=== PATIENT | male | born 1955 | race Caucasian/White ===

== ENCOUNTER 2017-02-11 10:39 | Emergency (ER) | payer MEDICAID, MEDICARE, OTHER ==
[2017-02-11 10:51] VITALS: BP 145/75
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
== END 2017-02-11 11:18 | disposition home or self-care (01) ==
LOC: ER 10:39
DX: L98.9 Disorder of the skin and subcutaneous tissue, unspecified (principal); F17.200 Nicotine dependence, unspecified, uncomplicated
CPT/HCPCS: 99282

== ENCOUNTER 2017-02-28 06:49 | Emergency (ER) | payer MEDICARE ==
[2017-02-28] MEDS ORDERED: IBUPROFEN 800 MG TABLET PO ONE (08:02)
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
[2017-02-28 09:18] VITALS: BP 139/94
== END 2017-02-28 08:55 | disposition home or self-care (01) ==
LOC: ER 06:49
DX: M16.0 Bilateral primary osteoarthritis of hip (principal); G89.29 Other chronic pain; M25.552 Pain in left hip; M25.551 Pain in right hip; R03.0 Elevated blood-pressure reading, without diagnosis of hypertension
CPT/HCPCS: 99283; 73522; A9270

== ENCOUNTER 2017-03-29 16:45 | Emergency (ER) | payer MEDICARE | END 2017-03-29 17:22 | disposition left against medical advice (07) | LOC: ER 16:45 | DX: Z53.9 Procedure and treatment not carried out, unspecified reason (principal); M25.559 Pain in unspecified hip ==

== ENCOUNTER 2017-04-10 14:02 | Emergency (ER) | payer MEDICARE ==
[2017-04-10 14:15] VITALS: BP 134/74
== END 2017-04-10 14:15 | disposition left against medical advice (07) ==
LOC: ER 14:02
DX: Z53.21 Procedure and treatment not carried out due to patient leaving prior to being seen by health care provider (principal)

== ENCOUNTER 2017-04-11 16:09 | Emergency (ER) | payer MEDICARE | END 2017-04-11 17:00 | disposition left against medical advice (07) | LOC: ER 16:09 | DX: Z56.9 Unspecified problems related to employment (principal); M25.569 Pain in unspecified knee ==

== ENCOUNTER 2017-04-12 09:11 | Emergency (ER) | payer MEDICARE ==
[2017-04-12 09:35] VITALS: BP 127/78
== END 2017-04-12 10:02 | disposition left against medical advice (07) ==
LOC: ER 09:11
DX: Z53.21 Procedure and treatment not carried out due to patient leaving prior to being seen by health care provider (principal)

== ENCOUNTER 2017-04-12 11:34 | Emergency (ER) | payer MEDICARE ==
[2017-04-12 11:54] VITALS: BP 135/101
[2017-04-12] MEDS ORDERED: NAPROXEN 250 MG TABLET PO ONE (12:25)
--- NOTE | 2017-04-12 12:30 | ER Document Report ---
HPI - HPI Patient complains to provider of: Patient presents requesting a medication refill Onset: Other - 3 days Onset/Duration: Persistent Quality of pain: Achy Pain Level: 2 Context: Patient complains of a flareup of his chronic knee pain for the past 3 days. Patient states that he has arthritis and has had knee pain like this in the past. Patient states that previously he has been prescribed naproxen and he comes today for refill of his naproxen. Patient denies any trauma to his knees. Patient denies any recent illness. Patient states pain is typical pain that he has had in the past. Associated Symptoms: Other - knee pain. denies: Fever Exacerbated by: Movement Relieved by: Denies Similar symptoms previously: Yes Recently seen / treated by doctor: No - ROS ROS below otherwise negative: Yes Systems Reviewed and Negative: Yes All other systems reviewed and negative - CONSTITUTIONAL Constitutional: DENIES: Fever, Chills - NEURO Neurology: DENIES: Weakness - GASTROINTESTINAL Gastrointestinal: DENIES: Nausea, Patient vomiting - MUSCULOSKELETAL Musculoskeletal: REPORTS: Extremity pain - bilat knees, Swelling - DERM Skin Color: Normal Skin Problems: None Past Medical History - General Information source: Patient - Social History Smoking Status: Never Smoker Frequency of alcohol use: Occasional Drug Abuse: None Occupation: none Lives with: Alone Family History: Hyperlipidemia, Hypertension Patient has suicidal ideation: No Patient has homicidal ideation: No - Past Medical History Cardiac Medical History: Reports: Hx Hypercholesterolemia Renal/ Medical History: Denies: Hx Peritoneal Dialysis GI Medical History: Reports: Hx Hepatitis - c Musculoskeltal Medical History: Reports Hx Arthritis, Reports Hx Musculoskeletal Deformity, Reports Hx Musculoskeletal Trauma Psychiatric Medical History: Reports: Hx Schizophrenia Infectious Medical History: Reports: Hx Hepatitis - c Past Surgical History: Reports: Hx Inguinal Hernia, Hx Oral Surgery - Hair lip repaired - Immunizations Immunizations up to date: Yes Hx Diphtheria, Pertussis, Tetanus Vaccination: Yes Vertical Provider Document - CONSTITUTIONAL Agree With Documented VS: Yes Exam Limitations: No Limitations General Appearance: WD/WN, No Apparent Distress - INFECTION CONTROL TRAVEL OUTSIDE OF THE [place] IN LAST 30 DAYS: No - HEENT HEENT: Atraumatic, Normocephalic - NECK Neck: Normal Inspection, Supple - RESPIRATORY Respiratory: Breath Sounds Normal, No Respiratory Distress, Chest Non-Tender O2 Sat by Pulse Oximetry: 96 - CARDIOVASCULAR Cardiovascular: Regular Rate, Regular Rhythm, No Murmur Pulses: Normal: Posterior tibial - BACK Back: Normal Inspection. negative: CVA Tenderness-Right, CVA Tenderness-Left - MUSCULOSKELETAL/EXTREMETIES Musculoskeletal/Extremeties: MAEW, FROM, Tender - bilat knee tenderness with 1+ edema bilaterally. Normal skin color and temperature overlying joint. No laxity with varus or valgus maneuvers. Patellar tendons intact bilaterally - NEURO Level of Consciousness: Awake, Alert, Appropriate Motor/Sensory: No Motor Deficit - DERM Integumentary: Warm, Dry Notes: Normal skin color and temperature overlying bilateral knee joints Course - Vital Signs Vital signs: Temp Pulse Resp BP Pulse Ox 97.6 F 82 20 135/101 H 96 04/12/17 11:52 04/12/17 11:52 04/12/17 11:52 04/12/17 11:52 04/12/17 11:52 Discharge - Discharge Clinical Impression: Arthritis, Bilateral chronic knee pain Condition: Stable Disposition: HOME, SELF-CARE Instructions: Arthritis ([facility]), Anti-Inflammatory Medication ([facility]) Additional Instructions: Return immediately for any new or worsening symptoms Followup with your primary care provider, call tomorrow to make a followup appointment Prescriptions: Naproxen [Naprosyn 250 Nmg Tablet] 1 tab PO BID PRN #20 tablet PRN Reason: Referrals: [facility] [Provider Group] - Follow up as needed
== END 2017-04-12 12:45 | disposition home or self-care (01) ==
LOC: ER 11:34
DX: G89.29 Other chronic pain (principal); M25.561 Pain in right knee; M25.562 Pain in left knee; M19.90 Unspecified osteoarthritis, unspecified site
CPT/HCPCS: 99281; A9270

== ENCOUNTER 2017-04-27 15:18 | Emergency (ER) | payer MEDICARE ==
[2017-04-27] MEDS ORDERED: NAPROXEN 250 MG TABLET PO ONE (16:54)
--- NOTE | 2017-04-27 16:57 | ER Document Report ---
HPI - HPI Patient complains to provider of: chronic knee pain Onset/Duration: Constant Quality of pain: Achy Pain Level: 4 Context: baseline knee pain and swelling Exacerbated by: Movement, Walking Relieved by: Remaining still Similar symptoms previously: Yes Recently seen / treated by doctor: Yes - DERM Skin Color: Normal Past Medical History - Social History Smoking Status: Current Every Day Smoker Family History: Hyperlipidemia, Hypertension Patient has suicidal ideation: No Patient has homicidal ideation: No - Past Medical History Cardiac Medical History: Reports: Hx Hypercholesterolemia Renal/ Medical History: Denies: Hx Peritoneal Dialysis GI Medical History: Reports: Hx Hepatitis - c Musculoskeltal Medical History: Reports Hx Arthritis, Reports Hx Musculoskeletal Deformity, Reports Hx Musculoskeletal Trauma Psychiatric Medical History: Reports: Hx Schizophrenia Infectious Medical History: Reports: Hx Hepatitis - c Past Surgical History: Reports: Hx Inguinal Hernia, Hx Oral Surgery - Hair lip repaired - Immunizations Immunizations up to date: Yes Hx Diphtheria, Pertussis, Tetanus Vaccination: Yes Vertical Provider Document - CONSTITUTIONAL Agree With Documented VS: Yes Exam Limitations: No Limitations General Appearance: WD/WN, No Apparent Distress - INFECTION CONTROL TRAVEL OUTSIDE OF THE [place] IN LAST 30 DAYS: No - RESPIRATORY O2 Sat by Pulse Oximetry: 99 - CARDIOVASCULAR Pulses: Normal: Femoral, Popliteal, Dorsalis pedis - MUSCULOSKELETAL/EXTREMETIES Musculoskeletal/Extremeties: MAEW, FROM, Non-Tender, Edema. negative: Eccymosis Notes: swelling of bilateral knees without pitting edema - NEURO Level of Consciousness: Awake, Alert, Appropriate Motor/Sensory: No Motor Deficit, No Sensory Deficit - DERM Integumentary: Warm, Dry, No Rash Course - Re-evaluation Re-evalutation: 04/27/17 19:12 Patient is a 60 mg emergency room, no acute distress afebrile. Full range of motion bilateral knees without any evidence of erythema, gout, septic joint. Reason for additional imaging or lab work at this time given that this patient' s baseline. Patient able to ambulate without any difficulty. Discharged with naproxen and follow-up with primary care. - Vital Signs Vital signs: Temp Pulse Resp BP Pulse Ox 97.8 F 95 20 135/88 H 99 04/27/17 15:41 04/27/17 15:41 04/27/17 15:41 04/27/17 15:41 04/27/17 15:41 Discharge - Discharge Clinical Impression: Chronic knee pain Condition: Good Disposition: HOME, SELF-CARE Instructions: Ice & Elevation ([facility]), Arthritis ([facility]), Family Physicians / Practices Additional Instructions: When your prescription is completed for naproxen, you can take aleve over-the- counter Please follow up with a primary care provider Prescriptions: Methylprednisolone [Medrol Dosepack (4 mg/Tab) 21 Tab/Dosepak] 4 mg PO ASDIR PRN #21 tab.ds.pk PRN Reason: Naproxen [Naprosyn 250 mg Tablet] 250 mg PO BID #20 tablet Referrals: MARV FORDE MD [Primary Care Provider] - Follow up as needed
[2017-04-27 17:08] VITALS: BP 126/74
== END 2017-04-27 17:07 | disposition home or self-care (01) ==
LOC: ER 15:18
DX: G89.29 Other chronic pain (principal); M25.569 Pain in unspecified knee; M25.462 Effusion, left knee; M25.461 Effusion, right knee; F17.200 Nicotine dependence, unspecified, uncomplicated
CPT/HCPCS: 99283; A9270

== ENCOUNTER 2017-05-18 16:43 | Emergency (ER) | payer MEDICARE ==
--- NOTE | 2017-05-18 17:29 | ER Document Report ---
ED Extremity Problem, Lower - General Chief Complaint: Ankle Pain Stated Complaint: LESION ON FOREHEAD,ANKLE PAIN Time Seen by Provider: 05/18/17 17:05 Mode of Arrival: Ambulatory Information source: Patient Notes: 51-year-old male presents to ED for pain swelling and bruising to his ankle and knee. TRAVEL OUTSIDE OF THE [place] IN LAST 30 DAYS: No - HPI Patient complains to provider of: Pain, Swelling Location: Ankle, Knee Occurred: Last week Where: [place]doors Onset/Duration: Gradual Quality of pain: Achy Severity: Moderate Pain Level: 4 Recent injury: No Associated symptoms: Painful ambulation Exacerbated by: Movement, Walking Relieved by: Nothing - Related Data Allergies/Adverse Reactions: Horse/Equine Containing Products [Horse/Equine Product Derivatives] Allergy ( Verified 05/18/17 16:48) Past Medical History - General Information source: Patient - Social History Smoking Status: Current Some Day Smoker Cigarette use (# per day): Yes Smoking Education Provided: Yes - Less than 2 minutes Frequency of alcohol use: None Drug Abuse: None Lives with: Alone Family History: Hyperlipidemia, Hypertension Patient has suicidal ideation: No Patient has homicidal ideation: No - Past Medical History Cardiac Medical History: Reports: Hx Hypercholesterolemia Pulmonary Medical History: Reports: None EENT Medical History: Reports: None Neurological Medical History: Reports: None Endocrine Medical History: Reports: None Renal/ Medical History: Reports: None Malignancy Medical History: Reports None GI Medical History: Reports: Hx Hepatitis - c Musculoskeltal Medical History: Reports Hx Arthritis, Reports Hx Musculoskeletal Deformity, Reports Hx Musculoskeletal Trauma Skin Medical History: Reports None Psychiatric Medical History: Reports: Hx Schizophrenia Traumatic Medical History: Reports: Hx Fractures Infectious Medical History: Reports: Hx Hepatitis - c Past Surgical History: Reports: Hx Inguinal Hernia, Hx Oral Surgery - Hair lip repaired - Immunizations Immunizations up to date: Yes Hx Diphtheria, Pertussis, Tetanus Vaccination: Yes Review of Systems - Review of Systems Constitutional: No symptoms reported EENT: No symptoms reported Cardiovascular: No symptoms reported Respiratory: No symptoms reported Gastrointestinal: No symptoms reported Genitourinary: No symptoms reported Male Genitourinary: No symptoms reported Musculoskeletal: No symptoms reported Skin: Change in color - From mid thigh to ankle greenish colored to left leg red swollen area to knee and ankle Hematologic/Lymphatic: No symptoms reported Neurological/Psychological: No symptoms reported -: Yes All other systems reviewed and negative Physical Exam - Vital signs Vitals: Temp Pulse Resp BP Pulse Ox 98.1 F 105 H 18 107/62 100 05/18/17 16:50 05/18/17 16:50 05/18/17 16:50 05/18/17 16:50 05/18/17 16:50 Interpretation: Normal - General General appearance: Appears well, Alert - HEENT Head: Normocephalic, Atraumatic Eyes: Normal Pupils: PERRL - Respiratory Respiratory status: No respiratory distress Chest status: Nontender Breath sounds: Normal Chest palpation: Normal - Cardiovascular Rhythm: Regular Heart sounds: Normal auscultation Murmur: No - Abdominal Inspection: Normal Distension: No distension Bowel sounds: Normal Tenderness: Nontender Organomegaly: No organomegaly - Back Back: Normal, Nontender - Extremities General upper extremity: Normal inspection, Nontender, Normal color, Normal ROM , Normal temperature General lower extremity: Normal ROM, Normal weight bearing. No: Natanael's sign Calf: Tender, Ecchymosis, Other - vasculitis swelling Ankle: Tender, Ecchymosis, Edema Foot: Tender, Ecchymosis, Edema - Neurological Neuro grossly intact: Yes Cognition: Normal Orientation: AAOx4 [place] Coma Scale Eye Opening: Spontaneous Jo Coma Scale Verbal: Oriented [place] Coma Scale Motor: Obeys Commands Jo Coma Scale Total: 15 Speech: Normal Motor strength normal: LUE, RUE, LLE, RLE Sensory: Normal - Psychological Associated symptoms: Normal affect, Normal mood - Skin Skin Temperature: Warm Skin Moisture: Dry Skin Color: Normal Location of irregularity: Extremities Irregularity with: Swelling, Tenderness, Inflammation Course - Re-evaluation Re-evalutation: 05/18/17 17:[address] Dejesus to come and look at the legs and ankles. We were able to get a pedal pulse with Doppler. Treat with Keflex and have patient return in 3 or 4 days and legs are not improving. - Vital Signs Vital signs: Temp Pulse Resp BP Pulse Ox 98.1 F 74 18 144/74 H 97 05/18/17 17:41 05/18/17 17:41 05/18/17 17:41 05/18/17 17:41 05/18/17 17:41 Discharge - Discharge Clinical Impression: Vasculitis Condition: Stable Disposition: HOME, SELF-CARE Instructions: Family Physicians / Practices Additional Instructions: Vasculitis Vasculitis is an immune disease. An inflammation in the blood vessel harris is making them burst. It occurs as your body reacts to something in your blood stream. The most common causes are drugs and infection. The skin sores may look like hives at first, but they aren't usually itchy. Then each spot of rash develops a blackish bruise in it. The skin over the bump may even and form a scab. The disease can last two to four weeks. Severe cases may need to be in the hospital. Most patients recover well at home. We treat vasculitis with steroids (cortisone-type medicine). Mouth sores can be treated by rubbing in diphenhydramine (Benadryl) elixir, or using a topical anesthetic. Return if you have severe headache, vomiting, abdominal pain, shortness of breath, blood in the urine, or if the rash becomes severe. Cephalexin The antibiotic you've been prescribed is a member of the cephalosporin class. This type of antibiotic covers a wide variety of infections, including those of the skin, lungs, and urinary tract. It's useful for staph infections. This antibiotic is slightly similar to the penicillin family. In rare cases , a person who is allergic to penicillin will also be allergic to this medication. If you have had a severe allergic reaction to penicillin, and have not taken this antibiotic since that time, notify your doctor. Antibiotics which cover many germs ("broad spectrum" antibiotics) are more likely to cause diarrhea or "yeast" infections. Women prone to vaginal yeast problems may suffer an attack after taking this antibiotic. In infants, oral thrush (white spots "stuck" on the cheek) or yeast diaper rash may result. See your doctor if these problems occur. Call at once if you develop itching, hives , shortness of breath, or lightheadedness. Acetaminophen Acetaminophen may be taken for pain relief or fever control. It's much safer than aspirin, offering a wider range of "safe" dosages. It is safe during . Some brand names are Tylenol, Panadol, Datril, Anacin 3, Tempra, and Liquiprin. Acetaminophen can be repeated every four hours. The following are maximum recommended dosages: WEIGHT Dose Drops Elixir Chewable( 80mg) (LBS.) drprs=droppers tsp=teaspoon 6 40 mg .4 ml (1/2) 6-11 80 mg .8 ml (full) 1/2 tsp 1 tab 12-16 120 mg 1 1/2 drprs 3/4 tsp 1 1/2 tabs 17-23 160 mg 2 drprs 1 tsp 2 tabs 24-30 240 mg 3 drprs 1 1/2 tsp 3 tabs 30-35 320 mg 2 tsp 4 tabs 36-41 360 mg 2 1/4 tsp 4 1 /2 tabs 42-47 400 mg 2 1/2 tsp 5 tabs 48-53 480 mg 3 tsp 6 tabs 54-59 520 mg 3 1/4 tsp 6 1 /2 tabs 60-64 560 mg 3 1/2 tsp 7 tabs 65-70 600 mg 3 3/4 tsp 7 1 /2 tabs 71-76 640 mg 4 tsp 8 tabs 77-82 720 mg 4 1/2 tsp 9 tabs 83-88 800 mg 5 tsp 10 tabs >89 pounds or adults 650 mg to 900 mg Acetaminophen can be repeated every four hours. Maximum daily dose not to exceed 4000 mg. These maximum recommended dosages are slightly higher than the dosages written on the product container, but these dosages are very safe and well below the toxic dosage for acetaminophen. FOLLOW-UP CARE: If you have been referred to a physician for follow-up care, call the physician s office for an appointment as you were instructed or within the next two days. If you experience worsening or a significant change in your symptoms, notify the physician immediately or return to the Emergency Department at any time for re-evaluation. Return to ED and 2-3 days of her legs are not improving Prescriptions: Cephalexin Monohydrate [Keflex 500 mg Capsule] 500 mg PO QID #28 capsule Referrals: [facility] [Provider Group] - Follow up as needed
[2017-05-18] MEDS ORDERED: CEPHALEXIN 500 MG CAPSULE PO ONE (17:33)
[2017-05-18 17:41] VITALS: BP 144/74
== END 2017-05-18 17:50 | disposition home or self-care (01) ==
LOC: ER 16:43
DX: I77.6 Arteritis, unspecified (principal); M25.579 Pain in unspecified ankle and joints of unspecified foot; M79.89 Other specified soft tissue disorders; F17.210 Nicotine dependence, cigarettes, uncomplicated
CPT/HCPCS: 99283; A9270

== ENCOUNTER 2017-06-03 10:03 | Emergency (ER) | payer MEDICARE ==
--- NOTE | 2017-06-03 10:09 | ER Document Report ---
ED General - General Stated Complaint: WEAKNESS Mode of Arrival: Ambulatory Information source: Patient Notes: 62 yr old male homeless with hx of hep-c presents with complaints of dizziness. Pt noted to be hypotensive by ems. denies any chest pain , sob , difficutly breathing TRAVEL OUTSIDE OF THE [place] IN LAST 30 DAYS: No - HPI Onset: Just prior to arrival Onset/Duration: Sudden Quality of pain: No pain Severity: Mild Pain Level: Denies Associated symptoms: Weakness Exacerbated by: Denies Relieved by: Denies Similar symptoms previously: No Recently seen / treated by doctor: No - Related Data Allergies/Adverse Reactions: Horse/Equine Containing Products [Horse/Equine Product Derivatives] Allergy ( Verified 06/03/17 10:15) Past Medical History - Social History Smoking Status: Current Every Day Smoker Cigarette use (# per day): Yes Chew tobacco use (# tins/day): No Smoking Education Provided: No Family History: Hyperlipidemia, Hypertension - Past Medical History Cardiac Medical History: Reports: Hx Hypercholesterolemia Renal/ Medical History: Denies: Hx Peritoneal Dialysis GI Medical History: Reports: Hx Hepatitis - c Musculoskeltal Medical History: Reports Hx Arthritis, Reports Hx Musculoskeletal Deformity, Reports Hx Musculoskeletal Trauma Psychiatric Medical History: Reports: Hx Schizophrenia Traumatic Medical History: Reports: Hx Fractures Infectious Medical History: Reports: Hx Hepatitis - c Past Surgical History: Reports: Hx Inguinal Hernia, Hx Oral Surgery - Hair lip repaired - Immunizations Immunizations up to date: Yes Hx Diphtheria, Pertussis, Tetanus Vaccination: Yes Physical Exam - Vital signs Vitals: Temp Resp BP Pulse Ox 97.6 F 33 H 107/55 L 93 06/03/17 10:05 06/03/17 10:05 06/03/17 10:05 06/03/17 10:05 Course - Re-evaluation Re-evalutation: 06/03/17 11:28 Patient was found hypotensive by EMS, he states that he rather drink than take medications for his hepatitis and that he is 60 years old and there is no point of any other interventions 06/03/17 13:29 saul wise paged for cocnerns of esophageal variceal bleed 06/03/17 14:05 Gabrielle paged since saul wise able to only place on list 06/03/17 14:24 [facility] accepts but no bed available , placed on list Dr Zepeda accepting hospitalist Natalio paged 06/03/17 14:51 Dr Myla Lance accepts - Vital Signs Vital signs: Temp Pulse Resp BP Pulse Ox 97.6 F 18 90/56 L 92 06/03/17 10:05 06/03/17 14:05 06/03/17 14:05 06/03/17 14:05 - Laboratory Result Diagrams: 06/03/17 10:49 06/03/17 10:49 Laboratory results interpreted by me: 06/03/17 06/03/17 06/03/17 10:29 10:49 10:49 RBC 2.58 L Hgb 8.1 L Hct 26.6 L MCV 103 H MCHC 30.6 L RDW 16.4 H Seg Neutrophils % 85.3 H Lymphocytes % 8.2 L Sodium 134.4 L Potassium 5.1 H Chloride 109 H Carbon Dioxide 13 L BUN 26 H Calcium 8.2 L Total Bilirubin 4.0 H Direct Bilirubin 2.3 H Total Protein 6.0 L Albumin 2.8 L Urine Bilirubin SMALL H Urine Urobilinogen 4.0 H - Diagnostic Test Radiology reviewed: Image reviewed, Reports reviewed Critical Care Note - Critical Care Note Total time excluding time spent on procedures (mins): 45 Comments: minutes of critical care time spent in direct contact evaluating and reevaluating the patient, treating symptoms, reviewing labs and studies and speaking with family and consultants excluding any procedures Discharge - Discharge Clinical Impression: Esophageal varices Qualifiers: Esophageal varices type: unspecified type Esophageal varices bleeding: without bleeding Qualified Code(s): I85.00 - Esophageal varices without bleeding Hepatitis C Qualifiers: Viral hepatitis chronicity: acute Hepatic coma status: without hepatic coma Qualified Code(s): B17.10 - Acute hepatitis C without hepatic coma Anemia Qualifiers: Anemia type: unspecified type Qualified Code(s): D64.9 - Anemia, unspecified Hypotension Qualifiers: Hypotension type: unspecified hypotension type Qualified Code(s): I95.9 - Hypotension, unspecified Condition: Stable Disposition: [facility]
[2017-06-03] MEDS: NORMAL SALINE 1000 ML 1,000 ML IV PRN ×2 (10:17→11:05)
[2017-06-03 10:50] LABS: APPEARANCE,URINE SLIGHTLY-CLOUDY; BILIRUBIN,URINE SMALL (NEGATIVE); GLUCOSE, URINE NEGATIVE (NEGATIVE); KETONES,URINE NEGATIVE (NEGATIVE); LEUKOCYTE ESTERASE,URINE NEGATIVE (NEGATIVE); NITRITE,URINE NEGATIVE (NEGATIVE); PROTEIN,URINE NEGATIVE (NEGATIVE); URINE SPECIFIC GRAVITY 1.024
[2017-06-03 11:21] LABS: ABSOLUTE BASOPHILS # (AUTO) 0.1 10^3/uL (0.0-0.2); ABSOLUTE LYMPHOCYTES (AUTO) 0.5 10^3/uL (0.5-4.7); ABSOLUTE MONOCYTES (AUTO) 0.3 10^3/uL (0.1-1.4); ABSOLUTE NEUT (AUTO) 5.4 10^3/uL (1.7-8.2); BASOPHILS % (AUTO) 1.2 % (0-2); EOSINOPHILS % (AUTO) 0.2 % (0-6); HEMATOCRIT 26.6 % (37.9-51.0); HEMOGLOBIN 8.1 g/dL (13.5-17.0); HGB HCT DIFFERENCE -2.3; LYMPHOCYTES % (AUTO) 8.2 % (13-45); MEAN CORPUSCULAR HEMOGLOBIN 31.5 pg (27.0-33.4); MEAN CORPUSCULAR HGB CONC 30.6 g/dL (32.0-36.0); MEAN CORPUSCULAR VOLUME 103 fl (80-97); MONOCYTES % (AUTO) 5.1 % (3-13); RED BLOOD COUNT 2.58 10^6/uL (4.35-5.55); RED CELL DISTRIBUTION WIDTH 16.4 % (11.5-14.0); SEGMENTED NEUTROPHILS % (AUTO) 85.3 % (42-78); WHITE BLOOD COUNT 6.3 10^3/uL (4.0-10.5)
[2017-06-03] MEDS ORDERED: IPRATROPIUM/ALBUTEROL 0.5-2.5 MG/3 ML AMPUL NEB ONE ×2 (11:28)
[2017-06-03 11:37] LABS: ALANINE AMINOTRANSFERASE 29 U/L (21-72); ALBUMIN 2.8 g/dL (3.5-5.0); ALKALINE PHOSPHATASE 80 U/L (38-126); ANION GAP 12 (5-19); ASPARTATE AMINO TRANSFERASE 36 U/L (17-59); BILIRUBIN,DIRECT 2.3 mg/dL (0.0-0.4); BLOOD UREA NITROGEN 26 mg/dL (7-20); CALCIUM 8.2 mg/dL (8.4-10.2); CARBON DIOXIDE 13 mmol/L (22-30); CHLORIDE 109 mmol/L (98-107); CREATINE KINASE 106 U/L (55-170); CREATININE RESULT 0.99 mg/dL (0.52-1.25); GLUCOSE 105 mg/dL (75-110); POTASSIUM 5.1 mmol/L (3.6-5.0); SODIUM 134.4 mmol/L (137-145)
[2017-06-03 11:47] LABS: CREATINE KINASE MB 1.94 ng/mL (<4.55)
[2017-06-03 11:48] LABS: TROPONIN I < 0.012 ng/mL
[2017-06-03] MEDS ORDERED: PANTOPRAZOLE SODIUM 40 MG VIAL IV ONE (13:27)
[2017-06-03] MEDS ORDERED: NORMAL SALINE 500 ML with OCTREOTIDE ACETATE 500 MCG IV PRN ×2 (13:28)
[2017-06-03] MEDS ORDERED: OCTREOTIDE ACETATE INJ/PF 100 MCG/1 ML SDV IV ONE (13:28)
[2017-06-03] MEDS ORDERED: PANTOPRAZOLE SODIUM 40 MG VIAL IV PRN (13:33)
[2017-06-03] MEDS ORDERED: EPINEPHRINE INJ 1 MG/10 ML DISP.SYRIN ONE (13:42)
[2017-06-03] MEDS ORDERED: NORMAL SALINE 1000 ML 1,000 ML IV ONE (14:09)
[2017-06-03] MEDS ORDERED: SUCCINYLCHOLINE CHLORIDE INJ 200 MG/10 ML VIAL ONE (14:43)
--- NOTE | 2017-06-03 14:59 | RADIOLOGY REPORT (SQ) ---
EXAM DESCRIPTION: CHEST PA/LAT COMPLETED DATE/TIME: 06/03/2017 2:45 pm REASON FOR STUDY: sob COMPARISON: None. EXAM PARAMETERS: NUMBER OF VIEWS: two views TECHNIQUE: Digital Frontal and Lateral radiographic views of the chest acquired. RADIATION DOSE: NA LIMITATIONS: none FINDINGS: LUNGS AND PLEURA: Segmental airspace disease in both upper lobes and in the right lower lo be. No effusions. MEDIASTINUM AND HILAR STRUCTURES: No masses or contour abnormalities. HEART AND VASCULAR STRUCTURES: Heart normal size. No evidence for failure. BONES: No acute findings. HARDWARE: None in the chest. OTHER: No other significant finding. IMPRESSION: Bilateral pneumonia. TECHNICAL DOCUMENTATION: JOB ID: [id number] [employer]- All Rights Reserved
--- NOTE | 2017-06-03 15:42 | RADIOLOGY REPORT (SQ) ---
EXAM DESCRIPTION: CHEST SINGLE VIEW COMPLETED DATE/TIME: 06/03/2017 3:29 pm REASON FOR STUDY: bed 3 s/p cpr COMPARISON: 06/03/2017 and 07/05/2012 EXAM PARAMETERS: NUMBER OF VIEWS: One view. TECHNIQUE: Single frontal radiographic view of the chest acquired. RADIATION DOSE: NA LIMITATIONS: None. FINDINGS: LUNGS AND PLEURA: Re- demonstration of multi focal airspace disease involving predominantl y the right upper lobe and lingula, again noting left upper lobe and right lower lobe involvement. N o pneumothorax. No evidence of large pleural effusion. MEDIASTINUM AND HILAR STRUCTURES: No masses. Contour normal. HEART AND VASCULAR STRUCTURES: Heart normal in size. Normal vasculature. BONES: No evidence of fracture in this patient with reported recent CPR. HARDWARE: None in the chest. OTHER: No other significant finding. IMPRESSION: Re- demonstration of multi lobar pneumonia. TECHNICAL DOCUMENTATION: JOB ID: [id number]
[2017-06-03] MEDS ORDERED: CEFTRIAXONE 1 GM/D5W RTU 50 ML IV ONE (15:43)
[2017-06-03] MEDS ORDERED: PROPOFOL 100 ML IV ONE (16:06)
[2017-06-03] MEDS ORDERED: DEXTROSE 5%-WATER 250 ML with NOREPINEPHRINE BITARTRATE 4 MG IV PRN ×2 (16:49)
[2017-06-03] MEDS ORDERED: NOREPINEPHRINE BITARTRATE INJ/PF 4 MG/4 ML SDV IV ONE (16:52)
[2017-06-03 17:02] LABS: PROTHROMBIN TIME 18.2 SEC (11.4-15.4)
[2017-06-03 17:04] LABS: MAGNESIUM 2.5 mg/dL (1.6-2.3)
--- NOTE | 2017-06-03 17:16 | ER Document Report ---
Doctor's Note Notes: 06/03/17 17:15 Helicopter crew is in the emergency room to transport patient to tertiary care center, patient is critical but in stable condition for transport, they have requested 2 units of emergency release blood to provide patient in route, this is been ordered and will be provided for the patient 06/04/17 10:58
[2017-06-03 17:17] LABS: CREATINE KINASE MB 1.98 ng/mL (<4.55); TROPONIN I 0.029 ng/mL
[2017-06-03 17:29] LABS: URINE BARBITURATES SCREEN NEGATIVE; URINE METHADONE SCREEN NEGATIVE; URINE OPIATES LOW NEGATIVE; URINE PHENCYCLIDINE SCREEN NEGATIVE
--- NOTE | 2017-06-03 17:29 | RADIOLOGY REPORT (SQ) ---
EXAM DESCRIPTION: CHEST SINGLE VIEW COMPLETED DATE/TIME: 06/03/2017 5:20 pm REASON FOR STUDY: post rescuscitation COMPARISON: 06/03/2017 EXAM PARAMETERS: NUMBER OF VIEWS: One view. TECHNIQUE: Single frontal radiographic view of the chest acquired. RADIATION DOSE: NA LIMITATIONS: None. FINDINGS: LUNGS AND PLEURA: Re- demonstration of multi focal airspace opacities. No new pneumothora x or pleural effusion. MEDIASTINUM AND HILAR STRUCTURES: No masses. Contour normal. HEART AND VASCULAR STRUCTURES: Heart normal in size. Normal vasculature. BONES: No acute findings. HARDWARE: Interval placement of an apparent endotracheal tube which terminates at the level of the cl avicular heads. And enteric tube is seen along the expected course of the esophagus, terminating sub diaphragmatically out of the field of view. OTHER: No other significant finding. IMPRESSION: 1. Stable pulmonary exam. No evidence of pneumothorax in this patient status post CPR. 2. Interval placement of an endotracheal tube and enteric tube, without evidence of complication. TECHNICAL DOCUMENTATION: JOB ID: [id number]
[2017-06-03 17:33] LABS: ABSOLUTE BASOPHILS # (AUTO) 0.1 10^3/uL (0.0-0.2); ABSOLUTE LYMPHOCYTES (AUTO) 0.6 10^3/uL (0.5-4.7); ABSOLUTE MONOCYTES (AUTO) 0.3 10^3/uL (0.1-1.4); ABSOLUTE NEUT (AUTO) 6.4 10^3/uL (1.7-8.2); BASOPHILS % (AUTO) 0.8 % (0-2); EOSINOPHILS % (AUTO) 0.3 % (0-6); HEMATOCRIT 25.4 % (37.9-51.0); HGB HCT DIFFERENCE -3.5; LYMPHOCYTES % (AUTO) 7.7 % (13-45); MEAN CORPUSCULAR HGB CONC 28.6 g/dL (32.0-36.0); RED BLOOD COUNT 2.35 10^6/uL (4.35-5.55); RED CELL DISTRIBUTION WIDTH 16.9 % (11.5-14.0); SEGMENTED NEUTROPHILS % (AUTO) 87.2 % (42-78); WHITE BLOOD COUNT 7.3 10^3/uL (4.0-10.5)
[2017-06-03 17:35] LABS: ARTERIAL BLOOD BASE EXCESS -14.4 mmol/L; ARTERIAL BLOOD O2 SATURATION 98.1 % (94-98)
[2017-06-03 17:39] LABS: MEAN CORPUSCULAR VOLUME 109 fl (80-97)
[2017-06-03 17:40] LABS: HEMOGLOBIN 7.3 g/dL (13.5-17.0)
[2017-06-03 18:03] VITALS: BP 111/70
--- NOTE | 2017-06-04 11:14 | EKG REPORT ---
SEVERITY:- BORDERLINE ECG - SINUS TACHYCARDIA LEFT AXIS DEVIATION BORDERLINE R WAVE PROGRESSION, ANTERIOR LEADS : Confirmed by: Alisa Cantu MD 04-Jun-2017 11:13:37
== END 2017-06-03 18:02 | disposition short-term general hospital (02) ==
LOC: ER 10:03 → EH 16:28 → UNDOADMIN 16:28 → ER 18:02
PROC: 0BH17EZ Insertion of Endotracheal Airway into Trachea, Via Natural or Artificial Opening (ICD-10-PCS; principal; 2017-06-03)
DX: I85.00 Esophageal varices without bleeding (principal); B17.10 Acute hepatitis C without hepatic coma; I95.9 Hypotension, unspecified; J18.1 Lobar pneumonia, unspecified organism; D64.9 Anemia, unspecified; R53.1 Weakness; R42 Dizziness and giddiness
CPT/HCPCS: 93005; 96376; 94640 ×2; 99291; 99292; 92950; 51702; 96365; 96366; 96368; 86900; 86901; 36415; 87040; 82553; 36430; 86850; 82803; 82550; 83735; 85025; 85610; 82272; 87077; 80053; 81001; 84484; 87186; 80307; 86920; 71020; 71010; 93010; 31500; P9016; J0171; A9270 ×2; C9113; J0330; J7030; J0696; J2354; J7620; S0164

== ENCOUNTER 2017-06-17 10:52 | Emergency (ER) | payer MEDICARE ==
--- NOTE | 2017-06-17 11:02 | ER Document Report ---
ED Extremity Problem, Lower - General Chief Complaint: Knee Pain Stated Complaint: KNEE PAIN Time Seen by Provider: 06/17/17 11:01 TRAVEL OUTSIDE OF THE [place] IN LAST 30 DAYS: No - HPI Patient complains to provider of: Pain - bilateral knee pain Notes: Homeless man presents with vague complaints of bilateral knee pain. Patient states she has been homeless since 1979. Patient is an alcoholic and has currently been drinking a great deal this morning. Patient was outside in the rain presents soaking wet covering mud and dirt. Patient slurring of speech. Patient does continue to complain of bilateral knee pain. Patient has a walker with him that he uses at baseline. Patient states he is hungry as well. Has not lived in the [facility] for some time. Patient denies fever, chills, chest pain, cough, nausea, vomiting. - Related Data Allergies/Adverse Reactions: Horse/Equine Containing Products [Horse/Equine Product Derivatives] Allergy ( Verified 06/03/17 10:15) Past Medical History - Social History Smoking Status: Unknown if Ever Smoked Family History: Hyperlipidemia, Hypertension - Past Medical History Cardiac Medical History: Reports: Hx Hypercholesterolemia Renal/ Medical History: Denies: Hx Peritoneal Dialysis GI Medical History: Reports: Hx Hepatitis - c Musculoskeltal Medical History: Reports Hx Arthritis, Reports Hx Musculoskeletal Deformity, Reports Hx Musculoskeletal Trauma Psychiatric Medical History: Reports: Hx Schizophrenia Traumatic Medical History: Reports: Hx Fractures Infectious Medical History: Reports: Hx Hepatitis - c Past Surgical History: Reports: Hx Inguinal Hernia, Hx Oral Surgery - Hair lip repaired - Immunizations Immunizations up to date: Yes Hx Diphtheria, Pertussis, Tetanus Vaccination: Yes Review of Systems - Review of Systems Constitutional: No symptoms reported EENT: No symptoms reported Cardiovascular: No symptoms reported Respiratory: No symptoms reported Gastrointestinal: No symptoms reported Genitourinary: No symptoms reported Male Genitourinary: No symptoms reported Musculoskeletal: Joint pain Skin: No symptoms reported Hematologic/Lymphatic: No symptoms reported Neurological/Psychological: No symptoms reported Physical Exam - Vital signs Vitals: Temp Pulse Resp BP Pulse Ox 97.1 F 78 16 113/67 99 06/17/17 10:58 06/17/17 10:58 06/17/17 10:58 06/17/17 10:58 06/17/17 10:58 Interpretation: Normal - General General appearance: Appears well - Disheveled appearing elderly man., Alert - HEENT Head: Normocephalic, Atraumatic Eyes: Normal Pupils: PERRL - Respiratory Respiratory status: No respiratory distress Chest status: Nontender Breath sounds: Normal Chest palpation: Normal - Cardiovascular Rhythm: Regular Heart sounds: Normal auscultation Murmur: No - Abdominal Inspection: Normal Distension: No distension Bowel sounds: Normal Tenderness: Nontender Organomegaly: No organomegaly - Back Back: Normal, Nontender - Extremities General upper extremity: Normal inspection, Nontender, Normal color, Normal ROM , Normal temperature General lower extremity: Normal inspection, Nontender, Normal color, Normal ROM , Normal temperature, Normal weight bearing. No: Natanael's sign - Neurological Neuro grossly intact: Yes Cognition: Normal Orientation: AAOx4 Jo Coma Scale Eye Opening: Spontaneous Jo Coma Scale Verbal: Oriented Jo Coma Scale Motor: Obeys Commands [place] Coma Scale Total: 15 Speech: Normal Motor strength normal: LUE, RUE, LLE, RLE Sensory: Normal - Psychological Associated symptoms: Normal affect, Normal mood - Skin Skin Temperature: Warm Skin Moisture: Dry Skin Color: Normal Course - Re-evaluation Re-evalutation: 06/17/17 15:08 Most alcoholic presents soaking with complaining of chronic knee pain. Patient imaging studies unremarkable. Remainder his labs also unremarkable. Patient given food dry clothing warmed up. Patient feeling much improved. Will be discharged home improved per - Vital Signs Vital signs: Temp Pulse Resp BP Pulse Ox 97.1 F 78 16 113/67 99 06/17/17 10:58 06/17/17 10:58 06/17/17 10:58 06/17/17 10:58 06/17/17 10:58 - Laboratory Result Diagrams: 06/17/17 13:00 06/17/17 12:15 Laboratory results interpreted by me: 06/17/17 06/17/17 12:15 13:00 RBC 3.60 L Hgb 11.3 L Hct 35.4 L MCV 98 H D RDW 17.5 H BUN 3 L Direct Bilirubin 0.6 H Alkaline Phosphatase 158 H Albumin 3.2 L Discharge - Discharge Clinical Impression: Alcohol abuse Condition: Stable Disposition: HOME, SELF-CARE Instructions: [facility] ([facility])
[2017-06-17] MEDS ORDERED: NORMAL SALINE 1000 ML 1,000 ML IV ONE (11:12)
[2017-06-17 12:43] LABS: ALANINE AMINOTRANSFERASE 22 U/L (21-72); ALBUMIN 3.2 g/dL (3.5-5.0); ALCOHOL 228 mg/dL (NONE DETECTED); ALKALINE PHOSPHATASE 158 U/L (38-126); ANION GAP 16 (5-19); ASPARTATE AMINO TRANSFERASE 36 U/L (17-59); BILIRUBIN,DIRECT 0.6 mg/dL (0.0-0.4); BILIRUBIN,TOTAL 0.7 mg/dL (0.2-1.3); BLOOD UREA NITROGEN 3 mg/dL (7-20); CALCIUM 8.5 mg/dL (8.4-10.2); CARBON DIOXIDE 22 mmol/L (22-30); CHLORIDE 106 mmol/L (98-107); GLUCOSE 88 mg/dL (75-110); POTASSIUM 4.3 mmol/L (3.6-5.0); SODIUM 143.7 mmol/L (137-145); TOTAL PROTEIN 6.8 g/dL (6.3-8.2)
--- NOTE | 2017-06-17 13:05 | RADIOLOGY REPORT (SQ) ---
EXAM DESCRIPTION: KNEE RIGHT 2 VIEWS COMPLETED DATE/TIME: 06/17/2017 12:48 pm REASON FOR STUDY: pain COMPARISON: None. NUMBER OF VIEWS: Two views TECHNIQUE: AP and lateral radiographic images acquired of the right knee. LIMITATIONS: None. FINDINGS: MINERALIZATION: Normal. BONES: No acute fracture or dislocation. No worrisome bone lesions. JOINT: No effusion. SOFT TISSUES: No soft tissue swelling. No radio-opaque foreign body. OTHER: No other significant finding. IMPRESSION: NEGATIVE STUDY OF THE RIGHT KNEE. NO RADIOGRAPHIC EVIDENCE OF ACUTE INJURY. TECHNICAL DOCUMENTATION: JOB ID: [id number] [employer]- All Rights Reserved
--- NOTE | 2017-06-17 13:08 | RADIOLOGY REPORT (SQ) ---
EXAM DESCRIPTION: KNEE LEFT 2 VIEWS COMPLETED DATE/TIME: 06/17/2017 12:48 pm REASON FOR STUDY: pain COMPARISON: None. NUMBER OF VIEWS: Two views TECHNIQUE: AP and lateral radiographic images acquired of the left knee. LIMITATIONS: None. FINDINGS: MINERALIZATION: Normal. BONES: No acute fracture or dislocation. No worrisome bone lesions. JOINT: No effusion. SOFT TISSUES: No soft tissue swelling. No radio-opaque foreign body. OTHER: No other significant finding. IMPRESSION: NEGATIVE STUDY OF THE LEFT KNEE. NO RADIOGRAPHIC EVIDENCE OF ACUTE INJURY. TECHNICAL DOCUMENTATION: JOB ID: [id number] [employer]- All Rights Reserved
[2017-06-17 13:29] LABS: HEMATOCRIT 35.4 % (37.9-51.0); HEMOGLOBIN 11.3 g/dL (13.5-17.0); HGB HCT DIFFERENCE -1.5; MEAN CORPUSCULAR HEMOGLOBIN 31.5 pg (27.0-33.4); RED CELL DISTRIBUTION WIDTH 17.5 % (11.5-14.0)
[2017-06-17 13:41] LABS: MEAN CORPUSCULAR VOLUME 98 fl (80-97)
[2017-06-17 13:46] LABS: BASOPHILS % (MANUAL) 1 % (0-2); EOSINOPHILS % (MANUAL) 0 % (0-6); LYMPHOCYTES % (MANUAL) 30 % (13-45); TOTAL CELLS COUNTED 100
[2017-06-17 13:49] LABS: ANISOCYTOSIS 1+; OVALOCYTES SLIGHT; POIKILOCYTOSIS SLIGHT
[2017-06-17 13:50] LABS: PLATELET CLUMPS PRESENT; TARGET CELLS SLIGHT; TEAR DROP CELLS SLIGHT
[2017-06-17 13:51] LABS: WHITE BLOOD COUNT 6.2 10^3/uL (4.0-10.5)
[2017-06-17 16:27] VITALS: BP 98/62
== END 2017-06-17 16:17 | disposition home or self-care (01) ==
LOC: ER 10:52
DX: F10.10 Alcohol abuse, uncomplicated (principal); G89.29 Other chronic pain; M25.562 Pain in left knee; M25.561 Pain in right knee; E78.00 Pure hypercholesterolemia, unspecified; Z86.19 Personal history of other infectious and parasitic diseases
CPT/HCPCS: 99284; 96360; 36415; 80307; 85025; 80076; 80048; 73560 ×2; J7030

== ENCOUNTER 2017-06-17 21:08 | Emergency (ER) | payer MEDICARE ==
--- NOTE | 2017-06-17 23:09 | ER Document Report ---
ED Extremity Problem, Lower - General Chief Complaint: Knee Pain Stated Complaint: KNEE,ANKLE PAIN Time Seen by Provider: 06/17/17 22:56 Notes: The patient is a 62-year-old male, past medical history arthritis, alcoholism, presents with bilateral knee and ankle pain for several months as worsening over the past few weeks. He took an ibuprofen with some relief of his symptoms. He denies injury, redness, fevers, difficulty walking, numbness, tingling or back pain. TRAVEL OUTSIDE OF THE [place] IN LAST 30 DAYS: No - Related Data Allergies/Adverse Reactions: Horse/Equine Containing Products [Horse/Equine Product Derivatives] Allergy ( Verified 06/17/17 23:13) Past Medical History - General Information source: Patient - Social History Smoking Status: Current Every Day Smoker Family History: Hyperlipidemia, Hypertension Patient has suicidal ideation: No Patient has homicidal ideation: No - Past Medical History Cardiac Medical History: Reports: Hx Hypercholesterolemia Renal/ Medical History: Denies: Hx Peritoneal Dialysis GI Medical History: Reports: Hx Hepatitis - c Musculoskeltal Medical History: Reports Hx Arthritis, Reports Hx Musculoskeletal Deformity, Reports Hx Musculoskeletal Trauma Psychiatric Medical History: Reports: Hx Schizophrenia Traumatic Medical History: Reports: Hx Fractures Infectious Medical History: Reports: Hx Hepatitis - c Past Surgical History: Reports: Hx Inguinal Hernia, Hx Oral Surgery - Hair lip repaired - Immunizations Immunizations up to date: Yes Hx Diphtheria, Pertussis, Tetanus Vaccination: Yes Review of Systems - Review of Systems Notes: REVIEW OF SYSTEMS: CONSTITUTIONAL: -fevers, -chills EENT: -eye pain, -difficulty swallowing, -nasal congestion CARDIOVASCULAR:-chest pain, -syncope. RESPIRATORY: -cough, -SOB GASTROINTESTINAL: -abdominal pain, - nausea, -vomiting, -diarrhea GENITOURINARY: -dysuria, -hematuria MUSCULOSKELETAL: -back pain, -neck pain, +B/L ankle and knee pain SKIN: -rash or skin lesions. HEMATOLOGIC: -easy bruising or bleeding. LYMPHATIC: -swollen, enlarged glands. NEUROLOGICAL: -altered mental status or loss of consciousness, -headache, - neurologic symptoms PSYCHIATRIC: -anxiety, -depression. ALL OTHER SYSTEMS REVIEWED AND NEGATIVE. Physical Exam - Vital signs Vitals: Temp Pulse Resp BP Pulse Ox 97.7 F 93 16 135/69 H 99 06/17/17 21:32 06/17/17 21:32 06/17/17 21:32 06/17/17 21:32 06/17/17 21:32 - Notes Notes: PHYSICAL EXAMINATION: GENERAL: Well-appearing, well-nourished and in no acute distress. HEAD: Atraumatic, normocephalic. EYES: Pupils equal round and reactive to light, extraocular movements intact, sclera anicteric, conjunctiva are normal. ENT: nares patent, oropharynx clear without exudates. Moist mucous membranes. NECK: Normal range of motion, supple without lymphadenopathy LUNGS: Breath sounds clear to auscultation bilaterally and equal. No wheezes rales or rhonchi. HEART: Regular rate and rhythm without murmurs ABDOMEN: Soft, nontender, normoactive bowel sounds. No guarding, no rebound. No masses appreciated. EXTREMITIES: B/L mild knee and ankle effusions, no redness, strong distal pulses NEUROLOGICAL: Cranial nerves grossly intact. Normal speech, normal gait. Normal sensory and motor exams. PSYCH: Normal mood, normal affect. SKIN: Warm, Dry, normal turgor, no rashes or lesions noted. Course - Re-evaluation Re-evalutation: No evidence of septic joint and no injuries. Patient provided with Hong wrap for his chronic arthritis and instructions to begin Naprosyn with food. He will follow-up with orthopedics for further evaluation and treatment. - Vital Signs Vital signs: Temp Pulse Resp BP Pulse Ox 98 F 85 12 132/64 H 96 06/17/17 23:52 06/17/17 23:52 06/17/17 23:52 06/17/17 23:52 06/17/17 23:52 Discharge - Discharge Clinical Impression: Chronic pain of both knees Chronic ankle pain Qualifiers: Laterality: bilateral Qualified Code(s): M25.571 - Pain in right ankle and joints of right foot; M25.572 - Pain in left ankle and joints of left foot; G89.29 - Other chronic pain Condition: Stable Disposition: HOME, SELF-CARE Additional Instructions: Arthralgia Arthralgia is pain in the joints. We use the word arthralgia to describe joint pain where there's no history of injury, no known joint disease, and the joints are normal to examination. Arthralgia can be a symptom of an acute illness, such as influenza, hepatitis, or serum sickness. Sometimes the joint pain comes before any other symptoms. Arthralgia can also be an early symptom of joint disease, such as rheumatoid arthritis or lupus. If arthralgia is accompanied by an acute illness that explains the joint pain, such as mononucleosis, no further testing needs to be done. When there's no clear reason for the pain, tests may be done to see if there's an inflammatory disease of the joints. The usual treatment is anti-inflammatory medication, such as ibuprofen. Joint aches can be soothed with a heating pad or hot compress. If joints remain painful more than a few days, you'll need testing and followup. Return if a joint becomes swollen, red, or severely painful. Referrals: JENNY HAMMOND MD [ACTIVE STAFF] - Follow up as needed
[2017-06-17] MEDS ORDERED: NAPROXEN 250 MG TABLET PO ONE (23:47)
[2017-06-18 00:17] VITALS: BP 132/64
== END 2017-06-17 23:52 | disposition home or self-care (01) ==
LOC: ER 21:08
DX: G89.29 Other chronic pain (principal); M25.562 Pain in left knee; M25.561 Pain in right knee; M25.572 Pain in left ankle and joints of left foot; M25.571 Pain in right ankle and joints of right foot; F17.200 Nicotine dependence, unspecified, uncomplicated; E78.00 Pure hypercholesterolemia, unspecified; Z86.19 Personal history of other infectious and parasitic diseases
CPT/HCPCS: 99283; 99284; 96360; 36415; 80307; 85025; 80076; 80048; 73560 ×2; A9270; J7030

== ENCOUNTER 2017-06-18 21:28 | Emergency (ER) | payer MEDICARE ==
--- NOTE | 2017-06-18 22:36 | ER Document Report ---
ED Extremity Problem, Lower - General Chief Complaint: Knee Pain Stated Complaint: LEG PAIN Time Seen by Provider: 06/18/17 22:34 Mode of Arrival: Ambulatory Information source: Patient Notes: Patient is a 62-year-old homeless male who presents to the ER today for bilateral knee pain that is chronic. Patient was just discharged earlier this morning, and is here sometimes on a daily basis with the same complaint. Patient also complains of bilateral ankle pain which he also complained of this morning. He denies any fevers, chills, injury to the ankles or knees. He does not take anything for pain. TRAVEL OUTSIDE OF THE [place] IN LAST 30 DAYS: No - Related Data Allergies/Adverse Reactions: Horse/Equine Containing Products [Horse/Equine Product Derivatives] Allergy ( Verified 06/18/17 21:46) Past Medical History - General Information source: Patient - Social History Smoking Status: Current Every Day Smoker Family History: Hyperlipidemia, Hypertension Patient has suicidal ideation: No Patient has homicidal ideation: No - Past Medical History Cardiac Medical History: Reports: Hx Hypercholesterolemia Renal/ Medical History: Denies: Hx Peritoneal Dialysis GI Medical History: Reports: Hx Hepatitis - c Musculoskeltal Medical History: Reports Hx Arthritis, Reports Hx Musculoskeletal Deformity, Reports Hx Musculoskeletal Trauma Psychiatric Medical History: Reports: Hx Schizophrenia Traumatic Medical History: Reports: Hx Fractures Infectious Medical History: Reports: Hx Hepatitis - c Past Surgical History: Reports: Hx Inguinal Hernia, Hx Oral Surgery - Hair lip repaired - Immunizations Immunizations up to date: Yes Hx Diphtheria, Pertussis, Tetanus Vaccination: Yes Review of Systems - Review of Systems Constitutional: No symptoms reported EENT: No symptoms reported Cardiovascular: No symptoms reported Respiratory: No symptoms reported Gastrointestinal: No symptoms reported Genitourinary: No symptoms reported Male Genitourinary: No symptoms reported Musculoskeletal: See HPI Skin: See HPI Hematologic/Lymphatic: No symptoms reported Neurological/Psychological: No symptoms reported Physical Exam - Vital signs Vitals: Temp Pulse Resp BP Pulse Ox 97.9 F 94 16 143/75 H 95 06/18/17 21:34 06/18/17 21:34 06/18/17 21:34 06/18/17 21:34 06/18/17 21:34 - Notes Notes: PHYSICAL EXAMINATION: Patient: slightly intoxicated,Smiling, in no acute distress. HEAD: Atraumatic, normocephalic. EYES: Pupils equal round and reactive to light, extraocular movements intact, sclera anicteric, conjunctiva are normal. NECK: Normal range of motion, supple without lymphadenopathy LUNGS: CTAB and equal. No wheezes rales or rhonchi. HEART: Regular rate and rhythm without murmurs ABDOMEN: Soft, no tenderness. No guarding, no rebound EXTREMITIES: no tenderness to bilateral knees, Normal range of motion but with pain on extension and flexion of knees, No cyanosis. NEUROLOGICAL: Cranial nerves grossly intact. Normal sensory/motor exams. PSYCH: Normal mood, normal affect. SKIN: Warm, Dry, normal turgor, Erythema to the left ankle and dorsum of left foot, tender to palpation, 1+ pitting edema to the dorsum of the right foot Course - Re-evaluation Re-evalutation: 06/19/17 00:40 Work unremarkable today with a normal white blood cell count. Patient given IV Rocephin here, sent home with a prescription for Bactrim for his left ankle cellulitis, patient tells me that he does have $4 and can go to [facility] in the morning to get this prescription filled. He even repeats that when I walk back into the room at a separate time. - Vital Signs Vital signs: Temp Pulse Resp BP Pulse Ox 97.9 F 94 16 143/75 H 95 06/18/17 21:34 06/18/17 21:34 06/18/17 21:34 06/18/17 21:34 06/18/17 21:34 - Laboratory Result Diagrams: 06/18/17 23:25 06/18/17 23:25 Laboratory results interpreted by me: 06/18/17 06/18/17 23:25 23:25 RBC 3.02 L Hgb 9.7 L Hct 29.7 L MCV 98 H RDW 17.6 H Basophils % 2.1 H Carbon Dioxide 21 L BUN 4 L Direct Bilirubin 0.6 H ALT 20 L Albumin 3.1 L Discharge - Discharge Clinical Impression: Chronic pain of both knees, Cellulitis of left ankle Condition: Stable Disposition: HOME, SELF-CARE Additional Instructions: Return immediately for any new or worsening symptoms. Follow up with primary care provider, call tomorrow to make followup appointment. Prescriptions: Meloxicam [Mobic 15 mg Tablet] 15 mg PO DAILY #30 tablet Sulfamethoxazole/Trimethoprim [Bactrim Ds Tablet] 1 each PO BID #20 tablet
[2017-06-18] MEDS ORDERED: CEFTRIAXONE 1 GM/D5W RTU 50 ML IV ONE (22:48)
[2017-06-18 23:46] LABS: ABSOLUTE BASOPHILS # (AUTO) 0.1 10^3/uL (0.0-0.2); ABSOLUTE EOSINOPHILS # (AUTO) 0.1 10^3/uL (0.0-0.6); ABSOLUTE MONOCYTES (AUTO) 0.6 10^3/uL (0.1-1.4); ABSOLUTE NEUT (AUTO) 2.9 10^3/uL (1.7-8.2); BASOPHILS % (AUTO) 2.1 % (0-2); HEMATOCRIT 29.7 % (37.9-51.0); HEMOGLOBIN 9.7 g/dL (13.5-17.0); HGB HCT DIFFERENCE -0.6; LYMPHOCYTES % (AUTO) 21.8 % (13-45); MEAN CORPUSCULAR HEMOGLOBIN 32.2 pg (27.0-33.4); MEAN CORPUSCULAR HGB CONC 32.7 g/dL (32.0-36.0); MEAN CORPUSCULAR VOLUME 98 fl (80-97); MONOCYTES % (AUTO) 12.5 % (3-13); RED BLOOD COUNT 3.02 10^6/uL (4.35-5.55); RED CELL DISTRIBUTION WIDTH 17.6 % (11.5-14.0); SEGMENTED NEUTROPHILS % (AUTO) 61.6 % (42-78); WHITE BLOOD COUNT 4.7 10^3/uL (4.0-10.5)
[2017-06-19 00:03] LABS: ALANINE AMINOTRANSFERASE 20 U/L (21-72); ALBUMIN 3.1 g/dL (3.5-5.0); ALKALINE PHOSPHATASE 124 U/L (38-126); ANION GAP 10 (5-19); ASPARTATE AMINO TRANSFERASE 38 U/L (17-59); BILIRUBIN,DIRECT 0.6 mg/dL (0.0-0.4); BILIRUBIN,TOTAL 0.8 mg/dL (0.2-1.3); BLOOD UREA NITROGEN 4 mg/dL (7-20); CALCIUM 8.8 mg/dL (8.4-10.2); CARBON DIOXIDE 21 mmol/L (22-30); CHLORIDE 107 mmol/L (98-107); CREATININE RESULT 0.58 mg/dL (0.52-1.25); GLUCOSE 75 mg/dL (75-110); POTASSIUM 4.1 mmol/L (3.6-5.0); SODIUM 137.8 mmol/L (137-145); TOTAL PROTEIN 6.7 g/dL (6.3-8.2)
[2017-06-19] MEDS ORDERED: MELOXICAM 15 MG TABLET PO ONE (00:14)
[2017-06-19 02:16] VITALS: BP 134/82
== END 2017-06-19 02:05 | disposition home or self-care (01) ==
LOC: ER 21:28
DX: G89.29 Other chronic pain (principal); M25.561 Pain in right knee; M25.562 Pain in left knee; L03.116 Cellulitis of left lower limb; M25.571 Pain in right ankle and joints of right foot; M25.572 Pain in left ankle and joints of left foot; R60.0 Localized edema; F17.200 Nicotine dependence, unspecified, uncomplicated; Z91.048 Other nonmedicinal substance allergy status
CPT/HCPCS: 99283; 96365; 36415; 87040; 85025; 80053; J0696

== ENCOUNTER 2017-06-23 22:40 | Emergency (ER) | payer MEDICARE ==
[2017-06-23 22:49] VITALS: BP 128/77
--- NOTE | 2017-06-23 23:02 | ER Document Report ---
ED Extremity Problem, Lower - General Chief Complaint: Knee Pain Stated Complaint: OTOH/KNEE PAIN Time Seen by Provider: 06/23/17 22:45 Mode of Arrival: Ambulatory Information source: Patient Notes: This is a 62-year-old man who presents to the emergency room with bilateral knee pain which is been chronic. He denies any new injury. He denies any fever. TRAVEL OUTSIDE OF THE [place] IN LAST 30 DAYS: No - HPI Patient complains to provider of: Pain Location: Knee Occurred: Other - Last several months Where: Outdoors Onset/Duration: Gradual Quality of pain: Dull Severity: Moderate Pain Level: 2 Recent injury: No Associated symptoms: denies: Chest pain Exacerbated by: Movement Relieved by: Rest - Related Data Allergies/Adverse Reactions: Horse/Equine Containing Products [Horse/Equine Product Derivatives] Allergy ( Verified 06/18/17 21:46) Past Medical History - General Information source: Patient - Social History Smoking Status: Current Every Day Smoker Cigarette use (# per day): Yes Chew tobacco use (# tins/day): No Smoking Education Provided: No Frequency of alcohol use: Heavy Drug Abuse: None Lives with: Alone Family History: Hyperlipidemia, Hypertension - Past Medical History Cardiac Medical History: Reports: Hx Hypercholesterolemia Renal/ Medical History: Denies: Hx Peritoneal Dialysis GI Medical History: Reports: Hx Hepatitis - c Musculoskeltal Medical History: Reports Hx Arthritis, Reports Hx Musculoskeletal Deformity, Reports Hx Musculoskeletal Trauma Psychiatric Medical History: Reports: Hx Schizophrenia Traumatic Medical History: Reports: Hx Fractures Infectious Medical History: Reports: Hx Hepatitis - c Past Surgical History: Reports: Hx Inguinal Hernia, Hx Oral Surgery - Hair lip repaired - Immunizations Immunizations up to date: Yes Hx Diphtheria, Pertussis, Tetanus Vaccination: Yes Review of Systems - Review of Systems Constitutional: denies: Chills, Fever EENT: No symptoms reported Cardiovascular: No symptoms reported Respiratory: No symptoms reported Gastrointestinal: No symptoms reported Genitourinary: No symptoms reported Male Genitourinary: No symptoms reported Musculoskeletal: See HPI Skin: No symptoms reported Hematologic/Lymphatic: No symptoms reported Neurological/Psychological: No symptoms reported Physical Exam - Vital signs Vitals: Temp Pulse Resp BP Pulse Ox 98.3 F 91 20 128/77 H 99 06/23/17 22:49 06/23/17 22:49 06/23/17 22:49 06/23/17 22:49 06/23/17 22:49 Notes: Physical exam: GENERAL: 62-year-old man, alert and oriented 3, no acute distress HEAD: Atraumatic, normocephalic. EYES: Pupils equal round and reactive to light, extraocular movements intact, sclera anicteric, conjunctiva are normal. ENT: TMs normal, nares patent, oropharynx clear without exudates. Moist mucous membranes. NECK: Normal range of motion, supple without lymphadenopathy or JVD. LUNGS: Breath sounds clear to auscultation bilaterally and equal. No wheezes rales or rhonchi. HEART: Regular rate and rhythm without murmurs, rubs or gallops. ABDOMEN: Soft, normoactive bowel sounds. No tenderness to palpation. No guarding, no rebound. No masses appreciated. EXTREMITIES: Limited range of motion of bilateral knees with obvious arthritis. There is no joint effusion or erythema or warmth over the joint. He does have mild bilateral pedal edema (he states he walks a lot). NEUROLOGICAL: Cranial nerves II through XII grossly intact. Normal speech, normal gait. PSYCH: Normal mood, normal affect. SKIN: Warm, Dry, normal turgor, no rashes or lesions noted. Course - Vital Signs Vital signs: Temp Pulse Resp BP Pulse Ox 98.3 F 91 20 128/77 H 99 06/23/17 22:49 06/23/17 22:49 06/23/17 22:49 06/23/17 22:49 06/23/17 22:49 Discharge - Discharge Clinical Impression: Osteoarthritis both knees Condition: Stable Disposition: HOME, SELF-CARE Additional Instructions: Ice and elevation at night. You can do Motrin for pain during the day. Follow-up with the [facility]. Referrals: [facility] [Provider Group] - Follow up as needed
== END 2017-06-23 23:05 | disposition home or self-care (01) ==
LOC: ER 22:40
DX: M17.0 Bilateral primary osteoarthritis of knee (principal); M25.561 Pain in right knee; M25.562 Pain in left knee; F17.210 Nicotine dependence, cigarettes, uncomplicated
CPT/HCPCS: 99283

== ENCOUNTER 2017-06-27 04:54 | Emergency (ER) | payer MEDICARE, MEDICAID ==
--- NOTE | 2017-06-27 07:00 | ER Document Report ---
ED General - General Chief Complaint: Knee Pain Stated Complaint: KNEE PAIN Time Seen by Provider: 06/27/17 06:51 Notes: 62-year-old male homeless gentleman with bilateral chronic knee and ankle pain chronically, presents with a flareup of his chronic pain. Has been constant for 7 days. He has not been able to take meds because he lost his prescription for both an antibiotic and pain medication. He is unable to elevate his feet secondary to being homeless. He was recently diagnosed with left foot cellulitis and was on a course of antibiotics. He denies fever chills. TRAVEL OUTSIDE OF THE [place] IN LAST 30 DAYS: No - Related Data Allergies/Adverse Reactions: Horse/Equine Containing Products [Horse/Equine Product Derivatives] Allergy ( Verified 06/18/17 21:46) Past Medical History - Social History Smoking Status: Current Every Day Smoker Family History: Hyperlipidemia, Hypertension Patient has suicidal ideation: No Patient has homicidal ideation: No - Past Medical History Cardiac Medical History: Reports: Hx Hypercholesterolemia Renal/ Medical History: Denies: Hx Peritoneal Dialysis GI Medical History: Reports: Hx Hepatitis - c Musculoskeltal Medical History: Reports Hx Arthritis, Reports Hx Musculoskeletal Deformity, Reports Hx Musculoskeletal Trauma Psychiatric Medical History: Reports: Hx Schizophrenia Traumatic Medical History: Reports: Hx Fractures Infectious Medical History: Reports: Hx Hepatitis - c Past Surgical History: Reports: Hx Inguinal Hernia, Hx Oral Surgery - Hair lip repaired - Immunizations Immunizations up to date: Yes Hx Diphtheria, Pertussis, Tetanus Vaccination: Yes Review of Systems - Review of Systems Notes: REVIEW OF SYSTEMS GEN: Denies fever, chills, weight loss ENT: Denies sore throat, nasal discharge, ear pain EYES: Denies blurry vision, eye pain, discharge CV: Denies chest pain, palpitations, edema RESP: "Hacking cough" GI: Denies abdominal pain, nausea, vomiting, diarrhea MSK: Lateral knee pain and left leg pain. SKIN: Denies rash, skin lesions LYMPH: Denies swollen glands/lymph nodes NEURO: Denies headache, focal weakness or numbness, dizziness PSYCH: Denies depression, suicidal or homicidal ideation PHYSICAL EXAMINATION General: No acute distress, well-nourished Head: Atraumatic, normocephalic ENT: Mouth normal, oropharynx moist, no exudates or tonsillar enlargement Eyes: Conjunctiva normal, pupils equal, lids normal Neck: No JVD, supple, no guarding CVS: Normal rate, regular rhythm, no murmurs Resp: No resp distress, equal and normal breath sounds bilaterally GI: Nondistended, soft, no tenderness to palpation, no rebound or guarding Ext: No deformities, crepitus but no effusion of both knees. Back: No CVA or midline TTP Skin: Well perfused. Mild erythema on the right foot dorsally with signs of maceration between the toes. Mild tenderness. Lymphatic: No lymphadeopathy noted Neuro: Awake, alert. Face symmetric. GCS 15. Physical Exam - Vital signs Vitals: Temp Pulse Resp BP Pulse Ox 97.4 F 116 H 13 119/78 100 06/27/17 05:08 06/27/17 05:08 06/27/17 05:08 06/27/17 05:08 06/27/17 05:08 Course - Re-evaluation Re-evalutation: 06/27/17 06:59 62-year-old male with osteoarthritis presents with flareup of chronic pain but no signs of acute arthritis in his joints. He has no fever. He does seem to have a resolving foot cellulitis on the left which I will continue antibiotics for. He will be prescribed Motrin for his pain. I have discussed with the patient there likely diagnosis, aftercare plan, follow -up plans and my usual and customary return precautions. They verbalized understanding of this. 06/27/17 07:00 - Vital Signs Vital signs: Temp Pulse Resp BP Pulse Ox 97.4 F 116 H 13 119/78 100 06/27/17 05:08 06/27/17 05:08 06/27/17 05:08 06/27/17 05:08 06/27/17 05:08 Discharge - Discharge Clinical Impression: Chronic pain of both knees Condition: Good Disposition: HOME, SELF-CARE Instructions: Ice & Elevation ([facility]) Additional Instructions: Infection in her left foot seems to be resolving however you should finish her antibiotic course. I prescribed you some additional days worth of antibiotics as well as anti-inflammatories. Prescriptions: Cephalexin Monohydrate [Keflex 500 mg Capsule] 500 mg PO QID #20 capsule Ibuprofen 400 mg PO Q6 14 Days tablet
[2017-06-27 07:36] VITALS: BP 110/92
== END 2017-06-27 07:15 | disposition home or self-care (01) ==
LOC: ER 04:54
DX: G89.29 Other chronic pain (principal); M25.561 Pain in right knee; M25.562 Pain in left knee; M25.571 Pain in right ankle and joints of right foot; M25.572 Pain in left ankle and joints of left foot; M19.90 Unspecified osteoarthritis, unspecified site; T39.96XA Underdosing of unspecified nonopioid analgesic, antipyretic and antirheumatic, initial encounter; L03.116 Cellulitis of left lower limb; T36.96XA Underdosing of unspecified systemic antibiotic, initial encounter; Z91.128 Patient's intentional underdosing of medication regimen for other reason; Z91.14 Patient's other noncompliance with medication regimen; R05 Cough; Z59.0 Homelessness; F17.200 Nicotine dependence, unspecified, uncomplicated; Z91.048 Other nonmedicinal substance allergy status
CPT/HCPCS: 99283

== ENCOUNTER 2017-06-29 15:12 | Emergency (ER) | payer MEDICARE, MEDICAID ==
[2017-06-29] MEDS ORDERED: NORMAL SALINE 1000 ML 1,000 ML IV ONE ×2 (15:54→17:47)
[2017-06-29] MEDS ORDERED: VANCOMYCIN HCL INJ 1000 MG VIAL IV ONE (15:54)
[2017-06-29] MEDS ORDERED: MORPHINE SULFATE 10 MG/ML INJ IV ONE (15:54)
[2017-06-29] MEDS ORDERED: PIPERACILLIN/TAZOBACTAM 3.375 GM VIAL IV ONE (15:54)
--- NOTE | 2017-06-29 15:56 | ER Document Report ---
ED Medical Screen (RME) - General Chief Complaint: Foot Pain Stated Complaint: LEFT FOOT PAIN Time Seen by Provider: 06/29/17 15:52 Mode of Arrival: Medic Information source: Patient Notes: 62 yr old male homeless who was diagnosed with foot infection 2 days ago but did not fill his prescriptions presents with worsening redness and pain I have greeted and performed a rapid initial assessment of this patient. A comprehensive ED assessment and evaluation of the patient, analysis of test results and completion of the medical decision making process will be conducted by additional ED providers. PHYSICAL EXAMINATION: GENERAL: Well-appearing, well-nourished and in no acute distress. HEAD: Atraumatic, normocephalic. EYES: Pupils equal round extraocular movements intact, conjunctiva are normal. ENT: Nares patent NECK: Normal range of motion LUNGS: No respiratory distress Musculoskeletal: Normal range of motion NEUROLOGICAL: Normal speech, normal gait. PSYCH: Normal mood, normal affect. SKIN: left foot cellulitis above the ankle to the toes, edemetous , with area of fluctuance at the base of the 3rd-5th digits TRAVEL OUTSIDE OF THE [place] IN LAST 30 DAYS: No - Related Data Allergies/Adverse Reactions: Horse/Equine Containing Products [Horse/Equine Product Derivatives] Allergy ( Verified 06/29/17 15:25) Past Medical History - Social History Chew tobacco use (# tins/day): No Frequency of alcohol use: Heavy Drug Abuse: None - Past Medical History Cardiac Medical History: Reports: Hx Hypercholesterolemia Renal/ Medical History: Denies: Hx Peritoneal Dialysis GI Medical History: Reports: Hx Hepatitis - c Musculoskeltal Medical History: Reports Hx Arthritis, Reports Hx Musculoskeletal Deformity, Reports Hx Musculoskeletal Trauma Psychiatric Medical History: Reports: Hx Schizophrenia Traumatic Medical History: Reports: Hx Fractures Infectious Medical History: Reports: Hx Hepatitis - c Past Surgical History: Reports: Hx Abdominal Surgery - hernia repair, Hx Inguinal Hernia, Hx Oral Surgery - Hair lip repaired, Hx Rectal Surgery - hemorrhoid surgery - Immunizations Immunizations up to date: Yes Hx Diphtheria, Pertussis, Tetanus Vaccination: Yes Physical Exam - Vital signs Vitals: Temp Pulse Resp BP Pulse Ox 97.7 F 112 H 18 131/73 H 100 06/29/17 15:25 06/29/17 15:25 06/29/17 15:25 06/29/17 15:25 06/29/17 15:25 Course - Vital Signs Vital signs: Temp Pulse Resp BP Pulse Ox 97.7 F 112 H 18 131/73 H 100 06/29/17 15:25 06/29/17 15:25 06/29/17 15:25 06/29/17 15:25 06/29/17 15:25
--- NOTE | 2017-06-29 16:59 | ER Document Report ---
ED Extremity Problem, Lower - General Chief Complaint: Foot Pain Stated Complaint: LEFT FOOT PAIN Time Seen by Provider: 06/29/17 15:52 Mode of Arrival: Medic Notes: The patient is a 62-year-old male past medical history chronic alcoholism, chronic wounds on his feet, presents with worsening redness of bilateral feet. He was put on clindamycin last week and this improved his cellulitis. He was given a prescription for Keflex 2 days ago, but he was unable to fill it because it was too expensive. Patient denies numbness, tingling, open wounds, chest pain, shortness of breath, fevers, headache, back pain or urinary symptoms. TRAVEL OUTSIDE OF THE [place] IN LAST 30 DAYS: No - Related Data Allergies/Adverse Reactions: Horse/Equine Containing Products [Horse/Equine Product Derivatives] Allergy ( Verified 06/29/17 15:25) Past Medical History - General Information source: Patient - Social History Smoking Status: Former Smoker Chew tobacco use (# tins/day): No Frequency of alcohol use: Heavy Drug Abuse: None Family History: Hyperlipidemia, Hypertension - Past Medical History Cardiac Medical History: Reports: Hx Hypercholesterolemia Renal/ Medical History: Denies: Hx Peritoneal Dialysis GI Medical History: Reports: Hx Hepatitis - c Musculoskeltal Medical History: Reports Hx Arthritis, Reports Hx Musculoskeletal Deformity, Reports Hx Musculoskeletal Trauma Psychiatric Medical History: Reports: Hx Schizophrenia Traumatic Medical History: Reports: Hx Fractures Infectious Medical History: Reports: Hx Hepatitis - c Past Surgical History: Reports: Hx Abdominal Surgery - hernia repair, Hx Inguinal Hernia, Hx Oral Surgery - Hair lip repaired, Hx Rectal Surgery - hemorrhoid surgery - Immunizations Immunizations up to date: Yes Hx Diphtheria, Pertussis, Tetanus Vaccination: Yes Review of Systems - Review of Systems Notes: REVIEW OF SYSTEMS: CONSTITUTIONAL: -fevers, -chills EENT: -eye pain, -difficulty swallowing, -nasal congestion CARDIOVASCULAR:-chest pain, -syncope. RESPIRATORY: -cough, -SOB GASTROINTESTINAL: -abdominal pain, - nausea, -vomiting, -diarrhea GENITOURINARY: -dysuria, -hematuria MUSCULOSKELETAL: +B/L foot pain, -back pain, -neck pain SKIN: +B/L foot redness HEMATOLOGIC: -easy bruising or bleeding. LYMPHATIC: -swollen, enlarged glands. NEUROLOGICAL: -altered mental status or loss of consciousness, -headache, - neurologic symptoms PSYCHIATRIC: -anxiety, -depression. ALL OTHER SYSTEMS REVIEWED AND NEGATIVE. Physical Exam - Vital signs Vitals: Temp Pulse Resp BP Pulse Ox 97.7 F 112 H 18 131/73 H 100 06/29/17 15:25 06/29/17 15:25 06/29/17 15:25 06/29/17 15:25 06/29/17 15:25 - Notes Notes: PHYSICAL EXAMINATION: GENERAL: Well-appearing, well-nourished and in no acute distress. HEAD: Atraumatic, normocephalic. EYES: Pupils equal round and reactive to light, extraocular movements intact, sclera anicteric, conjunctiva are normal. ENT: nares patent, oropharynx clear without exudates. Moist mucous membranes. NECK: Normal range of motion, supple without lymphadenopathy LUNGS: Breath sounds clear to auscultation bilaterally and equal. No wheezes rales or rhonchi. HEART: Regular rate and rhythm without murmurs ABDOMEN: Soft, nontender, normoactive bowel sounds. No guarding, no rebound. No masses appreciated. EXTREMITIES: Normal range of motion, no pitting or edema. No cyanosis. NEUROLOGICAL: Cranial nerves grossly intact. Normal speech, normal gait. Normal sensory and motor exams. PSYCH: Normal mood, normal affect. SKIN: Erythema and warmth of B/L feet up to ankles. No crepitus. Course - Re-evaluation Re-evalutation: Patient appears very well. No fevers and normal white count. No crepitus and no gas on foot x-ray to suggest necrotizing fasciitis. Patient unable to afford his Keflex, but told him that it is $4 at [facility]. His lactate improved after IV fluids and he was given first dose of broad-spectrum antibiotics. Patient said that he will go right to [facility] to fill his prescription. Also given him return precautions and he understands. - Vital Signs Vital signs: Temp Pulse Resp BP Pulse Ox 97.7 F 112 H 18 131/73 H 100 06/29/17 15:25 06/29/17 15:25 06/29/17 15:25 06/29/17 15:25 06/29/17 15:25 - Laboratory Result Diagrams: 06/29/17 16:50 06/29/17 16:50 Laboratory results interpreted by me: 08/06/29/17 06/29/17 16:50 16:50 16:50 RBC 4.00 L Hgb 12.9 L MCV 98 H RDW 17.1 H BUN 6 L Glucose 122 H Lactic Acid 3.4 H Direct Bilirubin 0.6 H Alkaline Phosphatase 176 H - Diagnostic Test Radiology reviewed: Image reviewed, Reports reviewed Radiology results interpreted by me: Foot x-ray: No acute fracture. Dorsal forefoot soft tissue swelling without radiopaque foreign body or soft tissue gas. - EKG Interpretation by Me EKG shows normal: Sinus rhythm, [place], Intervals, QRS Complexes, ST-T Waves Rate: Normal - HR 93 When compared to previous EKG there are: No significant change Discharge - Discharge Clinical Impression: Cellulitis of foot Condition: Stable Disposition: HOME, SELF-CARE Additional Instructions: CELLULITIS: You have an infection of your skin and underlying soft tissues called cellulitis. This is due to bacteria, which can enter through any break in the skin, or even through an irritated hair follicle. Untreated, cellulitis will usually worsen. Antibiotics are required. Usually, warm packs or warm soaks, and elevation of the infected area are recommended. You should start getting better within 24 to 36 hours. Most infections respond quickly to the right medication. Follow-up care is important, however, to check for abscess (boil) formation, unsuspected foreign body, or resistant infection. If you develop fever, chills, or if the area of infection is becoming rapidly more swollen or painful, call the doctor at once. ANTIBIOTIC THERAPY: You have been given an antibiotic prescription. It's important that you take all the medication, unless instructed otherwise by your physician. Failure to complete the entire course can result in relapse of your condition. Common side effects of antibiotics include nausea, intestinal cramping, or diarrhea. Women may develop vaginal yeast infections, and babies can get yeast (thrush) in the mouth following the use of antibiotics. Contact your physician if you develop significant side effects from this medication. Allergy to this antibiotic can result in hives, wheezing, faintness, or itching. If symptoms of allergy occur, stop the medication and call the doctor. FOLLOW-UP CARE: If you have been referred to a physician for follow-up care, call the physician s office for an appointment as you were instructed or within the next two days. If you experience worsening or a significant change in your symptoms, notify the physician immediately or return to the Emergency Department at any time for re-evaluation. Prescriptions: Cephalexin Monohydrate [Keflex 500 mg Capsule] 500 mg PO Q8H 7 Days capsule Referrals: [facility] [Outside] - Follow up as needed
--- NOTE | 2017-06-29 17:04 | RADIOLOGY REPORT (SQ) ---
EXAM DESCRIPTION: FOOT LEFT COMPLETE COMPLETED DATE/TIME: 06/29/2017 4:16 pm REASON FOR STUDY: abscess with cellulitis COMPARISON: None. NUMBER OF VIEWS: Three views. TECHNIQUE: AP, lateral and oblique radiographic images acquired of the left foot. LIMITATIONS: None. FINDINGS: MINERALIZATION: Normal. BONES: No acute fracture or dislocation. No worrisome bone lesions. JOINTS: No effusions. SOFT TISSUES: Diffuse dorsal left foot soft tissue swelling. No foreign body. No soft tissue gas OTHER: No other significant finding. IMPRESSION: No acute fracture. Dorsal forefoot soft tissue swelling without radiopaque foreign body or soft tissue gas TECHNICAL DOCUMENTATION: JOB ID: [id number] [employer]- All Rights Reserved
[2017-06-29 17:08] LABS: HEMATOCRIT 39.1 % (37.9-51.0); HEMOGLOBIN 12.9 g/dL (13.5-17.0); HGB HCT DIFFERENCE -0.4; MEAN CORPUSCULAR HEMOGLOBIN 32.3 pg (27.0-33.4); MEAN CORPUSCULAR VOLUME 98 fl (80-97); RED CELL DISTRIBUTION WIDTH 17.1 % (11.5-14.0); WHITE BLOOD COUNT 4.7 10^3/uL (4.0-10.5)
[2017-06-29 17:11] LABS: PROTHROMBIN TIME 11.8 SEC (11.4-15.4)
[2017-06-29 17:16] LABS: VENOUS BLOOD BASE EXCESS 0.9 mmol/L; VENOUS BLOOD HCO3 26.8 mmol/L (20-32); VENOUS BLOOD PCO2 47.8 mmHg (35-63); VENOUS BLOOD PH 7.37 (7.30-7.42)
[2017-06-29 17:26] LABS: ALANINE AMINOTRANSFERASE 21 U/L (21-72); ALBUMIN 4.1 g/dL (3.5-5.0); ALKALINE PHOSPHATASE 176 U/L (38-126); ANION GAP 13 (5-19); ASPARTATE AMINO TRANSFERASE 38 U/L (17-59); BILIRUBIN,DIRECT 0.6 mg/dL (0.0-0.4); BILIRUBIN,TOTAL 0.6 mg/dL (0.2-1.3); BLOOD UREA NITROGEN 6 mg/dL (7-20); CALCIUM 9.8 mg/dL (8.4-10.2); CARBON DIOXIDE 25 mmol/L (22-30); CHLORIDE 104 mmol/L (98-107); CREATININE RESULT 0.72 mg/dL (0.52-1.25); GLUCOSE 122 mg/dL (75-110); POTASSIUM 4.1 mmol/L (3.6-5.0); SODIUM 141.6 mmol/L (137-145); TOTAL PROTEIN 8.2 g/dL (6.3-8.2)
[2017-06-29 17:33] LABS: BASOPHILS % (MANUAL) 2 % (0-2); EOSINOPHILS % (MANUAL) 2 % (0-6); LYMPHOCYTES % (MANUAL) 37 % (13-45); TOTAL CELLS COUNTED 100
[2017-06-29 17:36] LABS: ANISOCYTOSIS 1+; POIKILOCYTOSIS SLIGHT; TOXIC GRANULATION SLIGHT
[2017-06-29 17:46] LABS: APPEARANCE,URINE CLEAR; BILIRUBIN,URINE NEGATIVE (NEGATIVE); GLUCOSE, URINE NEGATIVE (NEGATIVE); KETONES,URINE NEGATIVE (NEGATIVE); LEUKOCYTE ESTERASE,URINE NEGATIVE (NEGATIVE); NITRITE,URINE NEGATIVE (NEGATIVE); PROTEIN,URINE NEGATIVE (NEGATIVE); URINE SPECIFIC GRAVITY 1.013; UROBILINOGEN,URINE NEGATIVE mg/dL (<2.0)
--- NOTE | 2017-06-29 21:30 | EKG REPORT ---
SEVERITY:- ABNORMAL ECG - SINUS RHYTHM ABNRM R PROG, CONSIDER ASMI OR LEAD PLACEMENT NONSPECIFIC T ABNORMALITIES, LATERAL LEADS : Confirmed by: Manny Alicea 29-Jun-2017 21:29:58
[2017-06-29 21:32] VITALS: BP 143/76
== END 2017-06-29 21:13 | disposition home or self-care (01) ==
LOC: ER 15:12
DX: L03.116 Cellulitis of left lower limb (principal); M79.672 Pain in left foot; F10.20 Alcohol dependence, uncomplicated; Z87.891 Personal history of nicotine dependence
CPT/HCPCS: 93005; 99284; 36415; 87040; 87086; 82962; 85025; 85610; 87088; 80053; 81001; 87186; 82803; 83605; 73630; 93010; J2270; J7030; J3370; J2543

== ENCOUNTER 2017-06-30 13:55 | Emergency (ER) | payer MEDICARE, MEDICAID ==
--- NOTE | 2017-06-30 14:48 | ER Document Report ---
ED Medical Screen (RME) - General TRAVEL OUTSIDE OF THE [place] IN LAST 30 DAYS: No <AGATHA KELLEY - Last Filed: 06/30/17 14:54> <SAM COLBERT - Last Filed: 06/30/17 16:36> - General Chief Complaint: ETOH Abuse Stated Complaint: POSSIBLE ETOH Time Seen by Provider: 06/30/17 14:36 Notes: Patient is a 62 year old male presenting to the ED for EtOH abuse. Patient was brought in by EMS. Patient has been homeless since May 06, 2017. Patient drinks EtOH daily and states he drinks about 1 pint of EtOH per day. Patient states he is having a hard time. Patient does complain of some knee pain which is chronic in nature. Patient called 911 today. Patient used to see Dr. Grigsby. (AGATHA KELLEY) - Related Data Allergies/Adverse Reactions: Horse/Equine Containing Products [Horse/Equine Product Derivatives] Allergy ( Verified 06/30/17 14:14) Past Medical History - Social History Cigarette use (# per day): No Chew tobacco use (# tins/day): No Frequency of alcohol use: Heavy Drug Abuse: None - Past Medical History Cardiac Medical History: Reports: Hx Hypercholesterolemia Renal/ Medical History: Denies: Hx Peritoneal Dialysis GI Medical History: Reports: Hx Hepatitis - c Musculoskeltal Medical History: Reports Hx Arthritis, Reports Hx Musculoskeletal Deformity, Reports Hx Musculoskeletal Trauma Psychiatric Medical History: Reports: Hx Schizophrenia Traumatic Medical History: Reports: Hx Fractures Infectious Medical History: Reports: Hx Hepatitis - c Past Surgical History: Reports: Hx Abdominal Surgery - hernia repair, Hx Inguinal Hernia, Hx Oral Surgery - Hair lip repaired, Hx Rectal Surgery - hemorrhoid surgery - Immunizations Immunizations up to date: Yes Hx Diphtheria, Pertussis, Tetanus Vaccination: Yes <AGATHA KELLEY - Last Filed: 06/30/17 14:54> Physical Exam <AGATHA KELLEY - Last Filed: 06/30/17 14:54> <SAM COLBERT - Last Filed: 06/30/17 16:36> - Vital signs Vitals: Temp Pulse Resp BP Pulse Ox 98.6 F 110 H 20 100/62 97 06/30/17 14:14 06/30/17 14:14 06/30/17 14:14 06/30/17 14:14 06/30/17 14:14 - Notes Notes: GENERAL: Confused, tearful, doesn't know why he is here, appears intoxicated. LUNGS: Clear to auscultation bilaterally, no wheezes, rales, or rhonchi. No respiratory distress. HEART: Regular rate and rhythm. No murmurs, gallops, or rubs. (AGATHA KELLEY) Course - Laboratory Result Diagrams: 06/30/17 14:55 06/30/17 14:55 <SAM COLBERT - Last Filed: 06/30/17 16:36> - Vital Signs Vital signs: Temp Pulse Resp BP Pulse Ox 98.6 F 110 H 20 100/62 97 06/30/17 14:14 06/30/17 14:14 06/30/17 14:14 06/30/17 14:14 06/30/17 14:14 - Laboratory Laboratory results interpreted by me: 06/30/17 06/30/17 14:55 14:55 RBC 3.83 L Hgb 12.3 L Hct 36.9 L RDW 17.0 H Basophils % 2.8 H BUN 4 L ALT 20 L Alkaline Phosphatase 164 H Salicylates < 1.0 L Acetaminophen < 10 L Doctor's Discharge <AGATHA KELLEY - Last Filed: 06/30/17 14:54> <SAM COLBERT - Last Filed: 06/30/17 16:36> - Discharge Prescriptions: Cephalexin Monohydrate [Keflex 500 mg Capsule] 500 mg PO Q6H 7 Days #28 capsule Scribe Documentation - Scribe Written by Scribe:: Arminda Eason 06/30/17 14:55 acting as scribe for :: Elias <AGATHA KELLEY - Last Filed: 06/30/17 14:54>
[2017-06-30 15:19] LABS: ABSOLUTE BASOPHILS # (AUTO) 0.1 10^3/uL (0.0-0.2); ABSOLUTE EOSINOPHILS # (AUTO) 0.2 10^3/uL (0.0-0.6); ABSOLUTE LYMPHOCYTES (AUTO) 1.5 10^3/uL (0.5-4.7); ABSOLUTE MONOCYTES (AUTO) 0.4 10^3/uL (0.1-1.4); ABSOLUTE NEUT (AUTO) 2.3 10^3/uL (1.7-8.2); BASOPHILS % (AUTO) 2.8 % (0-2); EOSINOPHILS % (AUTO) 4.1 % (0-6); HEMATOCRIT 36.9 % (37.9-51.0); HEMOGLOBIN 12.3 g/dL (13.5-17.0); LYMPHOCYTES % (AUTO) 33.4 % (13-45); MEAN CORPUSCULAR HEMOGLOBIN 32.1 pg (27.0-33.4); MEAN CORPUSCULAR HGB CONC 33.4 g/dL (32.0-36.0); MEAN CORPUSCULAR VOLUME 96 fl (80-97); MONOCYTES % (AUTO) 8.3 % (3-13); RED BLOOD COUNT 3.83 10^6/uL (4.35-5.55); SEGMENTED NEUTROPHILS % (AUTO) 51.4 % (42-78); WHITE BLOOD COUNT 4.6 10^3/uL (4.0-10.5)
[2017-06-30 15:46] LABS: ALANINE AMINOTRANSFERASE 20 U/L (21-72); ALBUMIN 3.6 g/dL (3.5-5.0); ALCOHOL 249 mg/dL (NONE DETECTED); ALKALINE PHOSPHATASE 164 U/L (38-126); ANION GAP 12 (5-19); BILIRUBIN,DIRECT 0.4 mg/dL (0.0-0.4); BILIRUBIN,TOTAL 0.4 mg/dL (0.2-1.3); BLOOD UREA NITROGEN 4 mg/dL (7-20); CALCIUM 9.5 mg/dL (8.4-10.2); CARBON DIOXIDE 24 mmol/L (22-30); CHLORIDE 106 mmol/L (98-107); GLUCOSE 102 mg/dL (75-110); POTASSIUM 3.8 mmol/L (3.6-5.0); SODIUM 141.5 mmol/L (137-145); TOTAL PROTEIN 7.1 g/dL (6.3-8.2)
[2017-06-30] MEDS ORDERED: CEFTRIAXONE RTU 1 GM/D5W 50 ML IV ONE (15:54)
--- NOTE | 2017-06-30 15:59 | ER Document Report ---
ED General - General Chief Complaint: ETOH Abuse Stated Complaint: POSSIBLE ETOH Time Seen by Provider: 06/30/17 14:36 Information source: Patient Notes: 62-year-old male with past medical history as recorded, who is currently homeless, with a history of chronic alcoholism, who presents today with the EMS complaint stating that he is intoxicated and wants to come to the emergency department because "there is A/C there". Patient currently denies headache, nausea, vomiting, chest pain, abdominal pain , weakness or numbness. He states he drank "a lot" of alcohol. Patient does not wish for detoxification or treatment at this time. Patient has had some chronic foot pain and erythema. He was seen here yesterday and prescribed Keflex which he states he could not afford. Patient states he does receive Medicaid in 5 days. TRAVEL OUTSIDE OF THE [place] IN LAST 30 DAYS: No - HPI Onset: Other - See above Onset/Duration: Gradual Quality of pain: No pain Severity: Mild Pain Level: 1 Associated symptoms: Other - See above Exacerbated by: Denies Relieved by: Denies Similar symptoms previously: No Recently seen / treated by doctor: No - Related Data Allergies/Adverse Reactions: Horse/Equine Containing Products [Horse/Equine Product Derivatives] Allergy ( Verified 06/30/17 14:14) Past Medical History - General Information source: Patient - Social History Smoking Status: Former Smoker Cigarette use (# per day): No Chew tobacco use (# tins/day): No Frequency of alcohol use: Heavy Drug Abuse: None Family History: Hyperlipidemia, Hypertension Patient has suicidal ideation: No Patient has homicidal ideation: No - Past Medical History Cardiac Medical History: Reports: Hx Hypercholesterolemia Renal/ Medical History: Denies: Hx Peritoneal Dialysis GI Medical History: Reports: Hx Hepatitis - c Musculoskeltal Medical History: Reports Hx Arthritis, Reports Hx Musculoskeletal Deformity, Reports Hx Musculoskeletal Trauma Psychiatric Medical History: Reports: Hx Schizophrenia Traumatic Medical History: Reports: Hx Fractures Infectious Medical History: Reports: Hx Hepatitis - c Past Surgical History: Reports: Hx Abdominal Surgery - hernia repair, Hx Inguinal Hernia, Hx Oral Surgery - Hair lip repaired, Hx Rectal Surgery - hemorrhoid surgery - Immunizations Immunizations up to date: Yes Hx Diphtheria, Pertussis, Tetanus Vaccination: Yes Review of Systems - Review of Systems Constitutional: denies: Fever EENT: denies: Eye discharge, Nose discharge Cardiovascular: denies: Chest pain Respiratory: denies: Cough, Short of breath Gastrointestinal: denies: Abdominal pain, Vomiting Musculoskeletal: denies: Leg swelling -: Yes All other systems reviewed and negative Physical Exam - Vital signs Vitals: Temp Pulse Resp BP Pulse Ox 98.6 F 110 H 20 100/62 97 06/30/17 14:14 06/30/17 14:14 06/30/17 14:14 06/30/17 14:14 06/30/17 14:14 Interpretation: Normal Notes: Reviewed vital signs and nursing note as charted by RN. CONSTITUTIONAL: Alert and oriented.. He does smell of alcohol but answers all questions appropriately HEAD: Normocephalic; atraumatic EYES: PERRL ENT: Normal nose; no rhinorrhea; moist mucous membranes NECK: Supple without meningismus; non-tender CARD: Regular rate and rhythm; no murmurs RESP: Normal chest excursion without splinting or tachypnea; breath sounds clear and equal bilaterally ABD/GI: Normal bowel sounds; non-distended; soft, nontender to palpation BACK: The back appears normal and is non-tender to palpation EXT: Normal ROM in all joints; patient has some minimal erythema with scattered nonfluctuant blisters to bilateral feet, left greater than right SKIN: See above NEURO: Moves all extremities equally; Motor and sensory function intact PSYCH: The patient's mood and manner are appropriate. Grooming and personal hygiene are appropriate. Course - Re-evaluation Re-evalutation: 06/30/17 16:08 Given the above history and physical examination I have ordered a repeat white blood cell count. Triage physician ordered a different way of laboratory values. Fluids have been provided. Patient had x-ray imaging of his feet yesterday and I do not believe that they need to be repeated today. He denies any increased redness or swelling. I had social work talk to the patient to provide homeless jail information. 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 We have explained to the patient the directions on how to get to this close location. I have provided a 1 g dose of Rocephin to hold him over until tomorrow morning. 06/30/17 16:41 EKG shows normal sinus rhythm, heart rate 84, normal axis, poor R-wave progression, inverted T-wave in lead aVL. Previous EKG shows a persistent flipped wave in aVL with possibly worsening R-wave progression today. 06/30/17 17:30 Liter of fluid has been given. Psychiatric services came to discuss the patient 's alcoholism but he was not interested in discussion. We have provided him paperwork about outpatient resources. 06/30/17 17:33 Lactic acid 1.7. - Vital Signs Vital signs: Temp Pulse Resp BP Pulse Ox 98.6 F 110 H 20 100/62 97 06/30/17 14:14 06/30/17 14:14 06/30/17 14:14 06/30/17 14:14 06/30/17 14:14 - Laboratory Result Diagrams: 06/30/17 14:55 06/30/17 14:55 Laboratory results interpreted by me: 06/30/17 06/30/17 14:55 14:55 RBC 3.83 L Hgb 12.3 L Hct 36.9 L RDW 17.0 H Basophils % 2.8 H BUN 4 L ALT 20 L Alkaline Phosphatase 164 H Salicylates < 1.0 L Acetaminophen < 10 L Discharge - Discharge Clinical Impression: Cellulitis of foot Alcohol intoxication Qualifiers: Complication of substance-induced condition: with unspecified complication Qualified Code(s): F10.929 - Alcohol use, unspecified with intoxication, unspecified Condition: Good Disposition: HOME, SELF-CARE Additional Instructions: Please make sure that she apple picking supervisor your prescription medication that we have paid for for you. Come back immediately any time that you would like treatment for your alcohol problem. Make sure you return immediately with any increased foot redness, irritation, swelling, pain, or vomiting. Please make sure that you keep your feet warm and dry and change socks regularly. Prescriptions: Cephalexin Monohydrate [Keflex 500 mg Capsule] 500 mg PO Q6H 7 Days #28 capsule
[2017-06-30 16:01] LABS: ASPARTATE AMINO TRANSFERASE 25 U/L (17-59)
--- NOTE | 2017-06-30 16:48 | PSYCHOLOGICAL NOTE ---
Psych Note - Psych Note Psych Note: Behavior health team was requested to reach out to patient to see if he would be interested in outpatient substance abuse treatment. Upon entering the room clinician asked if patient would be interested in treatment, patient responded "this is out of line." Patient denies having any substance abuse difficulties but does admit to drinking beer. Patient started to refuse resource list however agreed to accept the resource list to decide if he would like it at a later time. Patient is currently under the influence of a blood alcohol level of 249 Impression\\plan: Patient is considered psychiatrically clear for discharge. Patient denies having an issue with substance abuse and originally refused resource list; however, patient did consent to keeping resource list for later possible use.
[2017-06-30] MEDS ORDERED: NORMAL SALINE 1000 ML 1,000 ML IV ONE (17:21)
[2017-06-30 17:27] LABS: APPEARANCE,URINE CLEAR; BILIRUBIN,URINE NEGATIVE (NEGATIVE); GLUCOSE, URINE NEGATIVE (NEGATIVE); KETONES,URINE NEGATIVE (NEGATIVE); LEUKOCYTE ESTERASE,URINE NEGATIVE (NEGATIVE); NITRITE,URINE NEGATIVE (NEGATIVE); PROTEIN,URINE NEGATIVE (NEGATIVE); URINE SPECIFIC GRAVITY 1.003; UROBILINOGEN,URINE NEGATIVE mg/dL (<2.0)
[2017-06-30 17:47] LABS: URINE BARBITURATES SCREEN NEGATIVE; URINE METHADONE SCREEN NEGATIVE; URINE OPIATES LOW NEGATIVE; URINE PHENCYCLIDINE SCREEN NEGATIVE
[2017-06-30 19:08] VITALS: BP 133/69
--- NOTE | 2017-07-01 00:06 | EKG REPORT ---
SEVERITY:- ABNORMAL ECG - SINUS RHYTHM BORDERLINE R WAVE PROGRESSION, ANTERIOR LEADS NONSPECIFIC T ABNORMALITIES, LATERAL LEADS : Confirmed by: Manny Alicea 01-Jul-2017 00:05:27
== END 2017-07-01 01:37 | disposition home or self-care (01) ==
LOC: ER 13:55
DX: F10.229 Alcohol dependence with intoxication, unspecified (principal); S90.822A Blister (nonthermal), left foot, initial encounter; S90.821A Blister (nonthermal), right foot, initial encounter; L03.119 Cellulitis of unspecified part of limb; X58.XXXA Exposure to other specified factors, initial encounter; M79.673 Pain in unspecified foot; G89.29 Other chronic pain; Z59.0 Homelessness; Z87.891 Personal history of nicotine dependence
CPT/HCPCS: 93005; 99285; 96365; 36415; 80307 ×4; 83605; 85025; 80053; 81001; 93010; J7030; J0696

== ENCOUNTER 2017-07-04 08:03 | Emergency (ER) | payer MEDICARE, MEDICAID ==
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
--- NOTE | 2017-07-04 12:24 | ER Document Report ---
ED Psych Disorder / Suicide - General Chief Complaint: Knee Pain Stated Complaint: NEEDS GROUP HOME Time Seen by Provider: 07/04/17 08:39 Information source: Patient, [facility] Records Cannot obtain history due to: Intoxicated TRAVEL OUTSIDE OF THE [place] IN LAST 30 DAYS: No - HPI Patient complains to provider of: Other - leg pain; ETOH abuse Onset: Other Onset was: Cannot confirm Suicide Risk Factors: Lack of social support, Male, Substance abuse - daily ETOH , Other - social stressors Situational problems related to: Other - homeless Normal mood: Yes - happy/smiling Associated symptoms: Other - likely intoxicated Similar symptoms previously: Yes Recently seen / treated by doctor: Yes - 8 visits in June Notes: Patient is a 62 year old male who presents via EMS due to complaints of needing care home and leg pain. Patient has reportedly visited the ER for various complaints 8 times during the month of June. It should be noted most of these visits involved ETOH. Patient is homeless and referred for consultation to assist in linking and coordinating services. Patient today presents smiling and denies depression or any other psychiatric related complaints. Patient denies the desire to stop drinking. Patient denies wanting resources to pursue detox. Patient states he enjoys drinking and states it helps with his chronic leg pain. Patient reports housing would be helpful. Patient states he did serve in the [employer] in [place], [employer]; however, states he is not connected to the [facility]. He states he was honorably discharged and states the reason for honorable discharge was "I was rose m[place]." Patient states he has an adult son, aged 32 who resides in [place] with his exwife but do not maintain contact. Patient reports no other local supports. Patient states he would appreciate social resources. Patient is A&O. Mood was happy/normal with smiling affect. Patient denies suicidal/homicidal ideations, intent, plan or means. Patient denies A/V H; delusions not noted. Thought processes were organized. Conversational speech was slurred. Intellectual abilities were estimated to be under the influence. Attention and focus were poor. Insight, judgment, and impulse control were poor. 291.9 (F10.99) Unspecified Alcohol Use Disorder Patient's presenting symptoms are similar to that of an alcohol use disorder, and cause clinically significant distress in all domains of his life. At this time and in this setting, there is not enough information to make a more specific diagnosis. Patient is psychiatrically cleared for discharge. At this time, patient states he does not want to stop drinking. Patient was provided resources to assist him should he eventually chose to do so. At this time, patient's needs are social in nature. Patient was provided resources to assist him in meeting his social needs. I consulted with in regards to the care and management of this patient. - Related Data Allergies/Adverse Reactions: Horse/Equine Containing Products [Horse/Equine Product Derivatives] Allergy ( Verified 07/04/17 08:13) Past Medical History - General Information source: Patient - Social History Smoking Status: Unknown if Ever Smoked Chew tobacco use (# tins/day): No Frequency of alcohol use: Heavy Drug Abuse: None Family History: Hyperlipidemia, Hypertension Patient has suicidal ideation: No Patient has homicidal ideation: No - Past Medical History Cardiac Medical History: Reports: Hx Hypercholesterolemia Renal/ Medical History: Denies: Hx Peritoneal Dialysis GI Medical History: Reports: Hx Hepatitis - c Musculoskeltal Medical History: Reports Hx Arthritis, Reports Hx Musculoskeletal Deformity, Reports Hx Musculoskeletal Trauma Psychiatric Medical History: Reports: Hx Schizophrenia Traumatic Medical History: Reports: Hx Fractures Infectious Medical History: Reports: Hx Hepatitis - c Past Surgical History: Reports: Hx Abdominal Surgery - hernia repair, Hx Inguinal Hernia, Hx Oral Surgery - Hair lip repaired, Hx Rectal Surgery - hemorrhoid surgery - Immunizations Immunizations up to date: Yes Hx Diphtheria, Pertussis, Tetanus Vaccination: Yes Physical Exam - Vital signs Vitals: Temp Pulse Resp BP Pulse Ox 98.5 F 108 H 16 141/81 H 99 07/04/17 08:13 07/04/17 08:13 07/04/17 08:13 07/04/17 08:13 07/04/17 08:13 Course - Vital Signs Vital signs: Temp Pulse Resp BP Pulse Ox 98.5 F 108 H 16 141/81 H 99 07/04/17 08:13 07/04/17 08:13 07/04/17 08:13 07/04/17 08:13 07/04/17 08:13 Discharge - Discharge Clinical Impression: Homeless, Alcohol abuse Condition: Good Disposition: HOME, SELF-CARE Instructions: Normal Exam and Workup ([facility]) Additional Instructions: Acute Alcohol Intoxication Your evaluation revealed very high levels of alcohol. You can from drinking a large amount of alcohol rapidly! Further, there's the risk of falls , traffic accidents, and fights. A high portion (about 50 percent) of the serious injuries seen in hospital emergency rooms are caused by alcohol. Alcohol overdosage is usually due to an underlying emotional or psychiatric problem. You may benefit from counselling. If "binge" drinking is an ongoing problem for you, or if you drink ANY AMOUNT of alcohol EVERY day, you most likely have a tendency to alcoholism. You should avoid alcohol totally. We can refer you for treatment. Persons with alcohol problems are often also prone to other addictions -- you should discuss any use of medications or drugs with the doctor. You should be watched at home for the next several hours by someone who has not been drinking. Get extra fluids for the next 24 hours. Call the doctor if there is repeated vomiting, increasing headache, decreasing level of alertness, or any other worsening. Please consider detox to assist you in discontinuing alcohol use. Please follow up with Systems Support Specialist. Referrals: [facility] [Provider Group] - Follow up in 3-5 days
[2017-07-04 12:36] VITALS: BP 143/61
== END 2017-07-04 12:35 | disposition home or self-care (01) ==
LOC: ER 08:03
DX: F10.10 Alcohol abuse, uncomplicated (principal); M79.606 Pain in leg, unspecified; Z59.0 Homelessness
CPT/HCPCS: 99283

== ENCOUNTER 2017-07-08 17:43 | Emergency (ER) | payer MEDICARE, MEDICAID ==
[2017-07-08 17:54] VITALS: BP 150/77
--- NOTE | 2017-07-08 18:35 | ER Document Report ---
ED General - General Chief Complaint: Knee Pain Stated Complaint: KNEE PAIN Time Seen by Provider: 07/08/17 18:12 Mode of Arrival: Ambulatory Information source: Patient Notes: Patient is a 62 year old male who presents with bilateral knee pain that has been present for the past 10 minutes. He states he is homeless and often walks a lot during the day to and from the homeless custodial. He reports he did fall in the grass several weeks ago because he was unsteady and landed on his knees. He was seen recently for lower extremity infection and endorses that he finished all of his antibiotics as instructed. Endorses associated swelling but denies any fever, chills, redness, warmth, bruising. He has not taken anything for pain TRAVEL OUTSIDE OF THE [place] IN LAST 30 DAYS: No - Related Data Allergies/Adverse Reactions: Horse/Equine Containing Products [Horse/Equine Product Derivatives] Allergy ( Verified 07/08/17 18:17) Past Medical History - General Information source: Patient - Social History Smoking Status: Unknown if Ever Smoked Chew tobacco use (# tins/day): No Frequency of alcohol use: Heavy Drug Abuse: None Family History: Hyperlipidemia, Hypertension - Past Medical History Cardiac Medical History: Reports: Hx Hypercholesterolemia Renal/ Medical History: Denies: Hx Peritoneal Dialysis GI Medical History: Reports: Hx Hepatitis - c Musculoskeltal Medical History: Reports Hx Arthritis, Reports Hx Musculoskeletal Deformity, Reports Hx Musculoskeletal Trauma Psychiatric Medical History: Reports: Hx Schizophrenia Traumatic Medical History: Reports: Hx Fractures Infectious Medical History: Reports: Hx Hepatitis - c Past Surgical History: Reports: Hx Abdominal Surgery - hernia repair, Hx Inguinal Hernia, Hx Oral Surgery - Hair lip repaired, Hx Rectal Surgery - hemorrhoid surgery - Immunizations Immunizations up to date: Yes Hx Diphtheria, Pertussis, Tetanus Vaccination: Yes Review of Systems - Review of Systems Constitutional: No symptoms reported EENT: No symptoms reported Cardiovascular: No symptoms reported Respiratory: No symptoms reported Gastrointestinal: No symptoms reported Genitourinary: No symptoms reported Male Genitourinary: No symptoms reported Musculoskeletal: See HPI Skin: No symptoms reported Hematologic/Lymphatic: No symptoms reported Neurological/Psychological: No symptoms reported Physical Exam - Vital signs Vitals: Temp Pulse Resp BP Pulse Ox 97.8 F 100 19 150/77 H 100 07/08/17 17:52 07/08/17 17:52 07/08/17 17:52 07/08/17 17:52 07/08/17 17:52 Interpretation: Hypertensive - Notes Notes: PHYSICAL EXAM: CONSTITUTIONAL: Alert and oriented, well-appearing and in no acute distress. HENT: Normocephalic, atraumatic. Moist mucous membranes. EYES: Pupils equal round and reactive to light, EOM intact. Sclera anicteric, conjunctiva are normal. No entrapment. NECK: supple without lymphadenopathy. ROM intact. HEART: Regular rate and rhythm without murmurs. LUNGS: CTAB and equal. No wheezes, rales or rhonchi. EXTREMITIES: bilateral knees with tenderness to palpation over tibial plateau and edema with no warmth, erythema, ecchymosis or deformity. Normal range of motion, no pitting edema. No cyanosis. Cap Refill <3 seconds. Patient noted by nursing staff to ambulate with limp. NEURO: Cranial nerves grossly intact. Normal sensory/motor exams. PSYCH: Normal mood, normal affect. SKIN: Warm and dry. Normal turgor. Left foot between toes noted to be erythematous plaques consistent with tinea pedis. Course - Re-evaluation Re-evalutation: 07/08/17 16:35 Patient seen and examined. No evidence of cellulitis, septic arthritis but will obtain xrays and will give oral NSAID here. Concern for rash to left toes consistent with tinea pedis. 07/08/17 19:46 Reviewed imaging studies - no obvious fracture or dislocation or evidence of effusion. patient appears more comfortable after pain medication. Will give script for anti-fungal and NSAID. At this time, will discharge with return precautions and follow-up recommendations. Verbal discharge instructions given at the bedside and opportunity for questions given. Medication warnings reviewed. Patient is in agreement with this plan and has verbalized understanding of return precautions and the need for primary care follow-up in the next 24-72 hours. - Vital Signs Vital signs: Temp Pulse Resp BP Pulse Ox 97.8 F 100 19 150/77 H 100 07/08/17 17:52 07/08/17 17:52 07/08/17 17:52 07/08/17 17:52 07/08/17 17:52 - Diagnostic Test Radiology reviewed: Image reviewed, Reports reviewed Discharge - Discharge Clinical Impression: Arthritis Tinea pedis Qualifiers: Laterality: left Qualified Code(s): B35.3 - Tinea pedis Condition: Stable Disposition: HOME, SELF-CARE Prescriptions: Ketoconazole/Hydrocortisone [Xolegel Corepak Gel] 67.7 gm TP BID #2 gel..gm. Naproxen [Naprosyn 250 mg Tablet] 500 mg PO DAILY PRN #14 tablet PRN Reason: Forms: Elevated Blood Pressure Referrals: MARV FORDE MD [Primary Care Provider] - Follow up in 1 week
[2017-07-08] MEDS ORDERED: IBUPROFEN 600 MG TABLET PO ONE (18:56)
--- NOTE | 2017-07-08 19:10 | RADIOLOGY REPORT (SQ) ---
EXAM DESCRIPTION: KNEE LEFT 4 VIEW; KNEE RIGHT 4 VIEWS COMPLETED DATE/TIME: 07/08/2017 6:59 pm REASON FOR STUDY: pain, swelling COMPARISON: None. FINDINGS: Four views right knee: No fracture or bone lesion. Maintained joints. Mild suprapatella r soft tissue swelling but no suggestion of significant effusion. Four views left knee: No significant bone, joint or soft tissue abnormality. IMPRESSION: As above. TECHNICAL DOCUMENTATION: JOB ID: [id number]
== END 2017-07-08 20:05 | disposition home or self-care (01) ==
LOC: ER 17:43
DX: M19.90 Unspecified osteoarthritis, unspecified site (principal); B35.3 Tinea pedis; M25.562 Pain in left knee; M25.561 Pain in right knee; E78.00 Pure hypercholesterolemia, unspecified; Z86.19 Personal history of other infectious and parasitic diseases
CPT/HCPCS: 99283; 73562; 73564; A9270

== ENCOUNTER 2017-07-16 06:57 | Emergency (ER) | payer MEDICARE, MEDICAID ==
[2017-07-16 07:07] VITALS: BP 110/85
--- NOTE | 2017-07-16 07:13 | ER Document Report ---
HPI - HPI Notes: Patient is a 62-year-old male with no significant past medical history who presents the ED complaining of chronic bilateral knee pain 1 year or more. Patient 8 days ago is homeless. Patient was evaluated for the same complaint and was given ibuprofen which seemed to help. Patient has tried some over-the- counter meds with minimal relief. He has been on able to use ice/heat while on the street. Patient states that he was told he has arthritis in his knees. Patient still able to ambulate but it continues to be sore. The pain does not radiate. He has not noticed any redness or warmth to his knees. Denies any drug allergies. Denies any headache, fever, URI, sore throat, chest pain, palpitations, syncope, cough, shortness of breath, wheeze, dyspnea, abdominal pain, nausea/vomiting/diarrhea, urinary retention, dysuria, hematuria, efraín k pain, numbness/tingling, muscle paralysis/weakness, or rash. - ROS Notes: REVIEW OF SYSTEMS: CONSTITUTIONAL : Denies fever, chills, or sweats. Denies recent illness. EENT: Denies eye, ear, throat, or mouth pain or symptoms. Denies nasal or sinus congestion or discharge. Denies throat, tongue, or mouth swelling or difficulty swallowing. CARDIOVASCULAR: Denies chest pain. Denies palpitations or racing or irregular heart beat. Denies ankle edema. RESPIRATORY: Denies cough, cold, or chest congestion. Denies shortness of breath, difficulty breathing, or wheezing. GASTROINTESTINAL: Denies abdominal pain or distention. Denies nausea, vomiting , or diarrhea. Denies blood in vomitus, stools, or per rectum. Denies black, tarry stools. Denies constipation. GENITOURINARY: Denies difficulty urinating, painful urination, burning, frequency, blood in urine, or discharge. MUSCULOSKELETAL: See HPI SKIN: Denies rash, lesions or sores. NEUROLOGICAL: Denies confusion or altered mental status. Denies passing out or loss of consciousness. Denies dizziness or lightheadedness. Denies headache. Denies weakness or paralysis or loss of use of either side. Denies problems with gait or speech. Denies sensory loss, numbness, or tingling. ALL OTHER SYSTEMS REVIEWED AND NEGATIVE. Dictation was performed using [employer] recognition software Past Medical History - Social History Smoking Status: Unknown if Ever Smoked Family History: Hyperlipidemia, Hypertension - Past Medical History Cardiac Medical History: Reports: Hx Hypercholesterolemia Renal/ Medical History: Denies: Hx Peritoneal Dialysis GI Medical History: Reports: Hx Hepatitis - c Musculoskeltal Medical History: Reports Hx Arthritis, Reports Hx Musculoskeletal Deformity, Reports Hx Musculoskeletal Trauma Psychiatric Medical History: Reports: Hx Schizophrenia Traumatic Medical History: Reports: Hx Fractures Infectious Medical History: Reports: Hx Hepatitis - c Past Surgical History: Reports: Hx Abdominal Surgery - hernia repair, Hx Inguinal Hernia, Hx Oral Surgery - Hair lip repaired, Hx Rectal Surgery - hemorrhoid surgery - Immunizations Immunizations up to date: Yes Hx Diphtheria, Pertussis, Tetanus Vaccination: Yes Vertical Provider Document - CONSTITUTIONAL Agree With Documented VS: Yes Notes: PHYSICAL EXAMINATION: GENERAL: Well-appearing, well-nourished and in no acute distress. Vitals: HR on apical during exam 88. LUNGS: Breath sounds clear to auscultation bilaterally and equal. No wheezes rales or rhonchi. HEART: Regular rate and rhythm without murmurs, rubs, gallops. Musculoskeletal: b/l knees: FROM to passive/active. Strength 5+/5. + arthritic changes noted visually. + mild grinding with flexion/ext. No obvious effusion, erythema, warmth. Non-tender to palpation. Natanael neg. N/V intact distal. Extremities: No cyanosis, clubbing, or edema b/l. Peripheral pulses 2+. Capillary refill less than 3 seconds. NEUROLOGICAL: Cranial nerves grossly intact. Normal speech. Normal sensory, motor exams PSYCH: Normal mood, normal affect. SKIN: Warm, Dry, normal turgor, no rashes or lesions noted. - INFECTION CONTROL TRAVEL OUTSIDE OF THE [place] IN LAST 30 DAYS: No Course - Re-evaluation Re-evalutation: 07/16/17 07:23 Patient is an afebrile, well-hydrated, 62-year-old male who presents the ED with bilateral knee pain, chronic, without any acute changes. Vitals are stable. PE otherwise unremarkable. No imaging warranted today. Low suspicion/ risk for any septic joint, sepsis, meningitis, neurovascular compromise, or fracture. Patient is aware that his condition can change from initial presentation and he needs to monitor symptoms closely and seek medical attention if any acute changes. Tylenol/Motrin given p.o. today. Sent the patient home with 2 ice packs that he can use at a later time. Conservative measures otherwise for symptoms. Recheck with your PCM in 2-3 days. Consider consult with orthopedics/physical therapy if able. Return to the ED with any worsening/concerning symptoms otherwise as reviewed in discharge. Patient is in agreement. - Vital Signs Vital signs: Temp Pulse Resp BP Pulse Ox 98 F 117 H 16 110/85 07/16/17 07:01 07/16/17 07:01 07/16/17 07:01 07/16/17 07:01 Discharge - Discharge Clinical Impression: Chronic pain of both knees Condition: Stable Disposition: HOME, SELF-CARE Instructions: Ice & Elevation ([facility]), Knee Exercise Program ([facility]) Additional Instructions: Rest, Ice, Compression, Elevation Tylenol/ibuprofen as needed Light stretches daily Strength exercises as able Moist heat and massage may help F/u with your PCP in 2-3 days for a recheck Consider consult(s) with Orthopedics/physical therapy for ongoing/worsening symptoms Return to the ED with any worsening symptoms and/or development of fever, headache, chest pain, palpitations, syncope, shortness of breath, trouble breathing, abdominal pain, n/v/d, muscle weakness/paralysis, numbness/tingling, swelling, redness, or other worsening symptoms that are concerning to you. Referrals: [facility] [Provider Group] - Follow up as needed [facility] [Provider Group] - Follow up as needed
[2017-07-16] MEDS ORDERED: ACETAMINOPHEN 325 MG TABLET PO ONE (07:19)
[2017-07-16] MEDS ORDERED: IBUPROFEN 600 MG TABLET PO ONE (07:19)
== END 2017-07-16 07:48 | disposition home or self-care (01) ==
LOC: ER 06:57
DX: G89.29 Other chronic pain (principal); M25.562 Pain in left knee; M25.561 Pain in right knee; E78.00 Pure hypercholesterolemia, unspecified; Z86.19 Personal history of other infectious and parasitic diseases; Z59.0 Homelessness
CPT/HCPCS: 99283; A9270 ×2

== ENCOUNTER 2017-08-07 13:00 | Emergency (ER) | payer MEDICARE, OTHER ==
--- NOTE | 2017-08-07 15:21 | ER Document Report ---
HPI - HPI Patient complains to provider of: Bilateral knee pain Onset: Other - 10 months Onset/Duration: Persistent Quality of pain: Achy Pain Level: 3 Context: Patient complains of bilateral knee pain for the past 10 months. Patient denies any new injury. Patient denies any change in his symptoms. Patient denies any fever. Associated Symptoms: Other - Bilateral knee pain. denies: Fever Exacerbated by: Movement, Walking Relieved by: Denies Similar symptoms previously: Yes Recently seen / treated by doctor: No - ROS ROS below otherwise negative: Yes Systems Reviewed and Negative: Yes All other systems reviewed and negative - CONSTITUTIONAL Constitutional: DENIES: Fever, Chills - RESPIRATORY Respiratory: DENIES: Coughing - GASTROINTESTINAL Gastrointestinal: DENIES: Nausea - MUSCULOSKELETAL Musculoskeletal: REPORTS: Extremity pain. DENIES: Back Pain - DERM Skin Color: Normal Skin Problems: None Past Medical History - General Information source: Patient - Social History Smoking Status: Never Smoker Frequency of alcohol use: Heavy - Daily use Drug Abuse: None Occupation: None Family History: Hyperlipidemia, Hypertension Patient has suicidal ideation: No Patient has homicidal ideation: No - Past Medical History Cardiac Medical History: Reports: Hx Hypercholesterolemia Renal/ Medical History: Denies: Hx Peritoneal Dialysis GI Medical History: Reports: Hx Hepatitis - c Musculoskeltal Medical History: Reports Hx Arthritis, Reports Hx Musculoskeletal Deformity, Reports Hx Musculoskeletal Trauma Psychiatric Medical History: Reports: Hx Schizophrenia Traumatic Medical History: Reports: Hx Fractures Infectious Medical History: Reports: Hx Hepatitis - c Past Surgical History: Reports: Hx Abdominal Surgery - hernia repair, Hx Inguinal Hernia, Hx Oral Surgery - Hair lip repaired, Hx Rectal Surgery - hemorrhoid surgery - Immunizations Immunizations up to date: Yes Hx Diphtheria, Pertussis, Tetanus Vaccination: Yes Vertical Provider Document - CONSTITUTIONAL Agree With Documented VS: Yes Exam Limitations: No Limitations General Appearance: WD/WN, No Apparent Distress - INFECTION CONTROL TRAVEL OUTSIDE OF THE [place] IN LAST 30 DAYS: No - HEENT HEENT: Atraumatic, Normocephalic - NECK Neck: Normal Inspection, Supple - RESPIRATORY Respiratory: Breath Sounds Normal, No Respiratory Distress - CARDIOVASCULAR Cardiovascular: Regular Rhythm, No Murmur, Tachycardia Pulses: Decreased: Posterior tibial, Dorsalis pedis Notes: Peripheral pulses obtained with bedside Doppler - MUSCULOSKELETAL/EXTREMETIES Musculoskeletal/Extremeties: MAEW, FROM, Tender - Generalized bilateral knees, patient with chronic changes consistent with history of osteoarthritis, no concern for septic joint - NEURO Level of Consciousness: Awake, Alert, Appropriate Motor/Sensory: No Motor Deficit - DERM Integumentary: Warm, Dry Course - Re-evaluation Re-evalutation: 08/07/17 14:50 Dr. Perez to bedside for examination, recommends treating patient for osteoarthritis and having him follow-up with vascular surgeon for recheck. Discharge - Discharge Clinical Impression: Arthritis, Chronic pain of both knees Condition: Stable Disposition: HOME, SELF-CARE Instructions: Arthritis ([facility]), Peripheral Vascular Disease ([facility]), Warm Packs ( [facility]) Additional Instructions: Return immediately for any new or worsening symptoms Followup with your primary care provider, call tomorrow to make a followup appointment Stop drinking alcohol Prescriptions: Capsaicin 1 applic TP TID PRN #60 cream.gm. PRN Reason: Naproxen [Naprosyn 250 Nmg Tablet] 1 tab PO BID #14 tablet Referrals: MARV FORDE MD [ACTIVE STAFF] - Follow up tomorrow SABINA TREVINO MD [ACTIVE STAFF] - Follow up in 3-5 days
[2017-08-07] MEDS ORDERED: IBUPROFEN 600 MG TABLET PO ONE (15:33)
[2017-08-07 15:53] VITALS: BP 163/91
== END 2017-08-07 15:52 | disposition home or self-care (01) ==
LOC: ER 13:00
DX: M17.0 Bilateral primary osteoarthritis of knee (principal); M25.561 Pain in right knee; M25.562 Pain in left knee; G89.29 Other chronic pain
CPT/HCPCS: 99283; A9270

== ENCOUNTER 2018-01-31 03:45 | Emergency (ER) | payer MEDICARE, MEDICAID ==
[2018-01-31 08:40] LABS: ABSOLUTE EOSINOPHILS # (AUTO) 0.3 10^3/uL (0.0-0.6); ABSOLUTE LYMPHOCYTES (AUTO) 1.1 10^3/uL (0.5-4.7); ABSOLUTE MONOCYTES (AUTO) 0.8 10^3/uL (0.1-1.4); ABSOLUTE NEUT (AUTO) 4.5 10^3/uL (1.7-8.2); BASOPHILS % (AUTO) 0.6 % (0-2); EOSINOPHILS % (AUTO) 4.1 % (0-6); HEMATOCRIT 40.1 % (37.9-51.0); HEMOGLOBIN 13.6 g/dL (13.5-17.0); LYMPHOCYTES % (AUTO) 16.9 % (13-45); MEAN CORPUSCULAR HEMOGLOBIN 34.8 pg (27.0-33.4); MEAN CORPUSCULAR VOLUME 102 fl (80-97); MONOCYTES % (AUTO) 11.5 % (3-13); PLATELET COUNT 176 10^3/uL (150-450); RED BLOOD COUNT 3.91 10^6/uL (4.35-5.55); RED CELL DISTRIBUTION WIDTH 12.8 % (11.5-14.0); SEGMENTED NEUTROPHILS % (AUTO) 66.9 % (42-78); TOTAL CELLS COUNTED % (AUTO) 100 %; WHITE BLOOD COUNT 6.7 10^3/uL (4.0-10.5)
[2018-01-31 08:59] LABS: ALANINE AMINOTRANSFERASE 33 U/L (21-72); ALBUMIN 4.6 g/dL (3.5-5.0); ALKALINE PHOSPHATASE 106 U/L (38-126); ANION GAP 9 (5-19); ASPARTATE AMINO TRANSFERASE 36 U/L (17-59); BILIRUBIN,DIRECT 0.4 mg/dL (0.0-0.4); BILIRUBIN,TOTAL 1.3 mg/dL (0.2-1.3); BLOOD UREA NITROGEN 14 mg/dL (7-20); CARBON DIOXIDE 27 mmol/L (22-30); CHLORIDE 100 mmol/L (98-107); GLUCOSE 82 mg/dL (75-110); POTASSIUM 4.4 mmol/L (3.6-5.0); SODIUM 135.5 mmol/L (137-145); TOTAL PROTEIN 7.4 g/dL (6.3-8.2)
--- NOTE | 2018-01-31 10:00 | ER Document Report ---
ED Extremity Problem, Lower - General Chief Complaint: Leg Pain Stated Complaint: LEG PAIN Time Seen by Provider: 01/31/18 07:50 Notes: History of present illness-62 years old male who is homeless, walking around in the cold, presents with lower extremity pain and redness. He states he stays in a hotel some days of the month but most of the time he spent the time in the price. And drink alcoholic drinks. Denies any fever chills or other constitutional symptoms REVIEW OF SYSTEMS: CONSTITUTIONAL : Denies fever, chills, or sweats. Denies recent illness. EENT: Denies eye, ear, throat, or mouth pain or symptoms. Denies nasal or sinus congestion or discharge. Denies throat, tongue, or mouth swelling or difficulty swallowing. CARDIOVASCULAR: Denies chest pain. Denies palpitations or racing or irregular heart beat. Denies ankle edema. RESPIRATORY: Denies cough, cold, or chest congestion. Denies shortness of breath, difficulty breathing, or wheezing. GASTROINTESTINAL: Denies abdominal pain or distention. Denies nausea, vomiting , or diarrhea. Denies blood in vomitus, stools, or per rectum. Denies black, tarry stools. Denies constipation. GENITOURINARY: Denies difficulty urinating, painful urination, burning, frequency, blood in urine, or discharge. MUSCULOSKELETAL: Denies back or neck pain or stiffness. Denies joint pain or swelling. SKIN: Denies rash, lesions or sores. HEMATOLOGIC : Denies easy bruising or bleeding. LYMPHATIC: Denies swollen, enlarged glands. NEUROLOGICAL: Denies confusion or altered mental status. Denies passing out or loss of consciousness. Denies dizziness or lightheadedness. Denies headache. Denies weakness or paralysis or loss of use of either side. Denies problems with gait or speech. Denies sensory loss, numbness, or tingling. Denies seizures. PSYCHIATRIC: Denies anxiety or stress. Denies depression, suicidal ideation, or homicidal ideation. ALL OTHER SYSTEMS REVIEWED AND NEGATIVE. Dictation was performed using [employer] voice recognition software PHYSICAL EXAMINATION: GENERAL: I unhygienic HEAD: Atraumatic, normocephalic. EYES: Pupils equal round and reactive to light, extraocular movements intact, sclera anicteric, conjunctiva are normal. ENT: Nares patent, oropharynx clear without exudates. Moist mucous membranes. NECK: Normal range of motion, supple without lymphadenopathy LUNGS: Breath sounds clear to auscultation bilaterally and equal. No wheezes rales or rhonchi. HEART: Regular rate and rhythm without murmurs ABDOMEN: Soft, nontender, nondistended abdomen. No guarding, no rebound. No masses appreciated. Musculoskeletal: Normal range of motion, no pitting or edema. No cyanosis. NEUROLOGICAL: Cranial nerves grossly intact. Normal speech, normal gait. Normal sensory, motor exams PSYCH: Normal mood, normal affect. SKIN: Warm, Dry, normal turgor, no rashes or lesions noted. TRAVEL OUTSIDE OF THE [place] IN LAST 30 DAYS: No - Related Data Allergies/Adverse Reactions: Horse/Equine Containing Products [Horse/Equine Product Derivatives] Allergy ( Verified 01/31/18 04:24) Past Medical History - Social History Smoking Status: Unknown if Ever Smoked Family History: Hyperlipidemia, Hypertension Patient has suicidal ideation: No Patient has homicidal ideation: No - Past Medical History Cardiac Medical History: Reports: Hx Hypercholesterolemia Renal/ Medical History: Denies: Hx Peritoneal Dialysis GI Medical History: Reports: Hx Hepatitis - c Musculoskeltal Medical History: Reports Hx Arthritis, Reports Hx Musculoskeletal Deformity, Reports Hx Musculoskeletal Trauma Psychiatric Medical History: Reports: Hx Schizophrenia Traumatic Medical History: Reports: Hx Fractures Infectious Medical History: Reports: Hx Hepatitis - c Past Surgical History: Reports: Hx Abdominal Surgery - hernia repair, Hx Inguinal Hernia, Hx Oral Surgery - Hair lip repaired, Hx Rectal Surgery - hemorrhoid surgery - Immunizations Immunizations up to date: Yes Hx Diphtheria, Pertussis, Tetanus Vaccination: Yes Review of Systems - Review of Systems Notes: as per HC Physical Exam - Vital signs Vitals: Temp Pulse Resp BP Pulse Ox 98.2 F 104 H 18 143/75 H 96 01/31/18 04:22 01/31/18 04:22 01/31/18 04:22 01/31/18 04:22 01/31/18 04:22 Course - Re-evaluation Re-evalutation: 01/31/18 10:10 Evaluated by social service for placement - Vital Signs Vital signs: Temp Pulse Resp BP Pulse Ox 98.2 F 104 H 18 143/75 H 96 01/31/18 04:22 01/31/18 04:22 01/31/18 04:22 01/31/18 04:22 01/31/18 04:22 - Laboratory Result Diagrams: 01/31/18 08:26 01/31/18 08:26 Laboratory results interpreted by me: 01/31/18 01/31/18 08:26 08:26 RBC 3.91 L MCV 102 H MCH 34.8 H Sodium 135.5 L Discharge - Discharge Clinical Impression: Cellulitis of both lower extremities Condition: Fair Disposition: HOME, SELF-CARE Instructions: Cellulitis ([facility]) Prescriptions: Cephalexin [Keflex] 500 mg PO TID #30 capsule
[2018-01-31] MEDS ORDERED: CEPHALEXIN 500 MG CAPSULE PO ONE (10:14)
[2018-01-31 10:28] VITALS: BP 133/82
== END 2018-01-31 10:45 | disposition home or self-care (01) ==
LOC: ER 03:45
DX: L03.116 Cellulitis of left lower limb (principal); L03.115 Cellulitis of right lower limb; M79.604 Pain in right leg; M79.605 Pain in left leg; Z59.0 Homelessness
CPT/HCPCS: 99283; 36415; 87040; 85025; 80053; A9270

== ENCOUNTER 2018-02-03 20:32 | Emergency (ER) | payer MEDICARE, MEDICAID ==
[2018-02-03 20:41] VITALS: BP 119/87
[2018-02-03] MEDS ORDERED: KETOROLAC TROMETHAMINE INJ/PF 30 MG/1 ML SDV IM ONE (21:10)
--- NOTE | 2018-02-03 21:17 | ER Document Report ---
HPI - HPI Pain Level: 4 Notes: Patient is a 62-year-old male who presents to the ED complaining of bilateral knee pain that has been bothering him over the last several months. Patient states that he is homeless and that he ambulates everywhere he has to go. Patient states that he does have soreness in his knees that does not radiate. No recent injury. Patient was on Motrin but has not been on it in the last few days. Patient states that it also is cold outside and he tries to walk more so at night to himself warm. patient states that he is otherwise eating and drinking without difficulties. He is urinating normally and having normal bowel movements. No other concerns or complaints at this time. Denies any headache, fever, neck pain, URI, sore throat, chest pain, palpitations, syncope , cough, shortness of breath, wheeze, dyspnea, abdominal pain, nausea/vomiting/ diarrhea, urinary retention, dysuria, hematuria, loss of control of bowel or bladder, numbness/tingling, saddle anesthesia, muscle paralysis/weakness, or rash. - ROS Systems Reviewed and Negative: Yes All other systems reviewed and negative - MUSCULOSKELETAL Musculoskeletal: REPORTS: Extremity pain Past Medical History - Social History Smoking Status: Current Every Day Smoker Chew tobacco use (# tins/day): No Frequency of alcohol use: Heavy Drug Abuse: None Family History: Hyperlipidemia, Hypertension Patient has suicidal ideation: No Patient has homicidal ideation: No - Past Medical History Cardiac Medical History: Reports: Hx Hypercholesterolemia Renal/ Medical History: Denies: Hx Peritoneal Dialysis GI Medical History: Reports: Hx Hepatitis - c Musculoskeltal Medical History: Reports Hx Arthritis, Reports Hx Musculoskeletal Deformity, Reports Hx Musculoskeletal Trauma Psychiatric Medical History: Reports: Hx Schizophrenia Traumatic Medical History: Reports: Hx Fractures Infectious Medical History: Reports: Hx Hepatitis - c Past Surgical History: Reports: Hx Abdominal Surgery - hernia repair, Hx Inguinal Hernia, Hx Oral Surgery - Hair lip repaired, Hx Rectal Surgery - hemorrhoid surgery - Immunizations Immunizations up to date: Yes Hx Diphtheria, Pertussis, Tetanus Vaccination: Yes Vertical Provider Document - CONSTITUTIONAL Agree With Documented VS: Yes Notes: PHYSICAL EXAMINATION: GENERAL: Well-appearing, well-nourished and in no acute distress. LUNGS: Breath sounds clear to auscultation bilaterally and equal. No wheezes rales or rhonchi. HEART: Regular rate and rhythm without murmurs, rubs, gallops. Musculoskeletal: Knees b/l: FROM to passive/active. Strength 5+/5. Non-tender. No obvious swelling, deformity, ecchymosis, or warmth noted. Pt able to weight-bear w/o difficulty. Extremities: No cyanosis, clubbing, or edema b/l. Peripheral pulses 2+. Capillary refill less than 3 seconds. NEUROLOGICAL: Normal speech, normal gait. Normal sensory, motor exams PSYCH: Normal mood, normal affect. SKIN: Warm, Dry, normal turgor, no rashes or lesions noted. - INFECTION CONTROL TRAVEL OUTSIDE OF THE [place] IN LAST 30 DAYS: No Course - Re-evaluation Re-evalutation: 02/03/18 21:15 Patient is an afebrile, well-hydrated, 62-year-old male who presents to the ED with chronic bilateral knee pain, suspect arthritic/inflammatory. Vitals are acceptable. PE is otherwise unremarkable for any neurovascular compress, obvious tendon/ligament rupture, obvious fracture/dislocation, DVT. No labs or imaging warranted at this time based on H&P. Toradol is given IM today. Recommend conservative measures for symptoms. Recheck with your PCM in 3-5 days. Consider consult orthopedics. Return to the ED with any worsening/ concerning symptoms otherwise as reviewed discharge. Patient is in agreement. - Vital Signs Vital signs: Temp Pulse Resp BP Pulse Ox 98.6 F 106 H 20 119/87 H 98 02/03/18 20:38 02/03/18 20:38 02/03/18 20:38 02/03/18 20:38 02/03/18 20:38 Discharge - Discharge Clinical Impression: Bilateral knee pain Qualifiers: Chronicity: chronic Qualified Code(s): M25.561 - Pain in right knee; M25.562 - Pain in left knee; M25.562 - Pain in left knee; G89.29 - Other chronic pain; G89.29 - Other chronic pain Condition: Stable Disposition: HOME, SELF-CARE Additional Instructions: Rest, Ice, Compression, Elevation Tylenol/ibuprofen as needed Light stretches daily Strength exercises as able Moist heat and massage may help F/u with your PCP in 3-5 days for a recheck Consider consult(s) with Orthopedics/physical therapy for ongoing/worsening symptoms Return to the ED with any worsening symptoms and/or development of fever, headache, chest pain, palpitations, syncope, shortness of breath, trouble breathing, abdominal pain, n/v/d, muscle weakness/paralysis, numbness/tingling, swelling, redness, or other worsening symptoms that are concerning to you. Forms: Elevated Blood Pressure Referrals: [facility] [Provider Group] - Follow up as needed [facility] [Provider Group] - Follow up as needed
== END 2018-02-03 21:43 | disposition home or self-care (01) ==
LOC: ER 20:32
DX: G89.29 Other chronic pain (principal); M25.561 Pain in right knee; M25.562 Pain in left knee; Z59.0 Homelessness; F17.200 Nicotine dependence, unspecified, uncomplicated
CPT/HCPCS: 99283

== ENCOUNTER 2018-02-24 03:19 | Emergency (ER) | payer MEDICARE, MEDICAID ==
--- NOTE | 2018-02-24 03:41 | ER Document Report ---
HPI - HPI Notes: Patient is a 62-year-old male who presents to the ED complaining of bilateral knee pain that has been bothering him for over a year, but pain increases when it is cold outside. Patient is homeless and he ambulates everywhere he has to go. Patient states that he does have soreness in his knees that does not radiate. No recent injury. Pt states that he understands he needs to use ice, heat, and elevation when his knee pain acts up. Pt states that it is cold outside tonight so he called [employer] who called EMS to bring him here for evaluation. Pt states that he drank 2-24 ounce beers throughout the day today. Patient states that he is otherwise eating and drinking without difficulties. He is urinating normally and having normal bowel movements. No other concerns or complaints at this time. Denies any headache, fever, neck pain, URI , sore throat, chest pain, palpitations, syncope, cough, shortness of breath, wheeze, dyspnea, abdominal pain, nausea/vomiting/diarrhea, urinary retention, dysuria, hematuria, loss of control of bowel or bladder, numbness/tingling, saddle anesthesia, muscle paralysis/weakness, or rash. - ROS Systems Reviewed and Negative: Yes All other systems reviewed and negative Past Medical History - Social History Smoking Status: Unknown if Ever Smoked Family History: Hyperlipidemia, Hypertension - Past Medical History Cardiac Medical History: Reports: Hx Hypercholesterolemia Renal/ Medical History: Denies: Hx Peritoneal Dialysis GI Medical History: Reports: Hx Hepatitis - c Musculoskeltal Medical History: Reports Hx Arthritis, Reports Hx Musculoskeletal Deformity, Reports Hx Musculoskeletal Trauma Psychiatric Medical History: Reports: Hx Schizophrenia Traumatic Medical History: Reports: Hx Fractures Infectious Medical History: Reports: Hx Hepatitis - c Past Surgical History: Reports: Hx Abdominal Surgery - hernia repair, Hx Inguinal Hernia, Hx Oral Surgery - Hair lip repaired, Hx Rectal Surgery - hemorrhoid surgery - Immunizations Immunizations up to date: Yes Hx Diphtheria, Pertussis, Tetanus Vaccination: Yes Vertical Provider Document - CONSTITUTIONAL Agree With Documented VS: Yes Notes: PHYSICAL EXAMINATION: GENERAL: Well-appearing, well-nourished and in no acute distress. A&Ox3. Answers questions appropriately. I ambulated the patient up and down the hallway w/o any imbalance, unsteadiness, or other difficulties. Eyes: PERRLA. EOMI. LUNGS: Breath sounds clear to auscultation bilaterally and equal. No wheezes rales or rhonchi. HEART: Regular rate and rhythm without murmurs, rubs, gallops. Musculoskeletal: Knees b/l: FROM to passive/active. Strength 5+/5. Non-tender. No obvious swelling, deformity, ecchymosis, or warmth noted. Pt able to weight-bear w/o difficulty. + arthritic changes noted with palpation of his knees. N/V intact distal. Natanael neg b/l. Extremities: No cyanosis, clubbing, or edema b/l. Peripheral pulses 2+. Capillary refill less than 3 seconds. NEUROLOGICAL: Cranial nerves 2-12 grossly intact. Normal speech, normal gait. Normal sensory, motor exams. rhomberg negative. PSYCH: Normal mood, normal affect. SKIN: Warm, Dry, normal turgor, no rashes or lesions noted. - INFECTION CONTROL TRAVEL OUTSIDE OF THE [place] IN LAST 30 DAYS: No Course - Re-evaluation Re-evalutation: 02/24/18 03:57 Patient is an afebrile, well-hydrated, 62-year-old male who presents to the ED with complaint of bilateral knee pain, chronic. I suspect that this is arthritic change and that he wanted to come the emergency department tonight because it is colder out this evening. Vitals are acceptable. PE is otherwise unremarkable for any neurovascular compromise, obvious tendon/ligament rupture, obvious fracture/dislocation, septic joint. 2 heat packs were given today. Patient declined any Tylenol or Motrin. Patient is able to converse with me without any slurring or other difficulties. Cranial nerves are grossly intact, Romberg negative, patient's gait is ataxic but stable. As noted in my exam, I was able to ambulate the patient up and down the hallway without any imbalance or unsteadiness noted. Patient verbalized understanding that he knows where he is at and is aware of the risk of alcohol consumption. Patient is currently able to make clear decisive decisions for himself. No other labs or imaging warranted at this time based on H&P. Pt is tolerating PO intake. Recheck with your PCM in 3-5 days. Return to the ED with any worsening/concerning symptoms otherwise as reviewed discharge. Patient is in agreement. Reviewed with Dr. Castañeda who is in agreement with dispo/plan. Discharge - Discharge Clinical Impression: Chronic knee pain Qualifiers: Laterality: bilateral Qualified Code(s): M25.561 - Pain in right knee; M25.562 - Pain in left knee; M25.562 - Pain in left knee; G89.29 - Other chronic pain; G89.29 - Other chronic pain Condition: Stable Disposition: HOME, SELF-CARE Instructions: Knee Exercise Program ([facility]), Chronic Alcoholism ([facility]) Additional Instructions: Rest, Ice, Compression, Elevation Tylenol/ibuprofen as needed Light stretches daily Strength exercises as able Moist heat and massage may help F/u with your PCP in 3-5 days for a recheck Return to the ED with any worsening symptoms and/or development of fever, headache, changes in behavior/mentation/speech/vision/balance, chest pain, palpitations, syncope, shortness of breath, trouble breathing, abdominal pain, n /v/d, muscle weakness/paralysis, numbness/tingling, swelling, redness, or other worsening symptoms that are concerning to you. Forms: Elevated Blood Pressure Referrals: [facility] [Provider Group] - Follow up as needed
[2018-02-24 04:16] VITALS: BP 118/59
== END 2018-02-24 04:15 | disposition home or self-care (01) ==
LOC: ER 03:19
DX: M25.561 Pain in right knee (principal); M25.562 Pain in left knee; G89.29 Other chronic pain; Z59.0 Homelessness
CPT/HCPCS: 99283

== ENCOUNTER 2018-05-10 16:46 | Emergency (ER) | payer MEDICARE, MEDICAID ==
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
[2018-05-10 17:55] LABS: HEMATOCRIT 41.4 % (37.9-51.0); HEMOGLOBIN 14.3 g/dL (13.5-17.0); MEAN CORPUSCULAR HEMOGLOBIN 36.1 pg (27.0-33.4); MEAN CORPUSCULAR HGB CONC 34.5 g/dL (32.0-36.0); MEAN CORPUSCULAR VOLUME 105 fl (80-97); PLATELET COUNT 240 10^3/uL (150-450); RED BLOOD COUNT 3.96 10^6/uL (4.35-5.55); RED CELL DISTRIBUTION WIDTH 14.5 % (11.5-14.0); WHITE BLOOD COUNT 5.6 10^3/uL (4.0-10.5)
[2018-05-10 18:11] LABS: ALANINE AMINOTRANSFERASE 44 U/L (21-72); ALBUMIN 4.7 g/dL (3.5-5.0); ALCOHOL 229 mg/dL (NONE DETECTED); ALKALINE PHOSPHATASE 99 U/L (38-126); ANION GAP 13 (5-19); ASPARTATE AMINO TRANSFERASE 55 U/L (17-59); BILIRUBIN,DIRECT 0.4 mg/dL (0.0-0.4); BILIRUBIN,TOTAL 0.4 mg/dL (0.2-1.3); BLOOD UREA NITROGEN 11 mg/dL (7-20); CALCIUM 9.7 mg/dL (8.4-10.2); CARBON DIOXIDE 25 mmol/L (22-30); CHLORIDE 109 mmol/L (98-107); GLUCOSE 87 mg/dL (75-110); POTASSIUM 4.3 mmol/L (3.6-5.0); SODIUM 146.9 mmol/L (137-145)
[2018-05-10 18:25] LABS: ABSOLUTE LYMPHOCYTES# (MANUAL) 2.4 10^3/uL (0.5-4.7); ABSOLUTE MONOCYTES # (MANUAL) 0.2 10^3/uL (0.1-1.4); ABSOLUTE NEUTROPHILS# (MANUAL) 2.9 10^3/uL (1.7-8.2); BASOPHILS % (MANUAL) 1 % (0-2); EOSINOPHILS % (MANUAL) 0 % (0-6); LYMPHOCYTES % (MANUAL) 40 % (13-45); MONOCYTES % (MANUAL) 4 % (3-13); SEGMENTED NEUTROPHILS % (MAN) 52 % (42-78); TOTAL CELLS COUNTED 100
[2018-05-10 18:38] LABS: ANISOCYTOSIS SLIGHT; OVALOCYTES SLIGHT; PLATELET COMMENT ADEQUATE; POIKILOCYTOSIS SLIGHT
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
[2018-05-10 23:56] VITALS: BP 112/81
[2018-05-11 00:26] LABS: APPEARANCE,URINE CLEAR; BILIRUBIN,URINE NEGATIVE (NEGATIVE); COLOR,URINE YELLOW; GLUCOSE, URINE NEGATIVE (NEGATIVE); KETONES,URINE NEGATIVE (NEGATIVE); LEUKOCYTE ESTERASE,URINE NEGATIVE (NEGATIVE); NITRITE,URINE NEGATIVE (NEGATIVE); PROTEIN,URINE NEGATIVE (NEGATIVE); URINE SPECIFIC GRAVITY 1.017; UROBILINOGEN,URINE NEGATIVE mg/dL (<2.0)
== END 2018-05-11 00:50 | disposition home or self-care (01) ==
LOC: ER 16:46
DX: F10.129 Alcohol abuse with intoxication, unspecified (principal); F17.200 Nicotine dependence, unspecified, uncomplicated
CPT/HCPCS: 36415; 80053; 80307; 81001; 85025; 99284

== ENCOUNTER 2018-06-03 23:56 | Emergency (ER) | payer MEDICARE, MEDICAID ==
[2018-06-04 00:17] VITALS: BP 144/84
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
== END 2018-06-04 00:50 | disposition home or self-care (01) ==
LOC: ER 23:56
DX: S00.419A Abrasion of unspecified ear, initial encounter (principal); S40.819A Abrasion of unspecified upper arm, initial encounter; X58.XXXA Exposure to other specified factors, initial encounter; Z91.048 Other nonmedicinal substance allergy status
CPT/HCPCS: 99282

== ENCOUNTER 2018-08-20 07:58 | Emergency (ER) | payer MEDICARE, MEDICAID ==
[2018-08-20 08:11] VITALS: BP 143/77
[2018-08-20] MEDS ORDERED: KETOROLAC TROMETHAMINE INJ/PF 30 MG/1 ML SDV IM ONE (08:20)
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
== END 2018-08-20 08:55 | disposition home or self-care (01) ==
LOC: ER 07:58
DX: G89.29 Other chronic pain (principal); M25.562 Pain in left knee; M25.561 Pain in right knee; M15.9 Polyosteoarthritis, unspecified; F17.200 Nicotine dependence, unspecified, uncomplicated; E78.00 Pure hypercholesterolemia, unspecified; Z86.19 Personal history of other infectious and parasitic diseases
CPT/HCPCS: 99283; 96372; J1885

== ENCOUNTER 2018-08-23 09:51 | Emergency (ER) | payer MEDICARE, MEDICAID ==
[2018-08-23 10:01] VITALS: BP 153/78
[2018-08-23] MEDS ORDERED: DEXAMETHASONE SOD PHOS INJ 10 MG/1 ML VIAL IM ONE (10:21)
[2018-08-23] MEDS ORDERED: KETOROLAC TROMETHAMINE 60 MG/2 ML SDV IM ONE (10:21)
--- NOTE | 2018-08-23 10:26 | ER Document Report ---
HPI - HPI Pain Level: 5 Notes: Patient is a 63-year-old male who presents to the ED complaining of chronic bilateral knee pain that has been bothering him for over a year, but pain increases when it is cold outside. Patient is homeless and he ambulates everywhere he has to go. Patient states that he does have soreness in his knees that does not radiate. No recent injury. Pt states that he understands he needs to use ice, heat, and elevation when his knee pain acts up. Patient states that it has been cold outside which prompted him to come the emergency department as his knees began to flareup again. Patient states that he has not had any alcohol today, but did drink a sixpack last evening. Patient states that he is otherwise eating and drinking without difficulties. He is urinating normally and having normal bowel movements. No other concerns or complaints at this time. Denies any headache, fever, neck pain, URI, sore throat, chest pain , palpitations, syncope, cough, shortness of breath, wheeze, dyspnea, abdominal pain, nausea/vomiting/diarrhea, urinary retention, dysuria, hematuria, loss of control of bowel or bladder, numbness/tingling, saddle anesthesia, muscle paralysis/weakness, or rash. - ROS Systems Reviewed and Negative: Yes All other systems reviewed and negative - REPRODUCTIVE Reproductive: DENIES: : Past Medical History - Social History Smoking Status: Unknown if Ever Smoked Family History: Hyperlipidemia, Hypertension - Past Medical History Cardiac Medical History: Reports: Hx Hypercholesterolemia Renal/ Medical History: Denies: Hx Peritoneal Dialysis GI Medical History: Reports: Hx Hepatitis - c Musculoskeletal Medical History: Reports Hx Arthritis, Reports Hx Musculoskeletal Deformity, Reports Hx Musculoskeletal Trauma Psychiatric Medical History: Reports: Hx Schizophrenia Traumatic Medical History: Reports: Hx Fractures Infectious Medical History: Reports: Hx Hepatitis - c Past Surgical History: Reports: Hx Abdominal Surgery - hernia repair, Hx Inguinal Hernia, Hx Oral Surgery - Hair lip repaired, Hx Rectal Surgery - hemorrhoid surgery - Immunizations Immunizations up to date: Yes Hx Diphtheria, Pertussis, Tetanus Vaccination: Yes Vertical Provider Document - CONSTITUTIONAL Agree With Documented VS: Yes Notes: PHYSICAL EXAMINATION: GENERAL: Well-appearing, well-nourished and in no acute distress. A&Ox3. Answers questions appropriately. I ambulated the patient up and down the hallway w/o any imbalance, unsteadiness, or other difficulties. Eyes: PERRLA. EOMI. LUNGS: Breath sounds clear to auscultation bilaterally and equal. No wheezes rales or rhonchi. HEART: Regular rate and rhythm without murmurs, rubs, gallops. Musculoskeletal: Knees b/l: FROM to passive/active. Strength 5+/5. Non-tender. No obvious swelling, deformity, ecchymosis, or warmth noted. Pt able to weight-bear w/o difficulty. + arthritic changes noted with palpation of his knees. N/V intact distal. Natanael neg b/l. Extremities: No cyanosis, clubbing, or edema b/l. Peripheral pulses 2+. Capillary refill less than 3 seconds. NEUROLOGICAL: Cranial nerves 2-12 grossly intact. Normal speech, slow, ataxic, gait. Normal sensory, motor exams. rhomberg negative. His baseline from previous visit(s). PSYCH: Normal mood, normal affect. He appears to be at his baseline with his mentation. SKIN: Warm, Dry, normal turgor, no rashes or lesions noted. - INFECTION CONTROL TRAVEL OUTSIDE OF THE [place] IN LAST 30 DAYS: No Course - Re-evaluation Re-evalutation: 08/23/18 10:23 Patient is an afebrile, well-hydrated, 63-year-old male who presents to the ED with complaint of bilateral knee pain, chronic. I suspect that this is arthritic change and that he wanted to come the emergency department tonight because it is colder out this evening. Vitals are acceptable. PE is otherwise unremarkable for any neurovascular compromise, obvious tendon/ligament rupture, obvious fracture/dislocation, septic joint. Toradol/Decadron given today. Patient is able to converse with me without any slurring or other difficulties. Cranial nerves are grossly intact, Romberg negative, patient's gait is ataxic but stable. As noted in my exam, I was able to ambulate the patient up and down the hallway without any imbalance or unsteadiness noted. Patient verbalized understanding that he knows where he is at and is aware of the risk of alcohol consumption. Patient is currently able to make clear decisive decisions for himself. No other labs or imaging warranted at this time based on H&P. Pt is tolerating PO intake. Recheck with your PCM in 3-5 days. Return to the ED with any worsening/concerning symptoms otherwise as reviewed discharge. Patient is in agreement. - Vital Signs Vital signs: Temp Pulse Resp BP Pulse Ox 98.1 F 96 18 153/78 H 99 08/23/18 09:58 08/23/18 09:58 10 09:58 08/23/18 09:58 08/23/18 09:58 Discharge - Discharge Clinical Impression: Bilateral knee pain Qualifiers: Chronicity: chronic Qualified Code(s): M25.561 - Pain in right knee; M25.562 - Pain in left knee; M25.562 - Pain in left knee; G89.29 - Other chronic pain; G89.29 - Other chronic pain Condition: Stable Disposition: HOME, SELF-CARE Additional Instructions: Rest, Ice, Compression, Elevation Tylenol/ibuprofen as needed Light stretches daily Strength exercises as able Moist heat and massage may help F/u with your PCP in 3-5 days for a recheck Consider consult(s) with Orthopedics/physical therapy for ongoing/worsening symptoms Return to the ED with any worsening symptoms and/or development of fever, headache, chest pain, palpitations, syncope, shortness of breath, trouble breathing, abdominal pain, n/v/d, blood in stool/urine, loss of control of bowel /bladder, urinary retention, muscle weakness/paralysis, saddle anesthesia, numbness/tingling, or other worsening symptoms that are concerning to you. Forms: Elevated Blood Pressure Referrals: MARV FORDE MD [Primary Care Provider] - Follow up as needed [facility] [Provider Group] - Follow up as needed
== END 2018-08-23 10:50 | disposition home or self-care (01) ==
LOC: ER 09:51
DX: M25.561 Pain in right knee (principal); M25.562 Pain in left knee; G89.29 Other chronic pain; Z86.19 Personal history of other infectious and parasitic diseases; E78.00 Pure hypercholesterolemia, unspecified
CPT/HCPCS: 99283; 96372; 96374; J1885; J1100

== ENCOUNTER 2018-10-01 14:47 | Emergency (ER) | payer MEDICARE, MEDICAID ==
--- NOTE | 2018-10-01 16:12 | ER Document Report ---
ED Extremity Problem, Lower - General Chief Complaint: Knee Pain Stated Complaint: KNEE PAIN Time Seen by Provider: 10/01/18 15:26 Mode of Arrival: Ambulatory Information source: Patient Notes: 68-year-old male presented to ED for complaint of knee pain. He states he has been seen multiple times for this knee pain but is getting ready to go on a trip and he wanted some pain medicine for the upcoming trip as well as Hong wrap for his knees. Denies any other complaints at this time. Patient is alert and oriented respirations regular and unlabored walking around in the emergency room. TRAVEL OUTSIDE OF THE [place] IN LAST 30 DAYS: No - HPI Patient complains to provider of: Pain Location: Knee Occurred: Other - Chronic his knees Onset/Duration: Persistent Quality of pain: Achy Severity: Severe Pain Level: 5 Context: Other Recent injury: No Associated symptoms: Painful ambulation Exacerbated by: Hanging down, Movement, Walking Relieved by: Rest - Related Data Allergies/Adverse Reactions: Horse/Equine Containing Products [Horse/Equine Product Derivatives] Allergy ( Verified 08/23/18 09:54) Past Medical History - General Information source: Patient - Social History Smoking Status: Unknown if Ever Smoked Frequency of alcohol use: None Drug Abuse: None Lives with: Alone Family History: Hyperlipidemia, Hypertension Patient has suicidal ideation: No Patient has homicidal ideation: No - Past Medical History Cardiac Medical History: Reports: Hx Hypercholesterolemia Pulmonary Medical History: Reports: None EENT Medical History: Reports: None Neurological Medical History: Reports: None Endocrine Medical History: Reports: None Renal/ Medical History: Reports: None Malignancy Medical History: Reports None GI Medical History: Reports: Hx Hepatitis - c Musculoskeletal Medical History: Reports Hx Arthritis, Reports Hx Musculoskeletal Deformity, Reports Hx Musculoskeletal Trauma Skin Medical History: Reports Hx Cellulitis Psychiatric Medical History: Reports: Hx Schizophrenia Traumatic Medical History: Reports: Hx Fractures Infectious Medical History: Reports: Hx Hepatitis - c Past Surgical History: Reports: Hx Abdominal Surgery - hernia repair, Hx Inguinal Hernia, Hx Oral Surgery - Hair lip repaired, Hx Rectal Surgery - hemorrhoid surgery - Immunizations Immunizations up to date: Yes Hx Diphtheria, Pertussis, Tetanus Vaccination: Yes Review of Systems - Review of Systems Notes: REVIEW OF SYSTEMS: CONSTITUTIONAL : Denies fever, chills, or sweats. Denies recent illness. EENT: Denies eye, ear, throat, or mouth pain or symptoms. Denies nasal or sinus congestion or discharge. Denies throat, tongue, or mouth swelling or difficulty swallowing. CARDIOVASCULAR: Denies chest pain. Denies palpitations or racing or irregular heart beat. Denies ankle edema. RESPIRATORY: Denies cough, cold, or chest congestion. Denies shortness of breath, difficulty breathing, or wheezing. GASTROINTESTINAL: Denies abdominal pain or distention. Denies nausea, vomiting , or diarrhea. Denies blood in vomitus, stools, or per rectum. Denies black, tarry stools. Denies constipation. GENITOURINARY: Denies difficulty urinating, painful urination, burning, frequency, blood in urine, or discharge. MUSCULOSKELETAL: Denies back or neck pain or stiffness. Pain and stiffness to both knees no new injuries SKIN: Denies rash, lesions or sores. HEMATOLOGIC : Denies easy bruising or bleeding. LYMPHATIC: Denies swollen, enlarged glands. NEUROLOGICAL: Denies confusion or altered mental status. Denies passing out or loss of consciousness. Denies dizziness or lightheadedness. Denies headache. Denies weakness or paralysis or loss of use of either side. Denies problems with gait or speech. Denies sensory loss, numbness, or tingling. Denies seizures. PSYCHIATRIC: Denies anxiety or stress. Denies depression, suicidal ideation, or homicidal ideation. ALL OTHER SYSTEMS REVIEWED AND NEGATIVE. Dictation was performed using [employer] voice recognition software PHYSICAL EXAMINATION: GENERAL: Well-appearing, well-nourished and in no acute distress. HEAD: Atraumatic, normocephalic. EYES: Pupils equal round and reactive to light, extraocular movements intact, sclera anicteric, conjunctiva are normal. ENT: Nares patent, oropharynx clear without exudates. Moist mucous membranes. NECK: Normal range of motion, supple without lymphadenopathy LUNGS: Breath sounds clear to auscultation bilaterally and equal. No wheezes rales or rhonchi. HEART: Regular rate and rhythm without murmurs ABDOMEN: Soft, nontender, nondistended abdomen. No guarding, no rebound. No masses appreciated. Musculoskeletal: Normal range of motion, no pitting or edema. No cyanosis. Going around the ER with a steady gait NEUROLOGICAL: Cranial nerves grossly intact. Normal speech, normal gait. Normal sensory, motor exams PSYCH: Normal mood, normal affect. SKIN: Warm, Dry, normal turgor, no rashes or lesions noted. Physical Exam - Vital signs Vitals: Temp Pulse Resp BP Pulse Ox 98.0 F 111 H 20 138/67 H 96 10/01/18 15:13 10/01/18 15:13 10/01/18 15:13 10/01/18 15:13 10/01/18 15:13 Course - Vital Signs Vital signs: Temp Pulse Resp BP Pulse Ox 97.7 F 116 H 20 120/65 96 10/01/18 16:15 10/01/18 16:15 10/01/18 16:15 10/01/18 16:15 10/01/18 16:15 Discharge - Discharge Clinical Impression: Chronic knee pain Qualifiers: Laterality: bilateral Qualified Code(s): M25.561 - Pain in right knee Condition: Stable Disposition: HOME, SELF-CARE Additional Instructions: You were seen today for your chronic pain in both knees. You stated you wanted a prescription strength Advil for your knee pain during your trip to [place] on the bus. You stated you just bought 80 Advil at the [facility] and you wanted some prescription strength to take with them. As I have explained you Advil, ibuprofen, and Motrin are all the exact same medication somewhat generic in summer name brand. You can take 1 Advil every 2 hours, 2 Advil every 4 hours, 3 Advil every 6 hours , or 4 Advil every 8 hours as needed for pain. Do not take Advil ibuprofen Motrin with Aleve because they are almost the same medicine. You need to side with the you will going to take ibuprofen or Aleve do not take both. You can take Tylenol with these as this is a different medicine. Please do not put an Hong wrap on your knee and try to go 3 or 4 days on a bus it will calls a blood clot. If you want to get a knee brace at the [facility] this would support your knee but would not cause a blood clot like the Hong wrap would. Please be sure to walk around when you can while taking this bus trip or you end up with blood clots. When you stop for a break on the bus please elevate your lower extremities. FOLLOW-UP CARE: If you have been referred to a physician for follow-up care, call the physician s office for an appointment as you were instructed or within the next two days. If you experience worsening or a significant change in your symptoms, notify the physician immediately or return to the Emergency Department at any time for re-evaluation. Forms: Elevated Blood Pressure, Smoking Cessation Education Referrals: MARV FORDE MD [Primary Care Provider] - Follow up as needed
[2018-10-01 16:19] VITALS: BP 120/65
== END 2018-10-01 16:26 | disposition home or self-care (01) ==
LOC: ER 14:47
DX: G89.29 Other chronic pain (principal); M25.561 Pain in right knee; M25.562 Pain in left knee; Z91.048 Other nonmedicinal substance allergy status
CPT/HCPCS: 99283

== ENCOUNTER 2018-10-04 04:55 | Emergency (ER) | payer MEDICARE, MEDICAID ==
--- NOTE | 2018-10-04 05:37 | ER Document Report ---
ED Medical Screen (RME) - General Chief Complaint: Knee Pain Stated Complaint: KNEE PAIN Time Seen by Provider: 10/04/18 05:31 Notes: Patient is a 63-year-old male presenting to the emergency department complaining of bilateral knee pain. Patient states he is homeless and typically drinks alcohol on a daily basis. Patient states he fell 3 times yesterday and is complaining of pain in bilateral knees and right hip. Patient is currently conscious alert and oriented x4 and denies hitting his head , neck or any loss of consciousness. Past medical history: None Medications: None Allergies: None Physical exam: Patient smells heavily of EtOH, is in wet clothing from his waist down. Bilateral lower extremities are cool to touch secondary to his wet cold clothing. Clothing was removed, warm blankets applied. Patient does have minor erythema and bruising noted to right knee. PMS present and equal bilateral lower extremities. I have greeted and performed a rapid initial assessment of this patient. A comprehensive ED assessment and evaluation of the patient, analysis of test results and completion of the medical decision making process will be conducted by additional ED providers. TRAVEL OUTSIDE OF THE [place] IN LAST 30 DAYS: No - Related Data Allergies/Adverse Reactions: Horse/Equine Containing Products [Horse/Equine Product Derivatives] Allergy ( Verified 08/23/18 09:54) Past Medical History - Social History Chew tobacco use (# tins/day): No Frequency of alcohol use: Heavy Drug Abuse: None - Past Medical History Cardiac Medical History: Reports: Hx Hypercholesterolemia Renal/ Medical History: Denies: Hx Peritoneal Dialysis GI Medical History: Reports: Hx Hepatitis - c Musculoskeltal Medical History: Reports Hx Arthritis, Reports Hx Musculoskeletal Deformity, Reports Hx Musculoskeletal Trauma Skin Medical History: Reports Hx Cellulitis Psychiatric Medical History: Reports: Hx Schizophrenia Traumatic Medical History: Reports: Hx Fractures Infectious Medical History: Reports: Hx Hepatitis - c Past Surgical History: Reports: Hx Abdominal Surgery - hernia repair, Hx Inguinal Hernia, Hx Oral Surgery - Hair lip repaired, Hx Rectal Surgery - hemorrhoid surgery - Immunizations Immunizations up to date: Yes Hx Diphtheria, Pertussis, Tetanus Vaccination: Yes Physical Exam - Vital signs Vitals: Temp Resp Pulse Ox 97.6 F 18 100 10/04/18 05:09 10/04/18 05:09 10/04/18 05:09 Course - Vital Signs Vital signs: Temp Pulse Resp BP Pulse Ox 97.6 F 18 100 10/04/18 05:09 10/04/18 05:09 10/04/18 05:09 Doctor's Discharge - Discharge Referrals: MARV FORDE MD [Primary Care Provider] - Follow up as needed
--- NOTE | 2018-10-04 06:14 | RADIOLOGY REPORT (SQ) ---
EXAM DESCRIPTION: XR KNEE 1-2 VIEWS BILATERAL COMPLETED DATE/TME: 10/04/2018 05:32 CLINICAL HISTORY: 63 years, Male, pain COMPARISON: Prior left knee 9-17 NUMBER OF VIEWS: 4 TECHNIQUE: 4 view bilateral knee LIMITATIONS: None. FINDINGS: Osteopenia. Mild medial and patellofemoral compartment degenerative change bilaterally. Negative for acute fracture or dislocation. IMPRESSION: Osteopenia with degenerative changes bilaterally. copyright 2010 [employer]- All Rights Reserved
--- NOTE | 2018-10-04 06:15 | RADIOLOGY REPORT (SQ) ---
EXAM DESCRIPTION: XR HIP 2 OR MORE VIEWS COMPLETED DATE/TME: 10/04/2018 05:32 CLINICAL HISTORY: 63 years, Male, pain COMPARISON: 06/04/2016 pelvis NUMBER OF VIEWS: 3 TECHNIQUE: AP view of the pelvis with a single view of the right hip LIMITATIONS: None. FINDINGS: Osteopenia. Negative for acute fracture or dislocation, however there is superior subluxation and migration of the femoral heads bilaterally secondary to severe osteoarthritic changes. There is extensive subchondral sclerosis and subchondral cyst formation. Deformity of the femoral heads bilaterally suspicious for avascular necrosis. IMPRESSION: No acute osseous abnormality. 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
--- NOTE | 2018-10-04 06:20 | ER Document Report ---
ED General - General Chief Complaint: Knee Pain Stated Complaint: KNEE PAIN Time Seen by Provider: 10/04/18 05:31 Notes: Patient is a 63-year-old male with history of alcoholism that presents to the emergency department for chief complaint of bilateral knee and hip pain after fall. Patient reports that he fell on the sidewalk around 11:30 PM last night, onto his knees, and states he has bilateral pain in both knees and hips. He has been able to walk since then. He denies head injury or neck injury, denies any numbness, tingling or weakness. Patient states he was drinking last night as well, which he typically drinks on a daily basis. He denies any other complaints at this time. Past Medical History: Alcoholism, arthritis Past Surgical History: Reviewed and not pertinent to presentation Social History: Admits to smoking cigarettes on occasion, and daily alcohol use , denies illicit drug use Family History: Reviewed and noncontributory for presenting illness Allergies: Reviewed, see documented allergy list. REVIEW OF SYSTEMS: Other than noted above, the 12 point review of systems was reviewed with the patient and were negative, all pertinent findings are included in the HPI. PHYSICAL EXAMINATION: Vital signs reviewed, nursing noted reviewed. GENERAL: Disheveled appearing male, poor hygiene, appears to be mildly intoxicated HEAD: Atraumatic, normocephalic. EYES: Eyes appear normal, extraocular movements intact, sclera anicteric, conjunctiva are normal. ENT: nares patent, oropharynx clear without exudates. Moist mucous membranes. NECK: Normal range of motion, supple without lymphadenopathy LUNGS: Breath sounds clear to auscultation bilaterally and equal. No wheezes rales or rhonchi. HEART: Regular rate and rhythm without murmurs ABDOMEN: Soft, nontender, normoactive bowel sounds. No rebound, guarding, or rigidity. No masses appreciated. EXTREMITIES: Mild tenderness with palpation to the bilateral joint lines of the knees, good range of motion however, no joint effusions bilaterally. No significant abrasions or injuries noted otherwise. The upper extremities are unremarkable, no scrapes on the hands. Good range of motion of both upper extremities as well. NEUROLOGICAL: No focal neurological deficits. Moves all extremities spontaneously Motor and sensory grossly intact on exam. PSYCH: Mildly intoxicated, but answering questions appropriately. SKIN: Warm, Dry, normal turgor, no rashes or lesions noted on exposed skin TRAVEL OUTSIDE OF THE [place] IN LAST 30 DAYS: No - Related Data Allergies/Adverse Reactions: Horse/Equine Containing Products [Horse/Equine Product Derivatives] Allergy ( Verified 08/23/18 09:54) Past Medical History - Social History Smoking Status: Current Every Day Smoker Chew tobacco use (# tins/day): No Frequency of alcohol use: Heavy Drug Abuse: None Family History: Hyperlipidemia, Hypertension Patient has suicidal ideation: No Patient has homicidal ideation: No - Past Medical History Cardiac Medical History: Reports: Hx Hypercholesterolemia Renal/ Medical History: Denies: Hx Peritoneal Dialysis GI Medical History: Reports: Hx Hepatitis - c Musculoskeletal Medical History: Reports Hx Arthritis, Reports Hx Musculoskeletal Deformity, Reports Hx Musculoskeletal Trauma Skin Medical History: Reports Hx Cellulitis Psychiatric Medical History: Reports: Hx Schizophrenia Traumatic Medical History: Reports: Hx Fractures Infectious Medical History: Reports: Hx Hepatitis - c Past Surgical History: Reports: Hx Abdominal Surgery - hernia repair, Hx Inguinal Hernia, Hx Oral Surgery - Hair lip repaired, Hx Rectal Surgery - hemorrhoid surgery - Immunizations Immunizations up to date: Yes Hx Diphtheria, Pertussis, Tetanus Vaccination: Yes Physical Exam - Vital signs Vitals: Temp Resp Pulse Ox 97.6 F 18 100 10/04/18 05:09 10/04/18 05:09 10/04/18 05:09 Course - Re-evaluation Re-evalutation: X-rays were obtained, and are negative for acute fracture or bony injury. Patient was given naproxen for his pain, he was allowed to rest in the emergency department, and discharged. He did not have any complaints, and agreed with plan of care to be discharged. Hip/Pelvis X-Ray 10/04/18 05:32 IMPRESSION: No acute osseous abnormality. 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 copyright 2010 [email or web address]- All Rights Reserved - Vital Signs Vital signs: Temp Pulse Resp BP Pulse Ox 97.8 F 82 17 123/63 98 10/04/18 06:58 10/04/18 06:58 10/04/18 06:58 10/04/18 06:58 10/04/18 06:58 Discharge - Discharge Clinical Impression: Knee pain Qualifiers: Chronicity: acute Laterality: bilateral Qualified Code(s): M25.561 - Pain in right knee Hip pain Qualifiers: Laterality: bilateral Qualified Code(s): M25.551 - Pain in right hip Fall Qualifiers: Encounter type: initial encounter Qualified Code(s): W19.XXXA - Unspecified fall, initial encounter Condition: Stable Disposition: HOME, SELF-CARE Instructions: Sprained Knee ([facility]) Additional Instructions: Please follow-up with the primary care physician, please use ice or cool compresses to help with the pain in your knees. Nothing was broken no fractures on your x-rays today. Referrals: MARV FORDE MD [Primary Care Provider] - Follow up in 3-5 days
[2018-10-04] MEDS ORDERED: NAPROXEN 250 MG TABLET PO ONE (06:40)
[2018-10-04 06:59] VITALS: BP 123/63
== END 2018-10-04 06:59 | disposition home or self-care (01) ==
LOC: ER 04:55
DX: M25.561 Pain in right knee (principal); M25.562 Pain in left knee; M25.551 Pain in right hip; M25.552 Pain in left hip; W19.XXXA Unspecified fall, initial encounter; F17.210 Nicotine dependence, cigarettes, uncomplicated
CPT/HCPCS: 99284; 73502; 73560; A9270

== ENCOUNTER 2019-05-01 16:26 | Emergency (ER) | payer MEDICARE, MEDICAID ==
[2019-05-01 18:03] LABS: ABSOLUTE BASOPHILS # (AUTO) 0.1 10^3/uL (0.0-0.2); ABSOLUTE EOSINOPHILS # (AUTO) 0.3 10^3/uL (0.0-0.6); ABSOLUTE LYMPHOCYTES (AUTO) 1.9 10^3/uL (0.5-4.7); ABSOLUTE MONOCYTES (AUTO) 0.8 10^3/uL (0.1-1.4); ABSOLUTE NEUT (AUTO) 5.5 10^3/uL (1.7-8.2); ALANINE AMINOTRANSFERASE 55 U/L (21-72); ALBUMIN 4.5 g/dL (3.5-5.0); ALCOHOL 142 mg/dL (NONE DETECTED); ALKALINE PHOSPHATASE 118 U/L (38-126); ANION GAP 11 (5-19); ASPARTATE AMINO TRANSFERASE 45 U/L (17-59); BASOPHILS % (AUTO) 1.1 % (0-2); BILIRUBIN,DIRECT 0.4 mg/dL (0.0-0.4); BILIRUBIN,TOTAL 0.5 mg/dL (0.2-1.3); BLOOD UREA NITROGEN 12 mg/dL (7-20); CALCIUM 9.9 mg/dL (8.4-10.2); CARBON DIOXIDE 25 mmol/L (22-30); CHLORIDE 107 mmol/L (98-107); EOSINOPHILS % (AUTO) 2.9 % (0-6); GLUCOSE 92 mg/dL (75-110); HEMATOCRIT 40.3 % (37.9-51.0); HEMOGLOBIN 13.6 g/dL (13.5-17.0); LYMPHOCYTES % (AUTO) 22.3 % (13-45); MEAN CORPUSCULAR HEMOGLOBIN 33.1 pg (27.0-33.4); MEAN CORPUSCULAR HGB CONC 33.8 g/dL (32.0-36.0); MEAN CORPUSCULAR VOLUME 98 fl (80-97); MONOCYTES % (AUTO) 9.2 % (3-13); PLATELET COUNT 259 10^3/uL (150-450); POTASSIUM 4.3 mmol/L (3.6-5.0); RED BLOOD COUNT 4.12 10^6/uL (4.35-5.55); RED CELL DISTRIBUTION WIDTH 13.8 % (11.5-14.0); SEGMENTED NEUTROPHILS % (AUTO) 64.5 % (42-78); SODIUM 143.1 mmol/L (137-145); TOTAL CELLS COUNTED % (AUTO) 100 %; WHITE BLOOD COUNT 8.6 10^3/uL (4.0-10.5)
[2019-05-01 18:04] LABS: ACETAMINOPHEN < 10 ug/mL (10-30); SALICYLATE < 1.0 mg/dL (2.0-20.0)
[2019-05-01 18:09] LABS: APPEARANCE,URINE CLEAR; BILIRUBIN,URINE NEGATIVE (NEGATIVE); COLOR,URINE YELLOW; GLUCOSE, URINE NEGATIVE (NEGATIVE); KETONES,URINE NEGATIVE (NEGATIVE); LEUKOCYTE ESTERASE,URINE NEGATIVE (NEGATIVE); NITRITE,URINE NEGATIVE (NEGATIVE); PROTEIN,URINE NEGATIVE (NEGATIVE); URINE SPECIFIC GRAVITY 1.008; UROBILINOGEN,URINE NEGATIVE mg/dL (<2.0)
[2019-05-01 18:24] LABS: URINE AMPHETAMINES SCREEN NEGATIVE; URINE BARBITURATES SCREEN NEGATIVE; URINE BENZODIAZEPINES SCREEN NEGATIVE; URINE COCAINE SCREEN NEGATIVE; URINE MARIJUANA (THC) SCREEN NEGATIVE; URINE METHADONE SCREEN NEGATIVE; URINE PHENCYCLIDINE SCREEN NEGATIVE
--- NOTE | 2019-05-01 19:17 | ER Document Report ---
ED Medical Screen (RME) - General Chief Complaint: Psych Problem Stated Complaint: ALTERED MENTAL STATUS Time Seen by Provider: 05/01/19 19:03 Primary Care Provider: GEN MEDINA MD [Primary Care Provider] - Follow up as needed TRAVEL OUTSIDE OF THE [place] IN LAST 30 DAYS: No - Related Data Allergies/Adverse Reactions: Horse/Equine Containing Products [Horse/Equine Product Derivatives] Allergy (Verified 08/23/18 09:54) Past Medical History - General Information source: Patient - Past Medical History Cardiac Medical History: Reports: Hx Hypercholesterolemia Renal/ Medical History: Denies: Hx Peritoneal Dialysis GI Medical History: Reports: Hx Hepatitis - c Musculoskeltal Medical History: Reports Hx Arthritis, Reports Hx Musculoskeletal Deformity, Reports Hx Musculoskeletal Trauma Skin Medical History: Reports Hx Cellulitis Psychiatric Medical History: Reports: Hx Schizophrenia Traumatic Medical History: Reports: Hx Fractures Infectious Medical History: Reports: Hx Hepatitis - c Past Surgical History: Reports: Hx Abdominal Surgery - hernia repair, Hx I nguinal Hernia, Hx Oral Surgery - Hair lip repaired, Hx Rectal Surgery - hemorrhoid surgery - Immunizations Immunizations up to date: Yes Hx Diphtheria, Pertussis, Tetanus Vaccination: Yes Course - Laboratory Result Diagrams: 05/01/19 17:05 05/01/19 17:05 Laboratory results interpreted by me: 05/01/19 05/01/19 17:05 17:05 RBC 4.12 L MCV 98 H Salicylates < 1.0 L Acetaminophen < 10 L Doctor's Discharge - Discharge Referrals: GEN MEDINA MD [Primary Care Provider] - Follow up as needed
--- NOTE | 2019-05-01 19:23 | ER Document Report ---
ED Psych Disorder / Suicide <LINDA GREER - Last Filed: 05/03/19 01:38> - General TRAVEL OUTSIDE OF THE [place] IN LAST 30 DAYS: No <JOSE POLK - Last Filed: 05/03/19 18:33> - General Chief Complaint: Psych Problem Stated Complaint: ALTERED MENTAL STATUS Time Seen by Provider: 05/01/19 19:03 Primary Care Provider: [facility] [Provider Group] - Follow up in 3-5 days ALAYNA RDZ MD [JAI RAMOS] - Follow up in 3-5 days Notes: Patient has been seen here previously. He is here tonight complaining of pain in the inner aspect of his left ankle. Had a very large denuded area over the medial malleolus. He says he had surgery on that ankle at [facility] [place] and was kept in rehab afterwards for about 12 weeks. Denies other injuries. Says the visiting nurse who takes care of his parents told him he needed to come to the emergency room to be seen. Patient smokes cigarettes and drinks alcohol. He is not very cooperative. Unpleasant, frequently raising his voice is almost a yellow and expresses hostility. Patient does not express any hostility or threats of killing himself or anyone else. (JOSE POLK) - Related Data Allergies/Adverse Reactions: Horse/Equine Containing Products [Horse/Equine Product Derivatives] Allergy (Verified 08/23/18 09:54) Past Medical History - General Information source: Patient - Social History Smoking Status: Unknown if Ever Smoked Frequency of alcohol use: Heavy Family History: Reviewed & Not Pertinent, Hyperlipidemia, Hypertension - Past Medical History Cardiac Medical History: Reports: Hx Hypercholesterolemia Renal/ Medical History: Denies: Hx Peritoneal Dialysis GI Medical History: Reports: Hx Hepatitis - c Musculoskeletal Medical History: Reports Hx Arthritis, Reports Hx Musculoskeletal Deformity, Reports Hx Musculoskeletal Trauma Skin Medical History: Reports Hx Cellulitis Psychiatric Medical History: Reports: Hx Schizophrenia Traumatic Medical History: Reports: Hx Fractures Infectious Medical History: Reports: Hx Hepatitis - c Past Surgical History: Reports: Hx Abdominal Surgery - hernia repair, Hx Ing uinal Hernia, Hx Oral Surgery - Hair lip repaired, Hx Rectal Surgery - hemorrhoid surgery - Immunizations Immunizations up to date: Yes Hx Diphtheria, Pertussis, Tetanus Vaccination: Yes <JOSE POLK - Last Filed: 05/03/19 18:33> Review of Systems <JOSE POLK - Last Filed: 05/03/19 18:33> - Review of Systems Notes: CONSTITUTIONAL : Denies fever. CARDIOVASCULAR: Denies chest pain. RESPIRATORY: Denies cough, chest congestion, or shortness of breath. GASTROINTESTINAL: Denies abdominal pain or nausea, vomiting, or diarrhea. GENITOURINARY: Denies difficulty or painful urinating, urinary frequency, blood in urine. (JOSE POLK) Physical Exam - Vital signs Interpretation: Normal <JOSE POLK - Last Filed: 05/03/19 18:33> - Vital signs Vitals: Temp Pulse Resp BP Pulse Ox 98.4 F 89 18 135/79 H 100 05/02/19 00:49 05/02/19 00:49 05/02/19 00:49 05/02/19 00:49 05/02/19 00:49 PHYSICAL EXAMINATION: GENERAL: Well-appearing, no acute distress. HEAD: Atraumatic, normocephalic. NECK: Normal range of motion, supple. LUNGS: Breath sounds clear and equal bilaterally. HEART: Regular rate and rhythm without murmurs heard. ABDOMEN: Soft, nontender. No guarding or rebound or masses felt. Extremity: Patient has a circular cavitary-looking lesion over the left inner ankle which is erythematous around the lesion and up up towards the patient's mid left lower leg. (JOSE POLK) Course - Laboratory Result Diagrams: 05/01/19 17:05 05/01/19 17:05 <LINDA GREER - Last Filed: 05/03/19 01:38> - Laboratory Result Diagrams: 05/01/19 17:05 05/01/19 17:05 <JOSE POLK - Last Filed: 05/03/19 18:33> - Re-evaluation Re-evalutation: 05/02/19 00:32 She was initially seen by Dr. Polk. I did read his note per Dr. Polk's assessment patient is not to be held against as well and can leave as he is not homicidal suicidal. Nurse informed the patient wants to leave. I did go speak with the patient. He is being healed held until morning time to see the surgeon according to Dr. Polk's note. This is because of a wound on the medial aspect of his left ankle. Patient did let me see the wound. The wound appears to be a chronic wound. It is approximately 4 cm in diameter on the medial aspect of the left ankle. There is no spreading redness or erythema. Nothing to suggest its infected. Patient says is been there for a long time. I informed him that she is more walking is still states the morning time however the patient says he does not want to stay. Patient is awake and alert and is cooperative and answering questions appropriately. He shows capacity to make his own decisions. I cannot hold him against as well at this time. Patient will be referred to the wound clinic as well as surgery clinic. I did have the nurse apply a nonstick dressing to the wound. I informed him to have a low threshold to return to ER anytime if he has enlargement of the wound, any red ness or swelling, or if he has any further concerns. Patient encouraged to keep the wound covered when he is wearing socks or shoes. Patient agrees with plan and will be discharged home as he requests. Dictation of this chart was performed using voice recognition software; therefore, there may be some unintended grammatical errors. 05/02/19 00:35 (LINDA GREER) 05/01/19 19:45 Discussed disposition with patient. Offered to get an x-ray of the patient's ankle start a culture of that wound and get surgery to see him in the morning. He seems agreeable with that plan. I am not can hold him against leaving against his will to go because I do not think he suicidal or harmful to anyone. (JOSE POLK) - Vital Signs Vital signs: Temp Pulse Resp BP Pulse Ox 98.4 F 89 18 135/79 H 100 05/02/19 00:49 05/02/19 00:49 05/02/19 00:49 05/02/19 00:49 05/02/19 00:49 Patient is obviously intoxicated. Is not suicidal or homicidal. I have offered to keep him overnight and have him seen by the surgeon in the morning. He is agreeable with this plan. I will not keep him against his will, however. Cultures of the wound are being ordered. I am also ordering an x-ray of the ankle. 05/01/19 19:36 Patient's alcohol level is 142. All other lab studies are essentially normal. (JOSE POLK) - Laboratory Laboratory results interpreted by me: 05/01/19 05/01/19 17:05 17:05 RBC 4.12 L MCV 98 H Salicylates < 1.0 L Acetaminophen < 10 L Discharge <GREERLINDA - Last Filed: 05/03/19 01:38> <JOSE POLK - Last Filed: 05/03/19 18:33> - Discharge Clinical Impression: Chronic alcohol abuse Alcohol intoxication Qualifiers: Complication of substance-induced condition: uncomplicated Qualified Code(s): F10.920 - Alcohol use, unspecified with intoxication, uncomplicated Ankle wound Qualifiers: Encounter type: initial encounter Laterality: left Qualified Code(s): S91.002A - Unspecified open wound, left ankle, initial encounter Condition: Good Disposition: HOME, SELF-CARE Additional Instructions: I will refer you to the wound care clinic here in [facility]. Sometimes the wound care clinic will want an official referral from the surgeon. I therefore have also given you the name and number to the surgery clinic. The surgery clinic phone number is under the name Dr. Rdz in your discharge paperwork. Please call the office to make an appointment. Please return to the ER if you have enlargement of the wound on your ankle, any spreading redness or swelling, fevers, or if you feel unwell. Please keep the wound covered when wearing shoes or sock so it does not get irritated. Referrals: ALAYNA RDZ MD [JAI RAMOS] - Follow up in 3-5 days W[facility] [Provider Group] - Follow up in 3-5 days
--- NOTE | 2019-05-01 22:05 | EKG REPORT ---
SEVERITY:- ABNORMAL ECG - SINUS RHYTHM PROBABLE ANTEROSEPTAL INFARCT, OLD : Confirmed by: Manny Alicea 01-May-2019 22:04:30
[2019-05-02 00:50] VITALS: BP 135/79
== END 2019-05-02 00:40 | disposition home or self-care (01) ==
LOC: ER 16:26
DX: F10.120 Alcohol abuse with intoxication, uncomplicated (principal); S91.002A Unspecified open wound, left ankle, initial encounter; R41.82 Altered mental status, unspecified; X58.XXXA Exposure to other specified factors, initial encounter; E78.00 Pure hypercholesterolemia, unspecified; F17.210 Nicotine dependence, cigarettes, uncomplicated; Z86.19 Personal history of other infectious and parasitic diseases
CPT/HCPCS: 36415; 80053; 80307; 81001; 85025; 93005; 93010; 99284

== ENCOUNTER 2019-05-13 14:20 | Emergency (ER) | payer MEDICARE, MEDICAID ==
--- NOTE | 2019-05-13 15:11 | ER Document Report ---
ED Medical Screen (RME) - General Chief Complaint: Wound Infection Stated Complaint: LEFT LEG PAIN/OPEN SORE Time Seen by Provider: 05/13/19 15:09 Primary Care Provider: GEN MEDINA MD [Primary Care Provider] - Follow up as needed Mode of Arrival: Wheelchair Information source: Patient Notes: 63-year-old male presented to ED for complaint of infection to the left lower leg. He states he has had this infection and being treated for a long time. He states he is homeless and EMS told he did look like he had infection in the area at this time. He states he smokes pack a day and drinks daily. He does have a dressing intact that EMS put on him today. There is redness above and below the dressing. Patient states he has been getting treatment for his wound by the [facility]. He states he got it wet in the rain this morning. I have greeted and performed a rapid initial assessment of this patient. A comprehensive ED assessment and evaluation of the patient, analysis of test results and completion of medical decision making process will be conducted by an additional ED providers. Dictation of this chart was performed using voice recognition software; therefore, there may be some unintended grammatical errors. TRAVEL OUTSIDE OF THE [place] IN LAST 30 DAYS: No - Related Data Allergies/Adverse Reactions: Horse/Equine Containing Products [Horse/Equine Product Derivatives] Allergy (Verified 05/13/19 14:28) Past Medical History - Past Medical History Cardiac Medical History: Reports: Hx Hypercholesterolemia Renal/ Medical History: Denies: Hx Peritoneal Dialysis GI Medical History: Reports: Hx Hepatitis - c Musculoskeltal Medical History: Reports Hx Arthritis, Reports Hx Musculoskeletal Deformity, Reports Hx Musculoskeletal Trauma Skin Medical History: Reports Hx Cellulitis Psychiatric Medical History: Reports: Hx Schizophrenia Traumatic Medical History: Reports: Hx Fractures Infectious Medical History: Reports: Hx Hepatitis - c Past Surgical History: Reports: Hx Abdominal Surgery - hernia repair, Hx Inguinal Hernia, Hx Oral Surgery - Hair lip repaired, Hx Rectal Surgery - hemorrhoid surgery - Immunizations Immunizations up to date: Yes Hx Diphtheria, Pertussis, Tetanus Vaccination: Yes Physical Exam - Vital signs Vitals: Temp Pulse Resp BP Pulse Ox 97.9 F 96 20 125/70 96 05/13/19 14:33 05/13/19 14:33 05/13/19 14:33 05/13/19 14:33 05/13/19 14:33 Course - Vital Signs Vital signs: Temp Pulse Resp BP Pulse Ox 97.9 F 96 20 125/70 96 05/13/19 14:33 05/13/19 14:33 05/13/19 14:33 05/13/19 14:33 05/13/19 14:33 Doctor's Discharge - Discharge Referrals: GEN MEDINA MD [Primary Care Provider] - Follow up as needed
[2019-05-13 16:10] LABS: ALANINE AMINOTRANSFERASE 64 U/L (21-72); ALBUMIN 4.5 g/dL (3.5-5.0); ALKALINE PHOSPHATASE 174 U/L (38-126); ANION GAP 8 (5-19); ASPARTATE AMINO TRANSFERASE 89 U/L (17-59); BILIRUBIN,DIRECT 0.3 mg/dL (0.0-0.4); BILIRUBIN,TOTAL 0.5 mg/dL (0.2-1.3); BLOOD UREA NITROGEN 10 mg/dL (7-20); CALCIUM 9.5 mg/dL (8.4-10.2); CARBON DIOXIDE 29 mmol/L (22-30); CHLORIDE 102 mmol/L (98-107); GLUCOSE 82 mg/dL (75-110); POTASSIUM 4.1 mmol/L (3.6-5.0); SODIUM 138.8 mmol/L (137-145); TOTAL PROTEIN 8.3 g/dL (6.3-8.2)
[2019-05-13 16:11] LABS: C-REACTIVE PROTEIN < 5.0 mg/L (<10.0)
--- NOTE | 2019-05-13 16:27 | RADIOLOGY REPORT (SQ) ---
EXAM DESCRIPTION: TIBIA FIBULA LEFT COMPLETED DATE/TIME: 05/13/2019 4:09 pm REASON FOR STUDY: infection left lower leg COMPARISON: None. NUMBER OF VIEWS: Two views. TECHNIQUE: Two radiographic images acquired of the left tibia and fibula to include the knee and ank le in at least one projection. LIMITATIONS: None. FINDINGS: MINERALIZATION: Normal. BONES: No acute fracture, erosions or destruction bone, or dislocation. SOFT TISSUES: No obvious swelling or foreign body. OTHER: No other significant finding. IMPRESSION: 1. No acute osseous findings. Correlation suggested and additional imaging if clinical ly indicated. TECHNICAL DOCUMENTATION: JOB ID: [id number] [employer]- All Rights Reserved Reading location - IP/workstation name: [email or web address]
[2019-05-13 16:35] LABS: ABSOLUTE EOSINOPHILS # (AUTO) 0.1 10^3/uL (0.0-0.6); ABSOLUTE LYMPHOCYTES (AUTO) 1.1 10^3/uL (0.5-4.7); ABSOLUTE MONOCYTES (AUTO) 0.5 10^3/uL (0.1-1.4); ABSOLUTE NEUT (AUTO) 3.1 10^3/uL (1.7-8.2); BASOPHILS % (AUTO) 0.8 % (0-2); EOSINOPHILS % (AUTO) 2.3 % (0-6); HEMATOCRIT 41.5 % (37.9-51.0); HEMOGLOBIN 14.1 g/dL (13.5-17.0); LYMPHOCYTES % (AUTO) 23.7 % (13-45); MEAN CORPUSCULAR HEMOGLOBIN 33.7 pg (27.0-33.4); MEAN CORPUSCULAR VOLUME 99 fl (80-97); PLATELET COUNT 165 10^3/uL (150-450); RED BLOOD COUNT 4.19 10^6/uL (4.35-5.55); RED CELL DISTRIBUTION WIDTH 14.7 % (11.5-14.0); SEGMENTED NEUTROPHILS % (AUTO) 63.2 % (42-78); TOTAL CELLS COUNTED % (AUTO) 100 %; WHITE BLOOD COUNT 4.8 10^3/uL (4.0-10.5)
[2019-05-13 17:35] LABS: ERYTHROCYTE SEDIMENTATION RATE 21 mm/hr (0-20)
[2019-05-13 20:52] LABS: URIC ACID 6.1 mg/dL (3.5-8.5)
--- NOTE | 2019-05-13 22:22 | ER Document Report ---
Entered by JIMMY PAULSON SCRIBE 05/13/192009 Acting as scribe for:INNA LUO MD ED Wound - General Chief Complaint: Wound Infection Stated Complaint: LEFT LEG PAIN/OPEN SORE Time Seen by Provider: 05/13/19 15:09 Primary Care Provider: GEN MEDINA MD [Primary Care Provider] - Follow up as needed Mode of Arrival: Wheelchair Information source: Patient Notes: 63-year-old male who presents to the emergency department today with complaints of a chronic left lower extremity wound. Patient was seen here about a month ago for the same wound, was due to see surgery the following morning but the patient wished to leave the facility prior. The patient has not followed up with wound care as instructed either. Patient complains of continued pain, swelling, and erythema to his left lower extremity. Patient also mentions that he has bilateral knee pain which is chronic as well. Patient uses a wheelchair to get around. TRAVEL OUTSIDE OF THE [place] IN LAST 30 DAYS: No - Related Data Allergies/Adverse Reactions: Horse/Equine Containing Products [Horse/Equine Product Derivatives] Allergy (Verified 05/13/19 14:28) Past Medical History - General Information source: Patient - Social History Smoking Status: Current Every Day Smoker Cigarette use (# per day): Yes Frequency of alcohol use: Heavy Drug Abuse: None Lives with: Family Family History: Reviewed & Not Pertinent, Hyperlipidemia, Hypertension Patient has suicidal ideation: No Patient has homicidal ideation: No - Past Medical History Cardiac Medical History: Reports: Hx Hypercholesterolemia GI Medical History: Reports: Hx Hepatitis - c Musculoskeletal Medical History: Reports Hx Arthritis, Reports Hx Musculoskeletal Deformity, Reports Hx Musculoskeletal Trauma Skin Medical History: Reports Hx Cellulitis Psychiatric Medical History: Reports: Hx Schizophrenia Traumatic Medical History: Reports: Hx Fractures Infectious Medical History: Reports: Hx Hepatitis - c Past Surgical History: Reports: Hx Abdominal Surgery - hernia repair, Hx Inguinal Hernia, Hx Oral Surgery - Hair lip repaired, Hx Rectal Surgery - hemorrhoid surgery - Immunizations Immunizations up to date: Yes Hx Diphtheria, Pertussis, Tetanus Vaccination: Yes Review of Systems - Review of Systems Constitutional: No symptoms reported EENT: No symptoms reported Cardiovascular: No symptoms reported Respiratory: No symptoms reported Gastrointestinal: No symptoms reported Genitourinary: No symptoms reported Male Genitourinary: No symptoms reported Musculoskeletal: See HPI, Joint pain - leg pain bilaterally, Leg swelling Skin: See HPI, Other - wound Hematologic/Lymphatic: No symptoms reported Neurological/Psychological: No symptoms reported -: Yes All other systems reviewed and negative Physical Exam - Vital signs Vitals: Temp Pulse Resp BP Pulse Ox 97.9 F 96 20 125/70 96 05/13/19 14:33 05/13/19 14:33 05/13/19 14:33 05/13/19 14:33 05/13/19 14:33 - Notes Notes: Physical Exam: General: Alert, disheveled. HEENT: Normocephalic. Atraumatic. PERRL. Extraocular movements intact. Oropha rynx clear. Neck: Supple. Non-tender. Respiratory: No respiratory distress. Clear and equal breath sounds bilaterally. Cardiovascular: Regular rate and rhythm. Abdominal: Normal Inspection. Non-tender. No distension. Normal Bowel Sounds. Back: Non-tender. No deformity or step off. Extremities: Moves all four extremities. Upper extremities: Normal inspection. Normal ROM. Lower extremities: Cannot fully extend either leg, although right can be extended slightly more than the left. Very firm pitting edema bilaterally, less severe on the right. Circular non-healing wound to the left medial ankle with erythema extending up the leg. Difficulty walking, uses a wheelchair. No tendern ess with palpation of either knee. Ballotable fluid inferior to the left patella. Neurological: Normal cognition. AAOx4. Normal speech. Psychological: Normal affect. Normal Mood. Skin: Warm. Dry. Normal color. Course - Vital Signs Vital signs: Temp Pulse Resp BP Pulse Ox 98.7 F 99 18 155/84 H 96 05/13/19 20:29 05/13/19 20:29 05/13/19 20:29 05/13/19 20:29 05/13/19 20:29 - Laboratory Result Diagrams: 05/13/19 15:22 05/13/19 15:22 Laboratory results interpreted by me: 05/13/19 05/13/19 15:22 15:22 RBC 4.19 L MCV 99 H MCH 33.7 H RDW 14.7 H ESR 21 H AST 89 H Alkaline Phosphatase 174 H Total Protein 8.3 H Discharge - Discharge Clinical Impression: Chronic cellulitis, Lower leg edema Chronic ulcer of ankle Qualifiers: Laterality: left Non-pressure ulcer stage: with necrosis of muscle Qualified Code(s): L97.323 - Non-pressure chronic ulcer of left ankle with necrosis of muscle Condition: Stable Disposition: HOME, SELF-CARE Additional Instructions: Keep your wound clean and dressed. Try to avoid putting any pressure on the wound, so change how you sleep or put a pillow between your ankles when you are sleeping. Try to elevate your legs above your heart as much as possible to help reduce the lower leg swelling. Wear socks that do not squeeze your leg so tightly leaving those indentations like you are wearing today. [facility] with [facility] if your ulcer does not improve over the next few weeks. RETURN TO THE EMERGENCY ROOM IF ANY NEW OR WORSENING SYMPTOMS. Referrals: GEN MEDINA MD [Primary Care Provider] - Follow up as needed [facility] [Provider Group] - Follow up as needed Scribe Attestation: 05/13/19 20:50 I personally performed the services described in the documentation, reviewed and edited the documentation which was dictated to the scribe in my presence, and it accurately records my words and actions. I personally performed the services described in the documentation, reviewed and edited the documentation which was dictated to the scribe in my presence, and it accurately records my words and actions.
[2019-05-14 00:29] VITALS: BP 150/79
== END 2019-05-14 00:32 | disposition home or self-care (01) ==
LOC: ER 14:20
DX: L97.323 Non-pressure chronic ulcer of left ankle with necrosis of muscle (principal); L03.90 Cellulitis, unspecified; R60.0 Localized edema; M25.561 Pain in right knee; M25.562 Pain in left knee; G89.29 Other chronic pain; F17.210 Nicotine dependence, cigarettes, uncomplicated; R26.2 Difficulty in walking, not elsewhere classified; Z91.048 Other nonmedicinal substance allergy status
CPT/HCPCS: 36415; 80053; 84550; 85025; 85652; 86140; 87040; 99283

== ENCOUNTER 2019-05-21 10:09 | Emergency (ER) | payer MEDICARE, MEDICAID ==
[2019-05-21 10:35] VITALS: BP 112/77
--- NOTE | 2019-05-21 10:47 | ER Document Report ---
HPI - HPI Patient complains to provider of: Dressing change Time Seen by Provider: 05/21/19 10:45 Onset: Other Onset/Duration: Better Quality of pain: No pain Pain Level: Denies Context: Patient presents to the emergency department with request for dressing change. Patient is homeless. Reports he got it wet and dirty. Has not changed it since the last time he was here. Patient reports the site looks better after we removed the dressing. He denies pain at the site. He denies other symptoms such as fever vomiting diarrhea. I asked patient if he was just here for the dressing change he said yes he has no other mething about he was trespassing and the police caught him, going to arrest him.. They offered to [facility] the homeless [facility] or to [facility] for the dressing change. Patient is using a wheelchair. He reports he uses it because he has arthritis in both his knees. Associated Symptoms: None Exacerbated by: Denies Relieved by: Denies Similar symptoms previously: Yes Recently seen / treated by doctor: Yes - REPRODUCTIVE Reproductive: DENIES: : Past Medical History - General Information source: Patient - Social History Smoking Status: Current Every Day Smoker Cigarette use (# per day): Yes Frequency of alcohol use: Occasional Lives with: Homeless Family History: Reviewed & Not Pertinent, Hyperlipidemia, Hypertension Patient has suicidal ideation: No Patient has homicidal ideation: No - Past Medical History Cardiac Medical History: Reports: Hx Hypercholesterolemia Renal/ Medical History: Denies: Hx Peritoneal Dialysis GI Medical History: Reports: Hx Hepatitis - c Musculoskeletal Medical History: Reports Hx Arthritis, Reports Hx Musculoskeletal Deformity, Reports Hx Musculoskeletal Trauma Skin Medical History: Reports Hx Cellulitis Psychiatric Medical History: Reports: Hx Schizophrenia Traumatic Medical History: Reports: Hx Fractures Infectious Medical History: Reports: Hx Hepatitis - c Past Surgical History: Reports: Hx Abdominal Surgery - hernia repair, Hx Inguinal Hernia, Hx Oral Surgery - Hair lip repaired, Hx Rectal Surgery - hemor rhoid surgery - Immunizations Immunizations up to date: Yes Hx Diphtheria, Pertussis, Tetanus Vaccination: Yes Vertical Provider Document - CONSTITUTIONAL Agree With Documented VS: Yes Exam Limitations: No Limitations General Appearance: WD/WN, No Apparent Distress - Patient is very calm smiling alert and oriented nontoxic looking - INFECTION CONTROL TRAVEL OUTSIDE OF THE [place] IN LAST 30 DAYS: No - HEENT HEENT: Atraumatic, Normocephalic, PERRLA - NECK Neck: Supple - RESPIRATORY Respiratory: No Respiratory Distress - CARDIOVASCULAR Cardiovascular: Regular Rate - MUSCULOSKELETAL/EXTREMETIES Musculoskeletal/Extremeties: MAEW, FROM, Tender - left knee - NEURO Level of Consciousness: Awake, Alert, Appropriate - DERM Integumentary: Warm, Dry Adult Front & Back Diagram: 1 - Ulcer 3x 3 cm circular decubitus noted to left inner ankle. No discharge, no warmth, no erythema, no swelling. Course - Re-evaluation Re-evalutation: 05/21/19 11:02 Patient was instructed on the ulcer care of the wound instructed to watch for si gns of infection. He was educated on the signs and symptoms of infection. He was instructed to return here for any concerns pain or signs of infection. He verbalized understanding. Reports [facility]. He also reports he is waiting to get into some type of apartment. Area cleaned well dressing reapplied by AIYANA Brady Dictation of this chart was performed using voice recognition software; therefore, there may be some unintended grammatical errors. 05/21/19 11:04 - Vital Signs Vital signs: Temp Pulse Resp BP Pulse Ox 98.0 F 93 14 112/77 97 05/21/19 10:28 05/21/19 10:28 05/21/19 10:28 05/21/19 10:28 05/21/19 10:28 Discharge - Discharge Clinical Impression: Dressing change, Chronic ulcer of left ankle Condition: Stable Disposition: HOME, SELF-CARE Instructions: Soap Cleansing (OM) Additional Instructions: *You have been treated for a dressing change for your chronic ulcer to your left ankle *Monitor the site for signs of infection such as pain, redness, swelling, warmth *Keep the area clean, change the dressing daily. *Follow up with a primary care provider within one week *Return to ED for signs of infection, worsening condition, changes, needs Referrals: GEN MEDINA MD [Primary Care Provider] - Follow up in 3-5 days
== END 2019-05-21 11:00 | disposition home or self-care (01) ==
LOC: ER 10:09
DX: Z48.00 Encounter for change or removal of nonsurgical wound dressing (principal); L89.529 Pressure ulcer of left ankle, unspecified stage; F17.210 Nicotine dependence, cigarettes, uncomplicated; Z99.3 Dependence on wheelchair; Z59.0 Homelessness
CPT/HCPCS: 99283

== ENCOUNTER 2019-06-02 15:21 | Emergency (ER) | payer MEDICARE, MEDICAID ==
[2019-06-02] MEDS ORDERED: CLINDAMYCIN 300 MG/D5W RTU 300 MG/50 ML RTUPB IV ONE (17:06)
--- NOTE | 2019-06-02 17:09 | ER Document Report ---
ED Medical Screen (RME) - General Chief Complaint: Leg Pain Stated Complaint: LEFT LEG PAIN Time Seen by Provider: 06/02/19 16:37 Notes: Patient is a 64-year-old homeless wheelchair-bound patient who presents to the emergency department with a chief complaint of left foot swelling, redness, and pain. He had a previous surgery on his foot at [facility]. He was seen here in the emergency department about 2 weeks ago and month ago. He was offered antibiotics, but the patient stated he did not want any. Patient scoots around on his wheelchair with both his feet. Exam: Dressing noted to the left foot with foul odor. 2+ pitting edema to left ankle area. Erythema noted to left ankle. I have greeted and performed a rapid initial assessment of this patient. A comprehensive ED assessment and evaluation of the patient, analysis of test r esults and completion of medical decision making process will be conducted by an additional ED providers. TRAVEL OUTSIDE OF THE [place] IN LAST 30 DAYS: No - Related Data Allergies/Adverse Reactions: Horse/Equine Containing Products [Horse/Equine Product Derivatives] Allergy (Verified 06/02/19 15:46) Past Medical History - Past Medical History Cardiac Medical History: Reports: Hx Hypercholesterolemia Renal/ Medical History: Denies: Hx Peritoneal Dialysis GI Medical History: Reports: Hx Hepatitis - c Musculoskeltal Medical History: Reports Hx Arthritis, Reports Hx Musculoskeletal Deformity, Reports Hx Musculoskeletal Trauma Skin Medical History: Reports Hx Cellulitis Psychiatric Medical History: Reports: Hx Schizophrenia Traumatic Medical History: Reports: Hx Fractures Infectious Medical History: Reports: Hx Hepatitis - c Past Surgical History: Reports: Hx Abdominal Surgery - hernia repair, Hx Inguinal Hernia, Hx Oral Surgery - Hair lip repaired, Hx Rectal Surgery - hemorrhoid surgery - Immunizations Immunizations up to date: Yes Hx Diphtheria, Pertussis, Tetanus Vaccination: Yes Physical Exam - Vital signs Vitals: Temp Pulse Resp BP Pulse Ox 98.6 F 101 H 20 126/74 H 94 06/02/19 16:02 06/02/19 16:06/02/19 16:02 06/02/19 16:02 06/02/19 16:02 Course - Vital Signs Vital signs: Temp Pulse Resp BP Pulse Ox 98.6 F 101 H 20 126/74 H 94 06/02/19 16:02 06/02/19 16:02 06/02/19 16:02 06/02/19 16:02 06/02/19 16:02
[2019-06-02 17:38] LABS: ABSOLUTE BASOPHILS # (AUTO) 0.1 10^3/uL (0.0-0.2); ABSOLUTE EOSINOPHILS # (AUTO) 0.2 10^3/uL (0.0-0.6); ABSOLUTE LYMPHOCYTES (AUTO) 1.5 10^3/uL (0.5-4.7); ABSOLUTE MONOCYTES (AUTO) 0.6 10^3/uL (0.1-1.4); ABSOLUTE NEUT (AUTO) 3.2 10^3/uL (1.7-8.2); BASOPHILS % (AUTO) 2.3 % (0-2); EOSINOPHILS % (AUTO) 3.4 % (0-6); HEMATOCRIT 45.6 % (37.9-51.0); HEMOGLOBIN 15.6 g/dL (13.5-17.0); LYMPHOCYTES % (AUTO) 26.9 % (13-45); MEAN CORPUSCULAR HEMOGLOBIN 34.2 pg (27.0-33.4); MEAN CORPUSCULAR HGB CONC 34.1 g/dL (32.0-36.0); MEAN CORPUSCULAR VOLUME 100 fl (80-97); MONOCYTES % (AUTO) 10.3 % (3-13); PLATELET COUNT 244 10^3/uL (150-450); RED BLOOD COUNT 4.55 10^6/uL (4.35-5.55); RED CELL DISTRIBUTION WIDTH 15.3 % (11.5-14.0); SEGMENTED NEUTROPHILS % (AUTO) 57.1 % (42-78); TOTAL CELLS COUNTED % (AUTO) 100 %; WHITE BLOOD COUNT 5.6 10^3/uL (4.0-10.5)
[2019-06-02 18:02] LABS: ALANINE AMINOTRANSFERASE 61 U/L (21-72); ALKALINE PHOSPHATASE 117 U/L (38-126); ANION GAP 13 (5-19); ASPARTATE AMINO TRANSFERASE 92 U/L (17-59); BILIRUBIN,DIRECT 0.5 mg/dL (0.0-0.4); BILIRUBIN,TOTAL 0.6 mg/dL (0.2-1.3); BLOOD UREA NITROGEN 7 mg/dL (7-20); C-REACTIVE PROTEIN 5.6 mg/L (<10.0); CARBON DIOXIDE 24 mmol/L (22-30); CHLORIDE 107 mmol/L (98-107); GLUCOSE 93 mg/dL (75-110); POTASSIUM 4.4 mmol/L (3.6-5.0); TOTAL PROTEIN 8.6 g/dL (6.3-8.2)
[2019-06-02 18:15] LABS: ERYTHROCYTE SEDIMENTATION RATE 22 mm/hr (0-20)
--- NOTE | 2019-06-02 19:02 | RADIOLOGY REPORT (SQ) ---
EXAM DESCRIPTION: ANKLE LEFT COMPLETE COMPLETED DATE/TIME: 06/02/2019 6:51 pm REASON FOR STUDY: eval osteomylitis COMPARISON: None. NUMBER OF VIEWS: Three views left ankle LIMITATIONS: None. FINDINGS: Osteopenic. No fracture. No effusion. Medial soft tissue swelling. OTHER: No other significant finding. IMPRESSION: Osteopenia without bone lesion or fracture. TECHNICAL DOCUMENTATION: JOB ID: [id number] Reading location - IP/workstation name: [email or web address]
--- NOTE | 2019-06-02 19:19 | ER Document Report ---
ED Extremity Problem, Lower - General Chief Complaint: Leg Pain Stated Complaint: LEFT LEG PAIN Time Seen by Provider: 06/02/19 16:37 TRAVEL OUTSIDE OF THE [place] IN LAST 30 DAYS: No - HPI Notes: Patient is a 64-year-old male that presents to the emergency department for chief complaint of left ankle wound. Patient is homeless and wheelchair-bound. He states that Maxi BRAMBILA was "messing with him" today. He told him he had a wound on his ankle and they called EMS who brought him to the emergency room. He denies any increased pain in his foot. He has not changed his dressing since his previous visit in the emergency room. Patient does not have any primary care or made any efforts to go to 1 of the [facility]. He denies recent fever, chills, nausea, vomiting, chest pain, shortness of breath and abdominal pain. Past Medical History: Chronic leg wound Past Surgical History: Reviewed in chart Social History: Reviewed in chart Family History: Reviewed and noncontributory for presenting illness Allergies: Reviewed, see documented allergy list. REVIEW OF SYSTEMS: CONSTITUTIONAL : No fever No chills No diaphoresis No recent illness EENT: No vision changes No congestion No sore throat CARDIOVASCULAR: No chest pain No palpitations RESPIRATORY: No shortness of breath No cough No difficulty breathing GASTROINTESTINAL: No abdominal pain No nausea No vomiting No diarrhea GENITOURINARY: No dysuria No hematuria No difficulty urinating MUSCULOSKELETAL: No back pain No leg pain No arm pain SKIN: No rashes Left ankle lesions LYMPHATIC: No swollen, enlarged glands. NEUROLOGICAL: No lightheadedness No headache No weakness No paresthesias PSYCHIATRIC: No anxiety No depression PHYSICAL EXAMINATION: Vital signs reviewed, nursing noted reviewed. GENERAL: Disheveled, well-nourished and in no acute distress. HEAD: Atraumatic, normocephalic. EYES: Eyes appear normal, extraocular movements intact, sclera anicteric, conjunctiva are normal. ENT: nares patent, oropharynx clear without exudates. Mildly dry mucous membranes. NECK: Normal range of motion, supple without lymphadenopathy LUNGS: Breath sounds clear to auscultation bilaterally and equal. No wheezes rales or rhonchi. HEART: Regular rate and rhythm without murmurs ABDOMEN: Soft, nontender, normoactive bowel sounds. No rebound, guarding, or rigidity. No masses appreciated. EXTREMITIES: Medial left ankle tenderness around wound, no left ankle edema and no bony tenderness to the left ankle, good range of motion, NEUROLOGICAL: No focal neurological deficits. Moves all extremities spontaneously Motor and sensory grossly intact on exam. PSYCH: Normal mood, normal affect. SKIN: Warm, Dry, normal turgor, chronic wound to medial left ankle with mild surrounding erythema consistent with venous stasis. No active bleeding or drainage. Mildly tender without lymphatic streaking. - Related Data Allergies/Adverse Reactions: Horse/Equine Containing Products [Horse/Equine Product Derivatives] Allergy (Verified 06/02/19 15:46) Past Medical History - Social History Smoking Status: Current Every Day Smoker Family History: Reviewed & Not Pertinent, Hyperlipidemia, Hypertension Patient has suicidal ideation: No Patient has homicidal ideation: No - Past Medical History Cardiac Medical History: Reports: Hx Hypercholesterolemia Renal/ Medical History: Denies: Hx Peritoneal Dialysis GI Medical History: Reports: Hx Hepatitis - c Musculoskeletal Medical History: Reports Hx Arthritis, Reports Hx Musculoskeletal Deformity, Reports Hx Musculoskeletal Trauma Skin Medical History: Reports Hx Cellulitis Psychiatric Medical History: Reports: Hx Schizophrenia Traumatic Medical History: Reports: Hx Fractures Infectious Medical History: Reports: Hx Hepatitis - c Past Surgical History: Reports: Hx Abdominal Surgery - hernia repair, Hx Ingui nal Hernia, Hx Oral Surgery - Hair lip repaired, Hx Rectal Surgery - hemorrhoid surgery - Immunizations Immunizations up to date: Yes Hx Diphtheria, Pertussis, Tetanus Vaccination: Yes Physical Exam - Vital signs Vitals: Temp Pulse Resp BP Pulse Ox 98.6 F 101 H 20 126/74 H 94 06/02/19 16:02 06/02/19 16:02 06/02/19 16:02 06/02/19 16:02 06/02/19 16:02 Course - Re-evaluation Re-evalutation: 06/02/19 19:16 Vitals reviewed. Nursing notes reviewed. Patient is disheveled but well- appearing and nontoxic. His vital signs are stable. He had lab work drawn in triage which is unremarkable. He has no leukocytosis or fever to suggest worsening of this chronic wound. His CRP is normal and his x-ray shows no osteomyelitis. Patient has had multiple visits to the emergency room for this wound before. The dressing I removed today was previously put on this month in the ED. His wound will be redressed. I did continuously expressed to him the importance of going to 1 of the free clinics to have wound management. We did also discussed wound care. Patient counseled on return precautions and verbalized understanding. He is stable at discharge. Laboratory 06/02/19 06/02/19 06/02/19 17:10 17:10 18:34 WBC 5.6 RBC 4.55 Hgb 15.6 Hct 45.6 MCV 100 H MCH 34.2 H MCHC 34.1 RDW 15.3 H Plt Count 244 Seg Neutrophils % 57.1 Lymphocytes % 26.9 Monocytes % 10.3 Eosinophils % 3.4 Basophils % 2.3 H Absolute Neutrophils 3.2 Absolute Lymphocytes 1.5 Absolute Monocytes 0.6 Absolute Eosinophils 0.2 Absolute Basophils 0.1 ESR 22 H Sodium 144.2 Potassium 4.4 Chloride 107 Carbon Dioxide 24 Anion Gap 13 BUN 7 Creatinine 0.63 Est GFR ( Amer) > 60 Est GFR (Non-Af Amer) > 60 Glucose 93 Lactic Acid 1.9 Calcium 10.0 Total Bilirubin 0.6 Direct Bilirubin 0.5 H Neonat Total Bilirubin Not Reportable Neonat Direct Bilirubin Not Reportable Neonat Indirect Bili Not Reportable AST 92 H ALT 61 Alkaline Phosphatase 117 C-Reactive Protein 5.6 Total Protein 8.6 H Albumin 5.0 Ankle X-Ray 06/02/19 17:03 IMPRESSION: Osteopenia without bone lesion or fracture. - Vital Signs Vital signs: Temp Pulse Resp BP Pulse Ox 98.6 F 101 H 20 126/74 H 94 06/02/19 16:02 06/02/19 16:02 06/02/19 16:02 06/02/19 16:02 06/02/19 16:02 - Laboratory Result Diagrams: 06/02/19 17:10 06/02/19 17:10 Laboratory results interpreted by me: 06/02/19 06/02/19 17:10 17:10 MCV 100 H MCH 34.2 H RDW 15.3 H Basophils % 2.3 H ESR 22 H Direct Bilirubin 0.5 H AST 92 H Total Protein 8.6 H Discharge - Discharge Clinical Impression: Leg wound, left Qualifiers: Encounter type: subsequent encounter Qualified Code(s): S81.802D - Unspecified open wound, left lower leg, subsequent encounter Condition: Stable Disposition: HOME, SELF-CARE Additional Instructions: Please return to the emergency department if you have any worsening, or concern of your symptoms. Please return to the emergency department if you develop chest pain, difficulty breathing, severe abdominal pain, or ongoing vomiting. Please follow-up with your primary care physician in 2-3 days and any other recommended physicians. If prescribed, take all medications as directed. If you have any questions or concerns do not hesitate to return the emergency department for evaluation. Keep your wound clean and dry Remove your dressing that was placed today to clean the wound with soapy water Please contact 1 of the provided facilities for wound reevaluation Referrals: [facility] [Provider Group] - Follow up as needed [facility] [Provider Group] - Follow up as needed [facility] [Provider Group] - Follow up as needed
[2019-06-02 20:52] VITALS: BP 145/85
== END 2019-06-02 20:40 | disposition home or self-care (01) ==
LOC: ER 15:21
DX: S81.802D Unspecified open wound, left lower leg, subsequent encounter (principal); M79.605 Pain in left leg; X58.XXXD Exposure to other specified factors, subsequent encounter; F17.200 Nicotine dependence, unspecified, uncomplicated
CPT/HCPCS: 99283; 96365; 96366; 36415; 83605; 85025; 85652; 86140; 80053; 73610; J3490

== ENCOUNTER 2019-10-24 07:45 | Emergency (ER) | payer MEDICAID, MEDICARE ==
[2019-10-24 08:47] LABS: ABSOLUTE EOSINOPHILS # (AUTO) 0.2 10^3/uL (0.0-0.6); ABSOLUTE MONOCYTES (AUTO) 0.5 10^3/uL (0.1-1.4); ABSOLUTE NEUT (AUTO) 2.3 10^3/uL (1.7-8.2); BASOPHILS % (AUTO) 1.1 % (0-2); HEMATOCRIT 46.3 % (37.9-51.0); HEMOGLOBIN 15.9 g/dL (13.5-17.0); LYMPHOCYTES % (AUTO) 24.4 % (13-45); MEAN CORPUSCULAR HEMOGLOBIN 35.8 pg (27.0-33.4); MEAN CORPUSCULAR HGB CONC 34.4 g/dL (32.0-36.0); MEAN CORPUSCULAR VOLUME 104 fl (80-97); MONOCYTES % (AUTO) 11.7 % (3-13); PLATELET COUNT 151 10^3/uL (150-450); RED BLOOD COUNT 4.45 10^6/uL (4.35-5.55); RED CELL DISTRIBUTION WIDTH 13.9 % (11.5-14.0); SEGMENTED NEUTROPHILS % (AUTO) 57.8 % (42-78); TOTAL CELLS COUNTED % (AUTO) 100 %
--- NOTE | 2019-10-24 08:47 | EKG REPORT ---
SEVERITY:- ABNORMAL ECG - SINUS RHYTHM ABNRM R PROG, CONSIDER ASMI OR LEAD PLACEMENT : Confirmed by: Manny Alicea 24-Oct-2019 08:46:56
[2019-10-24 09:02] LABS: APPEARANCE,URINE CLEAR; BILIRUBIN,URINE NEGATIVE (NEGATIVE); COLOR,URINE YELLOW; GLUCOSE, URINE NEGATIVE (NEGATIVE); KETONES,URINE NEGATIVE (NEGATIVE); LEUKOCYTE ESTERASE,URINE NEGATIVE (NEGATIVE); NITRITE,URINE NEGATIVE (NEGATIVE); PROTEIN,URINE NEGATIVE (NEGATIVE); URINE SPECIFIC GRAVITY 1.016; UROBILINOGEN,URINE NEGATIVE mg/dL (<2.0)
[2019-10-24 09:17] LABS: ALBUMIN 5.1 g/dL (3.5-5.0); ALCOHOL 114 mg/dL (NONE DETECTED); ALKALINE PHOSPHATASE 106 U/L (38-126); ANION GAP 15 (5-19); ASPARTATE AMINO TRANSFERASE 207 U/L (17-59); BILIRUBIN,DIRECT 0.3 mg/dL (0.0-0.4); BILIRUBIN,TOTAL 0.5 mg/dL (0.2-1.3); BLOOD UREA NITROGEN 8 mg/dL (7-20); CALCIUM 9.9 mg/dL (8.4-10.2); CARBON DIOXIDE 27 mmol/L (22-30); CHLORIDE 101 mmol/L (98-107); GLUCOSE 83 mg/dL (75-110); POTASSIUM 4.2 mmol/L (3.6-5.0); TOTAL PROTEIN 8.9 g/dL (6.3-8.2)
--- NOTE | 2019-10-24 10:24 | RADIOLOGY REPORT (SQ) ---
EXAM DESCRIPTION: CT HEAD WITHOUT COMPLETED DATE/TIME: 10/24/2019 10:07 am REASON FOR STUDY: fall, injury COMPARISON: CT brain 02/15/2016, 07/05/2012 TECHNIQUE: Axial images acquired through the brain without intravenous contrast. Images reviewed wi th bone, brain and subdural windows. Additional sagittal and coronal reconstructions were generated. Images stored on PACS. All CT scanners at this facility use dose modulation, iterative reconstruction, and/or weight based d osing when appropriate to reduce radiation dose to as low as reasonably achievable (ALARA). [facility]: Dose Right [facility]: CareDose [facility]: Dose Right [facility]: Teradose 4D [facility]: One[employer] Virtual RADIATION DOSE: CT Rad equipment meets quality standard of care and radiation dose reduction techniq ues were employed. CTDIvol: 53.2 mGy. DLP: 1044 mGy-cm. mGy. LIMITATIONS: None. FINDINGS: VENTRICLES: Normal size and contour. CEREBRUM: No masses. No hemorrhage. No midline shift. No evidence for acute infarction. Normal gra y/white matter differentiation. No areas of low density in the white matter. CEREBELLUM: No masses. No hemorrhage. No alteration of density. No evidence for acute infarction. EXTRAAXIAL SPACES: No fluid collections. No masses. ORBITS AND GLOBE: No intra- or extraconal masses. Normal contour of globe without masses. CALVARIUM: No fracture. PARANASAL SINUSES: No fluid or mucosal thickening. SOFT TISSUES: Scalp swelling with hematoma over the frontal convexity. No underlying skull fracture or acute intracranial changes. OTHER: No other significant finding. IMPRESSION: No acute intracranial changes. Scalp laceration with focal soft tissue swelling over th e frontal region. EVIDENCE OF ACUTE STROKE: NO. COMMENT: Quality ID # 436: Final reports with documentation of one or more dose reduction techniques (e.g., Automated exposure control, adjustment of the mA and/or kV according to patient size, use of iterative reconstruction technique) TECHNICAL DOCUMENTATION: JOB ID: [id number] [employer]- All Rights Reserved Reading location - IP/workstation name: [email or web address]
--- NOTE | 2019-10-24 10:27 | RADIOLOGY REPORT (SQ) ---
EXAM DESCRIPTION: CT CERVICAL SPINE WITHOUT COMPLETED DATE/TIME: 10/24/2019 10:07 am REASON FOR STUDY: fall, injury COMPARISON: CT cervical spine 07/05/2012 TECHNIQUE: Axial images acquired through the cervical spine without intravenous contrast. Images re viewed with lung, soft tissue and bone windows. Reconstructed coronal and sagittal MPR images review ed. Images stored on PACS. All CT scanners at this facility use dose modulation, iterative reconstruction, and/or weight based d osing when appropriate to reduce radiation dose to as low as reasonably achievable (ALARA). [facility]: Dose Right [facility]: CareDose [facility]: Dose Right [facility]: Teradose 4D [facility]: Smart Useful at Night RADIATION DOSE: CT Rad equipment meets quality standard of care and radiation dose reduction techniq ues were employed. CTDIvol: 16.7 mGy. DLP: 345 mGy-cm. mGy. LIMITATIONS: None. FINDINGS: ALIGNMENT: Reversal of cervical curvature likely related to muscle spasm. MINERALIZATION: Normal. VERTEBRAL BODIES: No fractures or dislocation. DISCS: Craniocervical junction, C1-2 are unremarkable. At C2-3, moderate left foraminal narrowing results from facet and uncovertebral hypertrophy. No cent ral canal or right foraminal narrowing. At C3-4, mild posterior disc bulging is present without central or right foraminal narrowing. High-g rade left foraminal stenosis from facet and uncovertebral hypertrophy. At C4-5, no central or foraminal encroachment is present. Small left paracentral disc protrusion. At C5-6, broad diffuse disc bulge and bony spurring is present with borderline central canal narrowin g, mild right and left foraminal narrowing. At C6-7, broad diffuse disc bulge and bony spurring is present with borderline central canal narrowin g and mild bilateral foraminal narrowing. C7-T1 is unremarkable. FACETS, LATERAL MASSES, POSTERIOR ELEMENTS: No fractures. No dislocation. No acute findings. HARDWARE: None in the spine. VISUALIZED RIBS: No fractures. LUNG APICES AND SOFT TISSUES: No significant or acute findings. OTHER: No other significant finding. IMPRESSION: Reversal of cervical curvature likely due to muscle spasm. No acute fracture. Multilevel degenerative change as above. TECHNICAL DOCUMENTATION: JOB ID: [id number] Quality ID # [id number]: Final reports with documentation of one or more dose reduction techniques (e.g., Au tomated exposure control, adjustment of the mA and/or kV according to patient size, use of iterative reconstruction technique) 2010 [employer]- All Rights Reserved Reading location - IP/workstation name: [email or web address]
--- NOTE | 2019-10-24 10:49 | RADIOLOGY REPORT (SQ) ---
EXAM DESCRIPTION: CHEST 2 VIEWS COMPLETED DATE/TIME: 10/24/2019 10:16 am REASON FOR STUDY: fall, injury COMPARISON: PA and lateral views of the chest from 06/03/2017. EXAM PARAMETERS: NUMBER OF VIEWS: two views TECHNIQUE: PA and lateral views of the chest were obtained. RADIATION DOSE: NA LIMITATIONS: none FINDINGS: LUNGS AND PLEURA: No consolidation, pleural effusion or pneumothorax. MEDIASTINUM AND HILAR STRUCTURES: No mediastinal or hilar contour abnormality. HEART AND VASCULAR STRUCTURES: The cardiac silhouette and pulmonary vasculature are within normal alonso its. BONES: No acute findings. HARDWARE: None in the chest. OTHER: No other finding. IMPRESSION: No acute cardiopulmonary process. TECHNICAL DOCUMENTATION: JOB ID: [id number] [employer]- All Rights Reserved Reading location - IP/workstation name: [email or web address]
[2019-10-24 12:11] VITALS: BP 127/81
--- NOTE | 2019-10-25 08:56 | ER Document Report ---
Entered by JIMMY PAULSON SCRIBE 10/24/19 0932 Acting as scribe for:ORVILLE FULTON DO ED Fall - General Chief Complaint: Fall Stated Complaint: FALL/HEAD INJURY Time Seen by Provider: 10/24/19 08:51 Notes: Patient is a homeless 64-year-old male who presents to the emergency department today after complaints of falling out of his wheelchair. Patient is wrapped up in blankets, stating that it was very cold outside. Patient complains of generalized myalgias resulting from this fall. Patient has a bandages around his head with dried blood on his face, bleeding now controlled. Patient states he is not sure how he fell out of his wheelchair but he thinks he fell asleep. Patient states he "thinks he landed on the top of his head". TRAVEL OUTSIDE OF THE [place] IN LAST 30 DAYS: No - Related data Allergies/Adverse Reactions: Horse/Equine Containing Products [Horse/Equine Product Derivatives] Allergy (Verified 06/02/19 15:46) Past Medical History - Social History Smoking Status: Current Every Day Smoker Family History: Reviewed & Not Pertinent, Hyperlipidemia, Hypertension Patient has suicidal ideation: No Patient has homicidal ideation: No - Past Medical History Cardiac Medical History: Reports: Hx Hypercholesterolemia Renal/ Medical History: Denies: Hx Peritoneal Dialysis GI Medical History: Reports: Hx Hepatitis - c Musculoskeletal Medical History: Reports Hx Arthritis, Reports Hx Musculoskeletal Deformity, Reports Hx Musculoskeletal Trauma Skin Medical History: Reports Hx Cellulitis Psychiatric Medical History: Reports: Hx Schizophrenia Traumatic Medical History: Reports: Hx Fractures Infectious Medical History: Reports: Hx Hepatitis - c Past Surgical History: Reports: Hx Abdominal Surgery - hernia repair, Hx Inguinal Hernia, Hx Oral Surgery - Hair lip repaired, Hx Rectal Surgery - hemorrhoid surgery - Immunizations Immunizations up to date: Yes Hx Diphtheria, Pertussis, Tetanus Vaccination: Yes Physical Exam - Vital signs Vitals: Temp 98.7 F 10/24/19 07:59 Interpretation: Normal - General General appearance: Alert In distress: None - Intoxicated - HEENT Head: Normocephalic, Abrasions, Ecchymosis, Open wounds, Tenderness - Top of head with hematoma, abrasion. Bleeding controlled Eyes: Normal Cornea: Normal Pupils: PERRL - Respiratory Respiratory status: No respiratory distress Chest status: Nontender Breath sounds: Normal Chest palpation: Normal - Cardiovascular Rhythm: Regular Heart sounds: Normal auscultation Murmur: No - Abdominal Inspection: Normal Distension: No distension Bowel sounds: Normal Tenderness: Nontender Organomegaly: No organomegaly - Back Back: Normal, Nontender - Extremities General upper extremity: Normal inspection, Nontender, Normal color, Normal ROM, Normal temperature General lower extremity: Nontender, Normal color, Normal temperature, Other - Range of motion at baseline. No: Natanael's sign - Neurological Neuro grossly intact: Yes Cognition: Normal Orientation: AAOx4 Beyer Coma Scale Eye Opening: Spontaneous Beyer Coma Scale Verbal: Oriented Jo Coma Scale Motor: Obeys Commands Jo Coma Scale Total: 15 Speech: Normal Motor strength normal: LUE, RUE, LLE, RLE Sensory: Normal - Psychological Associated symptoms: Normal affect, Normal mood - Skin Skin Temperature: Warm Skin Moisture: Dry Skin Color: Normal Notes: Lower extremities with dry peeling skin. No erythema. Upper extremity with various bruises. No bleeding or decreased range of motion from baseline. Course - Re-evaluation Re-evalutation: 10/24/19 14:23 Patient is a 64-year-old male who is homeless and has a history of alcohol abuse. He apparently fell out of his wheelchair. Patient is known to social work and states that he is been told he is not allowed in the homeless care home because of his behavior. Have attempted to get a new wheelchair for this patient. We will give him a prescription and social work will help coordinate. [place] has tried to give him outpatient resources and try to coordinate community services to help him. Patient is grateful for care and otherwise stable for discharge. No acute findings on imaging labs, or urine. He is sober, and there are no signs of alcohol withdrawal. - Vital Signs Vital signs: Temp Pulse Resp BP Pulse Ox 98.7 F 17 127/81 H 96 10/24/19 07:59 10/24/19 13:00 10/24/19 08:01 10/24/19 13:00 - Laboratory Result Diagrams: 10/24/19 08:30 10/24/19 08:30 Laboratory results interpreted by me: 10/24/19 10/24/19 08:30 08:30 MCV 104 H MCH 35.8 H AST 207 H Total Protein 8.9 H Albumin 5.1 H Discharge - Discharge Clinical Impression: Head injury Qualifiers: Encounter type: initial encounter Qualified Code(s): S09.90XA - Unspecified injury of head, initial encounter Scalp abrasion Qualifiers: Encounter type: initial encounter Qualified Code(s): S00.01XA - Abrasion of scalp, initial encounter Scalp hematoma Qualifiers: Encounter type: initial encounter Qualified Code(s): S00.03XA - Contusion of scalp, initial encounter Alcohol intoxication Qualifiers: Complication of substance-induced condition: uncomplicated Qualified Code(s): F10.920 - Alcohol use, unspecified with intoxication, uncomplicated Condition: Stable Disposition: HOME, SELF-CARE Instructions: Acute Alcohol Intoxication ([facility]), Head Injury Precautions ([facility]), Scalp Hematoma ([facility]) Additional Instructions: Please return to the emergency department for wound check in 2 to 3 days. Prescriptions: Wheelchair 1 each MC DAILYP PRN #1 each PRN Reason: I personally performed the services described in the documentation, reviewed and edited the documentation which was dictated to the scribe in my presence, and it accurately records my words and actions.
== END 2019-10-24 16:33 | disposition home or self-care (01) ==
LOC: ER 07:45
DX: S09.90XA Unspecified injury of head, initial encounter (principal); S00.01XA Abrasion of scalp, initial encounter; S00.03XA Contusion of scalp, initial encounter; F10.920 Alcohol use, unspecified with intoxication, uncomplicated; M79.10 Myalgia, unspecified site; W05.0XXA Fall from non-moving wheelchair, initial encounter; F17.200 Nicotine dependence, unspecified, uncomplicated; E78.00 Pure hypercholesterolemia, unspecified; Z86.19 Personal history of other infectious and parasitic diseases
CPT/HCPCS: 36415; 70450; 71046; 72125; 80053; 80307; 81001; 84484; 85025; 93005; 93010

== ENCOUNTER 2019-10-26 06:23 | Emergency (ER) | payer MEDICARE ==
--- NOTE | 2019-10-26 10:11 | ER Document Report ---
ED General - General Chief Complaint: Head Injury without LOC Stated Complaint: HEAD INJURY Time Seen by Provider: 10/26/19 09:00 TRAVEL OUTSIDE OF THE [place] IN LAST 30 DAYS: No - HPI Notes: 64-year-old homeless male alcoholic who is apparently been kicked out of homeless [facility] recently because he continues to drink and engage in disruptive behavior at the [facility] with a chief complaint of recurrent fall and head injury. Patient was seen here 2 days ago by another provider stating that he had fallen on the street with undetermined loss of consciousness and he had a superficial forehead/scalp laceration which was apparently not sutured at that time. He is come back in today admitting that he has been drinking heavily and said that he fell from his wheelchair onto the pavement with undetermined loss of consciousness. He denies nausea vomiting or neck pain. He denies drug use. He says he uses a wheelchair because he has a "bad knee" related to severe arthritis. - Related Data Allergies/Adverse Reactions: Horse/Equine Containing Products [Horse/Equine Product Derivatives] Allergy (Verified 10/26/19 06:40) Past Medical History - General Information source: Patient, Emergency Med Personnel - Social History Smoking Status: Current Every Day Smoker Family History: Reviewed & Not Pertinent, Hyperlipidemia, Hypertension Patient has suicidal ideation: No Patient has homicidal ideation: No - Past Medical History Cardiac Medical History: Reports: Hx Hypercholesterolemia Renal/ Medical History: Denies: Hx Peritoneal Dialysis GI Medical History: Reports: Hx Hepatitis - c Musculoskeletal Medical History: Reports Hx Arthritis, Reports Hx Muscul oskeletal Deformity, Reports Hx Musculoskeletal Trauma Skin Medical History: Reports Hx Cellulitis Psychiatric Medical History: Reports: Hx Schizophrenia Traumatic Medical History: Reports: Hx Fractures Infectious Medical History: Reports: Hx Hepatitis - c Past Surgical History: Reports: Hx Abdominal Surgery - hernia repair, Hx Inguinal Hernia, Hx Oral Surgery - Hair lip repaired, Hx Rectal Surgery - hemorrhoid surgery - Immunizations Immunizations up to date: Yes Hx Diphtheria, Pertussis, Tetanus Vaccination: Yes Review of Systems - Review of Systems Notes: Constitutional: Negative for fever. HENT: Negative for sore throat. Eyes: Negative for visual changes. Cardiovascular: Negative for chest pain. Respiratory: Negative for shortness of breath. Gastrointestinal: Negative for abdominal pain, vomiting or diarrhea. Genitourinary: Negative for dysuria. Musculoskeletal: As per HPI. Skin: Negative for rash. Neurological: As per HPI. 10 point ROS negative except as marked above and in HPI. Physical Exam - Vital signs Vitals: Temp Pulse Resp BP Pulse Ox 97.7 F 86 16 141/74 H 97 10/26/19 06:39 10/26/19 06:39 10/26/19 06:39 10/26/19 06:39 10/26/19 06:39 - Notes Notes: GENERAL: Male patient approximately stated age with strong odor of alcohol and generally poor hygiene. SKIN: Diffuse flushing. Good turgor no rashes. HEAD: Patient has obvious laceration in the frontal scalp area along the h airline on the left. There is a lot of old matted blood in this area with no active bleeding and initially the laceration is poorly visualized because of this. EYES: PERRLA. Conjunctivae and sclerae clear. EARS: CANALS AND TMS CLEAR. NOSE: CLEAR. MOUTH: Moist mucosa. Poor dentition. No stridor or edema. No drooling. NECK: Supple. No masses or thyromegaly. No adenopathy. Carotids 2+ without bruits. No JVD. BACK: Symmetrical without tenderness. CHEST: Respirations unlabored. Breath sounds clear and symmetrical. HEART: Regular rhythm. No murmur gallop or rub. ABDOMEN: Soft nontender without masses, organomegaly or rebound. Bowel sounds normally active. No bruits. GENITALIA: Deferred. EXTREMITIES: No edema. No calf tenderness. Cap refill less than 1.5 seconds. Dorsalis pedis and posterior tibial pulses 3+ and symmetrical. NEUROLOGICAL: GCS 15. Alert and oriented x3. Slightly slurred speech. Cranial nerves II through XII intact. Sensorimotor and cerebellar normal. Normal tone. Course - Vital Signs Vital signs: Temp Pulse Resp BP Pulse Ox 98.2 F 97 16 142/56 H 99 10/26/19 11:37 10/26/19 11:37 10/26/19 11:37 10/26/19 11:37 10/26/19 11:37 - Laboratory Result Diagrams: 10/26/19 10:30 10/26/19 10:30 Laboratory results interpreted by me: 10/26/19 10/26/19 10/26/19 10:30 10:30 11:35 RBC 3.97 L MCV 103 H MCH 35.5 H Plt Count 136 L BUN 6 L AST 181 H Urine Ketones TRACE H Urine Urobilinogen 2.0 H Procedures - Laceration/Wound Repair Left Head Time completed: 16:30 Wound length (cm): 7 Wound's Depth, Shape: Into muscle, Flap Laceration pre-procedure: Chloraprep applied, Sterile drapes applied Anesthetic type: 1% Lidocaine w/epi Volume Anesthetic (mLs): 10 Wound explored: Clean Irrigated w/ Saline (mLs): 1,000 Wound Repaired With: Mj - 8 Layer Closure?: No Post-procedure wound care: Sterile dressing applied Post-procedure NV exam normal: Yes Complications: No Discharge - Discharge Clinical Impression: Homelessness Scalp laceration Qualifiers: Encounter type: initial encounter Qualified Code(s): S01.01XA - Laceration without foreign body of scalp, initial encounter Fall Qualifiers: Encounter type: initial encounter Qualified Code(s): W19.XXXA - Unspecified fall, initial encounter Condition: Stable Disposition: HOME, SELF-CARE Additional Instructions: See the doctor immediately if any signs of infection occur such as swelling, redness, drainage of pus, increasing tenderness, red streaks, tender lumps in the armpit or groin above the laceration, or fever. Unless you are instructed otherwise, you should not need to be seen again for any further evaluation of your wound. Avoid consumption of beer, wine or whiskey. Return here as needed for new or worsening symptoms or any signs of infection. Follow-up with referral physician for staple removal as directed in 7 to 10 days. Referrals: [facility] [Provider Group] - Follow up as needed
[2019-10-26 10:56] LABS: ABSOLUTE EOSINOPHILS # (AUTO) 0.2 10^3/uL (0.0-0.6); ABSOLUTE LYMPHOCYTES (AUTO) 1.2 10^3/uL (0.5-4.7); ABSOLUTE MONOCYTES (AUTO) 0.4 10^3/uL (0.1-1.4); ABSOLUTE NEUT (AUTO) 2.2 10^3/uL (1.7-8.2); EOSINOPHILS % (AUTO) 4.9 % (0-6); HEMATOCRIT 40.7 % (37.9-51.0); HEMOGLOBIN 14.1 g/dL (13.5-17.0); LYMPHOCYTES % (AUTO) 29.4 % (13-45); MEAN CORPUSCULAR HEMOGLOBIN 35.5 pg (27.0-33.4); MEAN CORPUSCULAR HGB CONC 34.6 g/dL (32.0-36.0); MEAN CORPUSCULAR VOLUME 103 fl (80-97); MONOCYTES % (AUTO) 9.7 % (3-13); PLATELET COUNT 136 10^3/uL (150-450); RED BLOOD COUNT 3.97 10^6/uL (4.35-5.55); RED CELL DISTRIBUTION WIDTH 13.7 % (11.5-14.0); TOTAL CELLS COUNTED % (AUTO) 100 %
[2019-10-26 11:13] LABS: ALBUMIN 4.5 g/dL (3.5-5.0); ALCOHOL 66 mg/dL (NONE DETECTED); ALKALINE PHOSPHATASE 93 U/L (38-126); ANION GAP 13 (5-19); ASPARTATE AMINO TRANSFERASE 181 U/L (17-59); BILIRUBIN,DIRECT 0.3 mg/dL (0.0-0.4); BILIRUBIN,TOTAL 0.7 mg/dL (0.2-1.3); BLOOD UREA NITROGEN 6 mg/dL (7-20); CALCIUM 9.3 mg/dL (8.4-10.2); CARBON DIOXIDE 25 mmol/L (22-30); CHLORIDE 102 mmol/L (98-107); GLUCOSE 77 mg/dL (75-110); POTASSIUM 4.2 mmol/L (3.6-5.0); TOTAL PROTEIN 7.8 g/dL (6.3-8.2)
[2019-10-26 12:02] LABS: APPEARANCE,URINE CLEAR; BILIRUBIN,URINE NEGATIVE (NEGATIVE); COLOR,URINE YELLOW; GLUCOSE, URINE NEGATIVE (NEGATIVE); KETONES,URINE TRACE mg/dL (NEGATIVE); PROTEIN,URINE NEGATIVE (NEGATIVE); URINE SPECIFIC GRAVITY 1.016
[2019-10-26 12:12] LABS: URINE AMPHETAMINES SCREEN NEGATIVE; URINE BARBITURATES SCREEN NEGATIVE; URINE BENZODIAZEPINES SCREEN NEGATIVE; URINE COCAINE SCREEN NEGATIVE; URINE MARIJUANA (THC) SCREEN NEGATIVE; URINE METHADONE SCREEN NEGATIVE; URINE PHENCYCLIDINE SCREEN NEGATIVE
--- NOTE | 2019-10-26 12:49 | RADIOLOGY REPORT (SQ) ---
EXAM DESCRIPTION: CT HEAD WITHOUT COMPLETED DATE/TIME: 10/26/2019 12:33 pm REASON FOR STUDY: trauma COMPARISON: None. TECHNIQUE: Axial images acquired through the brain without intravenous contrast. Images reviewed wi th bone, brain and subdural windows. 10/24/2019 Images stored on PACS. All CT scanners at this facility use dose modulation, iterative reconstruction, and/or weight based d osing when appropriate to reduce radiation dose to as low as reasonably achievable (ALARA). [facility]: Dose Right [facility]: CareDose [facility]: Dose Right [facility]: Teradose 4D [facility]: Smart Going My Way RADIATION DOSE: CT Rad equipment meets quality standard of care and radiation dose reduction techniq ues were employed. CTDIvol: 53.2 mGy. DLP: 1044 mGy-cm. mGy. LIMITATIONS: None. FINDINGS: VENTRICLES: Normal size and contour. CEREBRUM: No masses. No hemorrhage. No midline shift. No evidence for acute infarction. Normal gra y/white matter differentiation. No areas of low density in the white matter. CEREBELLUM: No masses. No hemorrhage. No alteration of density. No evidence for acute infarction. EXTRAAXIAL SPACES: No fluid collections. No masses. ORBITS AND GLOBE: No intra- or extraconal masses. Normal contour of globe without masses. CALVARIUM: No fracture. PARANASAL SINUSES: No fluid or mucosal thickening. SOFT TISSUES: No mass or hematoma. OTHER: No other significant finding. IMPRESSION: NORMAL BRAIN CT WITHOUT CONTRAST. EVIDENCE OF ACUTE STROKE: NO. COMMENT: Quality ID # [id number]: Final reports with documentation of one or more dose reduction techniques (e.g., Automated exposure control, adjustment of the mA and/or kV according to patient size, use of iterative reconstruction technique) TECHNICAL DOCUMENTATION: JOB ID: [id number] [employer]- All Rights Reserved Reading location - IP/workstation name: [email or web address]
[2019-10-26] MEDS ORDERED: LIDOCAINE 1%/EPINEPHRINE INJ 20 ML VIAL INJ ONE (15:25)
[2019-10-26 17:08] VITALS: BP 144/82
== END 2019-10-26 17:22 | disposition home or self-care (01) ==
LOC: ER 06:23
DX: S01.01XA Laceration without foreign body of scalp, initial encounter (principal); W19.XXXA Unspecified fall, initial encounter; Z91.81 History of falling; Z59.0 Homelessness; F17.200 Nicotine dependence, unspecified, uncomplicated; E78.00 Pure hypercholesterolemia, unspecified; Z86.19 Personal history of other infectious and parasitic diseases
CPT/HCPCS: 99284; 36415; 80307 ×2; 85025; 80053; 81001; 70450; 12002; J3490

== ENCOUNTER 2019-11-21 11:23 | Emergency (ER) | payer MEDICARE ==
[2019-11-21 11:36] VITALS: BP 128/63
--- NOTE | 2019-11-21 11:53 | ER Document Report ---
ED Suture/Wound Recheck - General Chief Complaint: Staple Removal Stated Complaint: WOUND RECHECK Time Seen by Provider: 11/21/19 11:45 TRAVEL OUTSIDE OF THE [place] IN LAST 30 DAYS: No - HPI Notes: 64-year-old male presents emergency room for staple removal after receiving 7 kentrell to his head on October 26 after falling from a wheelchair. All diagnostic images were negative. Patient is denies any fevers chills, no redness or drainage from staple site. Tetanus is up-to-date. Denies fevers, chills, chest pain,palpitations, shortness of breath, dyspnea, nausea, vomiting, diarrhea, abdominal pain, hematuria,blurred vision, double vision, loss of vision, speech changes, LH, dizziness, syncope, headaches, wheezing, ST, URI, neck pain, weakness, bowel or bladder dysfunction, saddle anesthesia, numbness or tingling in bilateral upper or lower extremities equally, muscle paralysis, weakness in bilateral upper or lower extremities equally or rash. - Related Data Allergies/Adverse Reactions: Horse/Equine Containing Products [Horse/Equine Product Derivatives] Allergy (Verified 11/21/19 11:38) Home Medications: denies Past Medical History - General Information source: Patient - Social History Smoking Status: Current Every Day Smoker Chew tobacco use (# tins/day): No Frequency of alcohol use: 64ox beer daily Drug Abuse: None Family History: Reviewed & Not Pertinent, Hyperlipidemia, Hypertension Patient has suicidal ideation: No Patient has homicidal ideation: No - Past Medical History Cardiac Medical History: Reports: Hx Hypercholesterolemia Renal/ Medical History: Denies: Hx Peritoneal Dialysis GI Medical History: Reports: Hx Hepatitis - c Musculoskeletal Medical History: Reports Hx Arthritis, Reports Hx Musculoskeletal Deformity, Reports Hx Musculoskeletal Trauma Skin Medical History: Reports Hx Cellulitis Psychiatric Medical History: Reports: Hx Schizophrenia Traumatic Medical History: Reports: Hx Fractures Infectious Medical History: Reports: Hx Hepatitis - c Past Surgical History: Reports: Hx Abdominal Surgery - hernia repair, Hx Inguinal Hernia, Hx Oral Surgery - Hair lip repaired, Hx Rectal Surgery - hemorrhoid surgery - Immunizations Immunizations up to date: Yes Hx Diphtheria, Pertussis, Tetanus Vaccination: Yes Review of Systems - Review of Systems Constitutional: No symptoms reported EENT: No symptoms reported Cardiovascular: No symptoms reported Respiratory: No symptoms reported Gastrointestinal: No symptoms reported Genitourinary: No symptoms reported Male Genitourinary: No symptoms reported Musculoskeletal: No symptoms reported Skin: See HPI Hematologic/Lymphatic: No symptoms reported Neurological/Psychological: No symptoms reported Physical Exam - Vital signs Vitals: Temp Pulse Resp BP Pulse Ox 97.4 F 87 16 128/63 H 92 11/21/19 11:35 11/21/19 11:35 11/21/19 11:35 11/21/19 11:35 11/21/19 11:35 - Notes Notes: PHYSICAL EXAMINATION:reviewed vital signs by RN GENERAL: Well-appearing, well-nourished and in no acute distress. HEAD: Atraumatic, normocephalic. EYES: Pupils equal round and reactive to light, extraocular movements intact, sclera anicteric, conjunctiva are normal. ENT: Nares patent, oropharynx clear without exudates. Moist mucous membranes. NECK: Normal range of motion, supple without lymphadenopathy LUNGS: Breath sounds clear to auscultation bilaterally and equal. No wheezes rales or rhonchi. HEART: Regular rate and rhythm without murmurs ABDOMEN: Soft, nontender, nondistended abdomen. No guarding, no rebound. No masses appreciated. Musculoskeletal: Normal range of motion, no pitting or edema. No cyanosis. NEUROLOGICAL: Cranial nerves grossly intact. Normal speech, normal gait. Normal sensory, motor exams PSYCH: Normal mood, normal affect. SKIN: Warm, Dry, normal turgor, no rashes or lesions noted. 7 [place] to anterior aspect of scalp in a linear fashion. No surrounding erythema induration or warmth to touch. Wound well approximated Course - Re-evaluation Re-evalutation: 11/21/19 11:52 Afebrile, vital stable, no distress. Nurse's notes reviewed. Clips applied, stable remover used to remove all 7 kentrell without incident. Patient tolerated procedure without incident. No induration swelling or drainage. Vital stable. After performing a Medical Screening Examination, I estimate there is LOW risk for OPEN FRACTURE, COMPARTMENT SYNDROME, TENDON RUPTURE, ACUTE NEUROVASCULAR INJURY, or RETAINED FOREIGN BODY, thus I consider the discharge disposition reasonable. Also, there is no evidence or peritonitis, sepsis, or toxicity. I have reevaluated this patient multiple times and no significant life threatening changes are noted. The patient and I have discussed the diagnosis and risks, and we agree with discharging home with close follow-up with the understanding that symptoms and presentations can change. We also discussed returning to the Emergency Department immediately if new or worsening symptoms occur. We have discussed the symptoms which are most concerning (e.g., changing or worsening pain, fever, numbness, weakness, cool or painful digits) that necessitate immediate return. - Vital Signs Vital signs: Temp Pulse Resp BP Pulse Ox 97.4 F 87 16 128/63 H 92 11/21/19 11:35 11/21/19 11:35 11/21/19 11:35 11/21/19 11:35 11/21/19 11:35 Discharge - Discharge Clinical Impression: Visit for suture removal Condition: Stable Disposition: HOME, SELF-CARE Instructions: Staple Removal ([facility]) Additional Instructions: [place] removed without any concerns. Wash with soap and water, monitor for any signs symptoms of redness, swelling, drainage. Return immediately for any new or worsening symptoms. Follow up with primary care provider, call tomorrow to make followup appointment. Referrals: GONZALO KOO MD [COMMUNITY BASED STAFF] - Follow up as needed
== END 2019-11-21 11:53 | disposition home or self-care (01) ==
LOC: ER 11:23
DX: Z48.02 Encounter for removal of sutures (principal); F17.200 Nicotine dependence, unspecified, uncomplicated; Z91.048 Other nonmedicinal substance allergy status
CPT/HCPCS: 99281